=== PATIENT | female | born 1975 | race Two or more races ===

== ENCOUNTER 2021-04-10 08:21 | Outpatient (REF) | payer OTHER, SELFPAY ==
--- NOTE | ~2021-04-10 | MM_ITS ---
EXAMINATION: MM SCREENING DIGITAL BREAST TOMOSYNTHESIS, BILATERAL CLINICAL INFORMATION: Screening. Asymptomatic. The lifetime risk of breast cancer based on the Tyrer-Cuzick Model is 11%. COMPARISON: Mammography: 05/05/2013 (baseline). TECHNIQUE: Digital breast tomosynthesis is performed in both the craniocaudal and mediolateral oblique views along with computer-aided detection (CAD). Synthesized 2D images are generated from the tomosynthesis. FINDINGS: The breasts are heterogeneously dense, which may obscure small masses (ACR BI-RADS breast composition Category c). There is no interval mass or developing density or architectural abnormality. The axilla and skin contours are unremarkable. Left breast has some interval scattered punctate calcifications without focal grouping or ductal distribution. Right breast has more numerous interval punctate calcifications with some loose grouping mid 11:00 position and posterior central position. Patient will be recalled for additional magnification views to fully characterize right breast calcifications. MM/MM tomosynthesis screening BI IMPRESSION: 1. Punctate calcifications with some loose grouping mid 11:00 and posterior central. 2. No significant changes from prior exam. ASSESSMENT: BI-RADS 0: Incomplete - Need Additional Imaging Evaluation RECOMMENDATION: 1. Additional views of the right breast (magnification CC, magnification ML). 2. Radiology department staff will contact the patient for additional imaging. This patient's information was entered into a reminder system with a target due date for their next mammogram.
== END 2021-04-10 08:22 | disposition home or self-care (01) ==
LOC: HO.MAMMO 08:21
PROVIDERS: PCP Internal Medicine; Visit Provider Internal Medicine
DX: Z12.31 Encounter for screening mammogram for malignant neoplasm of breast (principal)
CPT/HCPCS: 77063; 77067

== ENCOUNTER 2021-04-16 08:55 | Outpatient (REF) | payer OTHER, SELFPAY ==
--- NOTE | ~2021-04-16 | MM_ITS ---
EXAMINATION: MM DIAGNOSTIC DIGITAL MAMMOGRAPHY, RIGHT CLINICAL INFORMATION: Recall from screening for calcifications right breast. COMPARISON: Mammography: 04/10/2021 (BI-RADS 0), 05/05/2013 TECHNIQUE: Digital mammography is performed in the following views: Magnification CC x2, magnification ML x3 FINDINGS: The breasts are heterogeneously dense, which may obscure small masses (ACR BI-RADS breast composition Category c). Some of the calcifications mid 11:00 position show layering consistent with milk of calcium. Others are round. There are some other probable benign punctate calcifications central upper right breast and posterior right breast without layering. Results are discussed with the patient at time of visit. There are no additional mammograms between 2013 and 2021. Management plan is for short interval six-month follow-up right mammography to include magnification views. MM/MM added views RT IMPRESSION: Probable benign calcifications right breast in interval between 2013 and 2021. ASSESSMENT: BI-RADS 3: Probably Benign RECOMMENDATION: Diagnostic right mammography in 6 months. This patient's information was entered into a reminder system with a target due date for their next mammogram.
== END 2021-04-16 08:56 | disposition home or self-care (01) ==
LOC: HO.MAMMO 08:55
PROVIDERS: PCP Internal Medicine; Visit Provider Internal Medicine
DX: R92.1 Mammographic calcification found on diagnostic imaging of breast (principal)
CPT/HCPCS: 77065

== ENCOUNTER 2021-05-18 10:00 | Outpatient (REF) | payer OTHER, SELFPAY ==
[2021-05-18 11:23] LABS: MANUAL DIFF FLAG NO
[2021-05-18 11:38] LABS: Basophils Percent Auto 0.3 % (0-2); Eosinophils Absolute Auto 0.2 X10*3/uL (0.0-0.4); Eosinophils Percent Auto 1.9 % (0-4); Hematocrit 39.4 % (37.0-47.0); Hemoglobin 12.5 g/dl (12.0-16.0); Imm Gran Abs Auto 0.05 X10*3/uL (0.00-0.03); Imm Gran Pct Auto 0.6 % (0.0-0.4); Lymphocytes Absolute Auto 3.2 X10*3/uL (1.2-4.9); Lymphocytes Percent Auto 35.8 % (20-40); Mean Corpuscular HGB Conc 31.7 g/dl (31.0-35.0); Mean Corpuscular Hemoglobin 28.3 pg (27.0-33.0); Mean Corpuscular Volume 89.1 fL (80.0-98.0); Mean Platelet Volume 8.7 fL (9.4-12.3); Monocytes Absolute Auto 0.7 X10*3/uL (0.1-1.2); Monocytes Percent Auto 7.6 % (2-11); Neutrophils Absolute Auto 4.8 x10*3/uL (2.0-8.3); Neutrophils Percent Auto 53.8 % (45-73); Platelet Count 464 X10*3/uL (160-400); Red Blood Count 4.42 X10*6/uL (4.20-5.50); White Blood Count 8.9 X10*3/uL (4.8-10.8)
[2021-05-18 12:14] LABS: Alanine Aminotransferase 30 U/L (0-31); Albumin Level 4.7 g/dL (3.5-5.0); Alkaline Phosphatase 57 U/L (39-117); Anion Gap 14 (12-20); Aspartate Amino Transferase 21 U/L (5-31); Bilirubin Total 0.6 mg/dL (0.0-1.0); Blood Urea Nitrogen 11 mg/dL (9-16); Calcium 9.8 mg/dL (8.4-10.2); Carbon Dioxide 25 mmol/L (22-29); Chloride 104 mmol/L (96-108); Cholesterol 238 mg/dL; Estimated Glomerular Filt Rate > 60; Glucose Fasting 115 mg/dL (60-99); HDL Cholesterol 45 mg/dL; LDL Cholesterol Calculated 160 mg/dl; Potassium 4.4 mmol/L (3.3-5.1); Sodium 139 mmol/L (135-145); Triglycerides 168 mg/dL
[2021-05-18 12:36] LABS: TSH reflex Free T4 0.82 uIU/mL (0.32-4.0); Vitamin D 25-OH Total 14.9 ng/mL (>30)
[2021-05-18 12:55] LABS: Appearance Urine TURBID; Color Urine YELLOW; Glucose Urine UA NEG (NEG); Leukocyte Esterase Urine NEG (NEG); Nitrite Urine NEG (NEG); Specific Gravity - Urine >= 1.030 (1.005-1.025); UACC Culture Trigger NO; Urine Blood 2+ (NEG); Urine Ketones NEG (NEG); Urine Protein 1+ MG/DL (NEG-TRACE)
[2021-05-18 13:16] LABS: Amorphous Sediment Urine 4+ /LPF; RBC Urine 0-2 /HPF (0); Squamous Epithelial Cell Urine 1+ /LPF; WBC Urine 0-2 /HPF (0-4)
== END 2021-05-18 10:01 | disposition home or self-care (01) ==
LOC: HO.LAB 10:00
PROVIDERS: PCP Internal Medicine; Referring Provider Internal Medicine; Visit Provider Nurse Practitioner Family
DX: R10.9 Unspecified abdominal pain (principal); K59.00 Constipation, unspecified; Z00.00 Encounter for general adult medical examination without abnormal findings; E78.00 Pure hypercholesterolemia, unspecified; E55.9 Vitamin D deficiency, unspecified
CPT/HCPCS: 36415; 80053; 80061; 81001; 81003; 82306; 84443; 85025; 99202

== ENCOUNTER 2021-07-09 10:58 | Day surgery (SDC) | payer OTHER, SELFPAY ==
[2021-07-09 10:35] VITALS: BMI 30.4
--- NOTE | 2021-07-09 10:57 | HO.ANESPROP2 ---
[facility] Active Problems Active Problems: All Active Problems (Updated 02/13/21 @ 10:11 by Ian La MD) Breast cancer screening (Acute) Colon cancer screening (Acute) Allergic rhinitis (Acute) Vitamin D deficiency (Acute) Pure hypercholesterolemia (Acute) Obesity (BMI 30-39.9) (Acute) Past Medical History Medical History Allergic rhinitis Obesity (BMI 30-39.9) Pure hypercholesterolemia Vitamin D deficiency Family History Family History Father Hypertension Diabetes Mother Medical history unknown Family history of problems with anesthesia: No Surgical History Surgical History No pertinent past surgical history History of Problems with Anesthesia: No Social History Social History Housing: Apartment Alcohol intake: current Alcohol intake frequency: a few times a week Alcohol type: wine and hard liquor Patient Tobacco Use Status: Never used Tobacco Second Hand Smoke Exposure: Yes Use of substances other than those prescribed or required for medical reasons: No Are you DNR?: No Advance Directives: No Advance Directives Information Provided: Yes Nutrition Risks: No Nutritional Risk service: No Current occupational status: employed Meds Allergies Allergy/AdvReac Type Severity Reaction Status Date / Time ibuprofen Allergy Unknown hives Verified 05/18/21 10:09 mold Allergy Unknown Hives Verified 05/18/21 10:09 Penicillins [PENICILLINS] Allergy Unknown Hives Verified 05/18/21 10:09 Active Medications: Current Medications Lactated Ringer's (Lr) 1,000 mls @ 50 mls/hr IVCONT .Q20H [facility] Home Medications Medication Instructions Recorded Confirmed Last Taken Type cetirizine 10 mg tablet (Zyrtec) 10 mg PO DAILY 02/11/20 02/13/21 Unknown History fluticasone propionate 50 1 spray INTRANASAL DAILY 02/11/20 02/13/21 Unknown History mcg/actuation nasal spray,suspension Exam Exam Date and Time: July 09, 2021 1057 Height,Weight and Vital Signs: Height 5 ft 3 in Weight 78.018 kg Airway Mallampati Class: II TM Dist: >3cm Neck ROM: Full Heart: rrr Lungs: cta Assessment and Plan Assessment Anesthesia Assessment: Anesthesia Plan Discussed and Chart Reviewed Final Anesthetic Review Family History of Problems with Anesthesia: No History of Problems with Anesthesia: No NPO: Yes ASA Class: II Final Preanesthetic Review: No Changes in Pt Med Stat, Meds/Allgs Chart Reviewed and Consent Obtained/Reviewed Patient Risk: Intermediate Procedure Risk: Intermediate Anesthetic Plan Anesthetic Plan: MAC: Disposition: Standard PACU
[2021-07-09 11:06] VITALS: BP 133/82; PULSE 102; RESP 17; TEMP 36.6; O2SAT 97
[2021-07-09 11:17] LABS: UPreg QC Valid YES; Urine Pregnancy NEGATIVE (NEGATIVE)
[2021-07-09] MEDS: Lactated Ringers 1,000 ML 50 ML IVCONT (11:22)
--- NOTE | 2021-07-09 11:42 | MHC.SHP ---
Pre-Procedural Eval Section A Date of Service: 07/09/21 The patient is an INPATIENT: No The History & Physical has been completed within 30 days and I have reviewed it.: No Section B Chief Complaint: screening Relevant Family History (Specify if Yes): No Relevant Social History: None Present Medications: see Short Stay Collaborative assessment Medical History: Significant History (Allergic rhinitis Obesity (BMI 30-39.9) Pure hypercholesterolemia Vitamin D deficiency) History of Previous Operations: No relevant previous surgery Allergies: Allergies Allergy/AdvReac Type Severity Reaction Status Date / Time ibuprofen Allergy Unknown hives Verified 05/18/21 10:09 mold Allergy Unknown Hives Verified 05/18/21 10:09 Penicillins [PENICILLINS] Allergy Unknown Hives Verified 05/18/21 10:09 Review of Systems Sugical H&P ROS: Negative: Constitution, Cardiovascular and Respiratory and Yes, Specify: Gastrointestinal (intermittent LLQ pain) Exam Surgical H&P Exam: Normal: Heart, Normal: Lungs, Normal: Extremities and Normal: Abdomen Plan Diagnosis/Plan: Unchanged I have reviewed the history and physical and performed a pertinent physical examination on my patient. No changes have occurred unless specified.
--- NOTE | 2021-07-09 11:48 | W.PM.OPN ---
Operative Note Operative Note Date of Service: 07/09/21 Narrative: Pre-op diagnosis: Colon cancer screening, intermittent left lower quadrant pain and diarrhea Post-op diagnosis:?other (Colon polyps, diverticulosis, hemorrhoids) Procedure: COLONOSCOPY TILL CECUM WITH BIOPSIES Consent: Indications for the procedure and potential complications of bleeding, perforation, reaction to medications and missed diagnosis were discussed with the patient and informed consent was obtained. Instrument: Olympus PCF H 190 L variable stiffness pediatric colonoscope Monitoring: Vital signs and clinical assessment, intermittent blood pressure monitoring, continuous EKG monitoring, Pulse oximetry and Carbon Dioxide monitoring were done throughout the procedure. Colon withdrawl time was 19 minutes. Procedure: The patient was placed in the left lateral decubitis position and pre-procedure medications were administered. After a digital rectal examination of the ano-rectum, the video colonoscope was inserted into the rectum and advanced through the colon to the cecum. The colonoscope was slowly withdrawn in a retrograde panoramic fashion and the colon mucosa was carefully examined including a retroflexed view of the rectum. Findings and interventions are described below. Procedure Difficulty: Without difficulty - colon was long and tortuous and there was some loop formation. Findings: Terminal Ileum: Not evaluated Cecum:? Normal Ascending Colon:? A 5-6 mm sessile polyp in the distal ascending colon removed with a cold biopsy Transverse Colon:? Scattered moderate diverticulosis Descending Colon:? Scattered moderate diverticulosis Sigmoid Colon:? Severe diverticulosis with luminal narrowing Rectum:? Normal Ano-rectum:? Moderate internal hemorrhoids Colon preparation:? Good after some irrigation Impression and Post Procedure Diagnosis: Colonoscopy Findings: One small polyps removed. Random biopsies were obtained from the right and left colon to check for microscopic colitis. Moderate diverticulosis seen in the transverse and left colon Moderate hemorrhoids on retroflexed exam. Plan: Await pathology results Patient has an appointment on 08/01/21in the [facility] with Neva Morgan FNP-BC . Repeat Colonoscopy interval based on path results - in 5 years if polyps are adenomatous and 10 years if polyps are hyperplastic. Above findings were reviewed with the patient and colon polyps and diverticulosis handouts were given in the discharge area Surgeon: Hector Gautam MD Anesthesia:?MAC (Dr Carbajal) Was an Sample Taker Operator used for this Procedure?:?Yes Sample Taker Operator:?Anne Marie Cavazos Estimated blood loss (mL):?0 Pathology:?other (a: right colon bx's, r/o microscopic colitis? b: ascending colon polyp? c: left colon bx's, r/o microscopic colitis) Condition:?stable Disposition:?PACU
[2021-07-09 12:36] VITALS: BP 119/71; PULSE 83; RESP 16; TEMP 36.2; O2SAT 99
[2021-07-09 12:51] VITALS: BP 122/76; PULSE 76; RESP 16; TEMP 36.2; O2SAT 100
== END 2021-07-09 13:37 | disposition home or self-care (01) ==
PROVIDERS: PCP Internal Medicine; Visit Provider Internal Medicine Gastroenterology
PROC: 0DJD8ZZ Inspection of Lower Intestinal Tract, Via Natural or Artificial Opening Endoscopic (ICD-10-PCS; CPT 45378; principal; 2021-07-09 12:00)
DX: Z12.11 Encounter for screening for malignant neoplasm of colon (principal); K63.5 Polyp of colon; K57.30 Diverticulosis of large intestine without perforation or abscess without bleeding; K64.8 Other hemorrhoids; R19.7 Diarrhea, unspecified; J30.9 Allergic rhinitis, unspecified; E78.00 Pure hypercholesterolemia, unspecified; E55.9 Vitamin D deficiency, unspecified; E66.9 Obesity, unspecified; Z68.30 Body mass index [BMI] 30.0-30.9, adult; Z79.51 Long term (current) use of inhaled steroids; Z88.0 Allergy status to penicillin; Z88.8 Allergy status to other drugs, medicaments and biological substances
CPT/HCPCS: 45380; 81025; 88305

== ENCOUNTER 2021-10-16 15:04 | Outpatient (REF) | payer OTHER, SELFPAY ==
--- NOTE | ~2021-10-16 | MM_ITS ---
EXAMINATION: MM DIAGNOSTIC DIGITAL BREAST TOMOSYNTHESIS, RIGHT CLINICAL INFORMATION: Short interval six-month follow-up for probable benign calcifications 11:00 and central posterior right breast. The lifetime risk of breast cancer based on the Tyrer-Cuzick Model is 11%. COMPARISON: Mammography: 04/16/2021, 04/10/2021 (BI-RADS 0), 05/05/2013 TECHNIQUE: Digital breast tomosynthesis is performed in both the craniocaudal and mediolateral oblique views along with computer-aided detection (CAD). Synthesized 2D images are generated from the tomosynthesis. Additional magnification CC and magnification ML x2 views are obtained. FINDINGS: The breasts are heterogeneously dense, which may obscure small masses (ACR BI-RADS breast composition Category c). Parenchymal pattern is similar to prior exam. No interval mass or architectural abnormality. The right breast calcifications for follow-up, new between 2013 and 2021 are similar to prior diagnostic exam. There are no increasing calcifications or interval pleomorphic types. Some of the calcifications grouped on 11:00 show layering consistent with milk of calcium. The right breast calcifications will be reassessed again at time of annual bilateral mammography, due in 6 months. Results are provided to the patient at time of visit by the technologist. MM/MM tomosynthesis diagnostic RT IMPRESSION: Right breast calcifications for follow-up appear similar to prior diagnostic exam. They will be reassessed again at time of annual bilateral mammography, due in 6 months. ASSESSMENT: BI-RADS 3: Probably Benign RECOMMENDATION: Diagnostic mammography at time of annual mammography, due in 6 months. This patient's information was entered into a reminder system with a target due date for their next mammogram.
== END 2021-10-16 15:05 | disposition home or self-care (01) ==
LOC: HO.MAMMO 15:04
PROVIDERS: PCP Internal Medicine; Visit Provider Internal Medicine
DX: R92.1 Mammographic calcification found on diagnostic imaging of breast (principal)
CPT/HCPCS: 77061; 77065

== ENCOUNTER 2022-04-19 08:54 | Outpatient (REF) | payer OTHER, SELFPAY ==
--- NOTE | ~2022-04-19 | MM_ITS ---
EXAMINATION: MM DIAGNOSTIC DIGITAL BREAST TOMOSYNTHESIS, BILATERAL CLINICAL INFORMATION: Due for yearly. Also follow-up probable benign calcifications right breast. The lifetime risk of breast cancer based on the Tyrer-Cuzick Model is 11%. COMPARISON: Mammography: 10/16/2021, 04/16/2021, 04/10/2021 (BI-RADS 0), 05/05/2013 TECHNIQUE: Digital breast tomosynthesis is performed in both the craniocaudal and mediolateral oblique views along with computer-aided detection (CAD). Synthesized 2D images are generated from the tomosynthesis. Additional magnification right CC and magnification right ML views are obtained. FINDINGS: The breasts are heterogeneously dense, which may obscure small masses (ACR BI-RADS breast composition Category c). Parenchymal pattern is similar to prior studies and there is no significant mass or developing density or architectural abnormality. The axilla and skin contours are unremarkable. Again, there are scattered calcifications left breast and more numerous calcifications right. Right calcifications for follow-up are similar to prior diagnostic exam. There are many calcifications layering in the posterior 11:00 position. Right breast calcifications will be reassessed again in 6 months to include magnification views. Results are provided to the patient at time of visit by the technologist. MM/MM tomosynthesis diagnostic BI IMPRESSION: No significant change from prior exam. ASSESSMENT: BI-RADS 3: Probably Benign RECOMMENDATION: Diagnostic right mammography in 6 months. This patient's information was entered into a reminder system with a target due date for their next mammogram.
== END 2022-04-19 08:55 | disposition home or self-care (01) ==
LOC: HO.MAMMO 08:54
PROVIDERS: PCP Internal Medicine; Visit Provider Internal Medicine
DX: R92.1 Mammographic calcification found on diagnostic imaging of breast (principal)
CPT/HCPCS: 77062; 77066

== ENCOUNTER 2022-10-31 14:58 | Outpatient (REF) | payer OTHER, SELFPAY ==
--- NOTE | ~2022-10-31 | MM_ITS ---
EXAMINATION: MM DIAGNOSTIC DIGITAL BREAST TOMOSYNTHESIS, RIGHT CLINICAL INFORMATION: 6 month Follow-up right breast calcifications, 1.5 years stability. COMPARISON: Mammography: 04/19/2022, 10/16/2021, 04/16/2021, 04/10/2021. TECHNIQUE: Digital right breast tomosynthesis is performed in both the craniocaudal and mediolateral oblique views along with computer-aided detection (CAD). Synthesized 2D images are generated from the tomosynthesis. In addition, 2-D magnification CC and ML views of the right breast were obtained. FINDINGS: The breasts are heterogeneously dense, which may obscure small masses (ACR BI-RADS breast composition Category c). There are numerous calcifications throughout the right breast parenchyma predominantly centrally and superiorly, which clearly demonstrate extensive layering on the 90 degree ML projection both on the current exam and prior exams, and is consistent with milk of calcium layering in microcysts. These are benign and no further follow-up is necessary. Otherwise, no suspicious masses, new areas of suspicious calcification, or areas of architectural distortion within the right breast. The parenchymal pattern is stable from prior exams. MM/MM tomosynthesis diagnostic RT IMPRESSION: Calcifications in the right breast are benign, related to milk of calcium and have remained unchanged for 1.5 years. No further follow-up deemed necessary. No findings suspicious for malignancy right breast. Recommend the patient resume annual routine mammography. ASSESSMENT: BI-RADS BI-RADS 2 - Benign Findings RECOMMENDATION: 1 year F/U Results were provided to the patient at time of visit by the technologist. This patient's information was entered into a reminder system with a target due date for their next mammogram.
== END 2022-10-31 14:59 | disposition home or self-care (01) ==
LOC: HO.MAMMO 14:58
PROVIDERS: PCP Internal Medicine; Visit Provider Internal Medicine
DX: R92.1 Mammographic calcification found on diagnostic imaging of breast (principal)
CPT/HCPCS: 77061; 77065

== ENCOUNTER → 2022-10-31 15:00 | Outpatient (BNV) | payer OTHER, SELFPAY | PROVIDERS: PCP Internal Medicine; Visit Provider Radiology Diagnostic Radiology | DX: R92.1 Mammographic calcification found on diagnostic imaging of breast (principal) | CPT/HCPCS: 77061; 77065 ==

== ENCOUNTER 2023-02-20 10:09 | Outpatient (AMB) | payer OTHER, SELFPAY ==
[2023-02-20 10:11] VITALS: BP 130/100; PULSE 90; O2SAT 97; BMI 31.2
--- NOTE | 2023-02-20 10:11 | A.OFFPC_ITS ---
Vital Signs 02/20/23 10:11 02/20/23 10:52 Height 5 ft 3 in Weight 176 lb 2 oz BMI 31.2 BP 130/100 H 134/92 H Blood Pressure Location Lt brachial Lt brachial Position Sitting Sitting Pulse 90 Pulse Source Pulse Oximeter Pulse Oximetry (%) 97 Intake Visit Reasons: Annual Exam Accompanied by: Self / Same As Patient Allergies ibuprofen Allergy (Unknown, Verified 02/20/23 10:47) hives mold Allergy (Unknown, Verified 02/20/23 10:47) Hives Penicillins [PENICILLINS] Allergy (Unknown, Verified 02/20/23 10:47) Hives Medication List - Last Reconciled 02/20/23 by Ian La MD cetirizine (Zyrtec) 10 mg PO DAILY fluticasone propionate 50 mcg/actuation 1 spray intranasal DAILY Tobacco use date assessed: 02/20/23 Dental Screening Dental Screen Date: 02/20/23 Did you have a dental visit in the last 12 months?: No Did you have a dental problem in the last 6 months where you did not have access to dental care?: No Was dental information given to patient?: No HPI Annual Exam HPI Details Patient comes in today for her annual physical examination States that she feels okay but has been under stress lately in trying to catch up on some work to close out the year She denies any headaches or dizziness Denies any chest pains, no SOB No nausea/vomiting, no abdominal pain No change in bowel habits noted Denies any acute urinary symptoms Had her mammogram done last October 2022 and is scheduled for her 6 months follow up in May 2023 Had her screening colonoscopy done last year (2021) and repeat colonoscopy will be in 10 years (2031) 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 done in 2019 and she is overdue for these Was not able to get her follow up labs done yet - states that she will try to get them done MASSIEL Would also like to get her flu shot today [facility] Medical History Impaired fasting glucose Colon cancer screening Allergic rhinitis Vitamin D deficiency Pure hypercholesterolemia Obesity (BMI 30-39.9) Surgical History History of colonoscopy (~07/09/21) Family History Father Hypertension Diabetes Mother Medical history unknown Social History Housing: Apartment Alcohol intake: current Alcohol intake frequency: a few times a week Alcohol type: wine and hard liquor Patient Tobacco Use Status: Never used Tobacco e-Cigarette/Vaping Use: Never Used Second Hand Smoke Exposure: Yes service: No Current occupational status: employed Cognitive needs: No Hearing needs: No Vision needs: No Questionnaire PHQ-9 Over the last 2 weeks, how often have you been bothered by any of the following problems? 1. Little interest or pleasure in doing things: not at all 2. Feeling down, depressed, or hopeless: not at all 3. Trouble falling or staying asleep, or sleeping too much: not at all 4. Feeling tired or having little energy: not at all 5. Poor appetite or overeating: not at all 6. Feeling bad about yourself - or that you are a failure or have let yourself or your family down: not at all 7. Trouble concentrating on things, such as reading the newspaper or watching television: not at all 8. Moving or speaking so slowly that other people could have noticed. Or the opposite - being so fidgety or restless that you have been moving around a lot more than usual: not at all 9. Thoughts that you would be better off or of hurting yourself in some way: not at all Total score: 0 Depression Screening Interpretation: Negative Depression Screening Done: Yes 76975 - PHQ-9 Billing: Yes Source: Developed by Drs. Taurus Banks, Pam Spencer, Eddie Briseno and colleagues, with an educational william from [employer]. Thrive Questionnaire Date Thrive assessed: 02/20/23 I am a: Patient What is your living situation today?: I have a steady place to live Within the past 12 months, did the food you bought not last and you didn't have the money to get more?: Never true Within the past 12 months, did you worry whether your food would run out before you got money to buy more?: Never true Do you have trouble paying for medicines?: No Do you have trouble getting transportation to medical appointments?: No Do you have trouble paying your heating and electricity bill?: No Do you have trouble taking care of your child, family member or friend?: No Do you have trouble with day-to-day activities such as bathing, preparing meals, shopping, managing finances, etc.?: No Are you currently unemployed and looking for a job?: No Are you interested in more education?: No Please select the resources that you would like help with: None Currently or been in a relationship where the following occur: no concerns reported AUDIT C Alcohol Use Questionnaire (AUDIT-C) 1. How often do you have a drink containing alcohol?: 2-3 times a week 2. How many drinks containing alcohol do you have on a typical day when you are drinking?: 1 or 2 3. How often do you have six or more drinks on one occasion?: Never Total Score: 3 Score Reviewed/Action Taken: Yes KARLA-7 AMB Questionnaire KARLA-7 Date KARLA - 7 assessed: 02/20/23 Feeling nervous, anxious, or on edge: 0 = Not at all Not being able to stop or control worryin = Not at all Worrying too much about different things: 0 = Not at all Trouble relaxin = Not at all Being so restless that it is hard to sit still: 0 = Not at all Becoming easily annoyed or irritable: 0 = Not at all Feeling afraid as if something awful might happen: 0 = Not at all Total KARLA-7 score (0-4 normal; 5-9 mild; 10-14 moderate; 15-21 severe): 0 Source: Developed by Drs. Taurus Banks, Pam Spencer, Eddie Briseno and colleagues, with an educational william from [employer]. Review of Systems Const Denies chills, Denies fatigue, Denies fever(s), Denies headache(s) and Denies malaise Eyes Denies blurry vision, Denies change in vision, Denies irritation and Denies itchy eyes ENT Denies dysphagia, Denies dizziness, Denies otalgia, Denies headache(s), Denies nasal congestion, Denies neck pain, Denies odynophagia, Denies sinus pain and Denies sore throat Card Denies chest pain, Denies rapid heart rate, Denies irregular heart rhythm, Denies palpitations and Denies dyspnea Resp Denies chest congestion, Denies cough, Denies dyspnea and Denies wheezing GI Denies abdominal pain, Denies bloating, Denies constipation, Denies dysphagia, Denies heartburn, Denies diarrhea, Denies nausea, Denies odynophagia and Denies vomiting Denies hematuria, Denies urinary frequency, Denies dysuria, Denies urinary incontinence and Denies urinary urgency Musc Denies back pain, Denies arthralgias, Denies joint swelling, Denies muscle weakness and Denies neck pain Skin/Breast Denies breast pain, Denies breast mass, Denies change in pigmentation, Denies lesions, Denies rash and Denies unusual bruising Neuro Denies dizziness, Denies headache(s) and Denies paresthesias Psych Reports anxiety (increased stress lately - see HPI) and Denies depression Endo Denies fatigue and Denies palpitations Krishna/Lymph Denies easy bruising Aller/Immun Denies itchy eyes and Denies wheezing Physical exam (Primary Care) Vital Signs: Last Vital Signs Pulse 90 02/20/23 10:11 BP 134/92 H 02/20/23 10:52 Pulse Ox 97 02/20/23 10:11 BMI result Body Mass Index 31.2 Tobacco/Smoking Status: Tobacco use Status Tobacco use date assessed 02/20/23 02/20/23 10:16 Patient Tobacco Use Status Never used Tobacco 02/20/23 10:16 e-Cigarette/Vaping Use Never Used 02/20/23 10:16 PHQ-9: PHQ-9 Score PHQ-9: Total score 0 02/20/23 10:55 Depression Screening Interpretation: Negative Thrive Assessment: Date of Thrive Assessment Date Thrive assessed 02/20/23 02/20/23 10:16 Currently or been in a relationship where the following occur: no concerns reported Const General: no acute distress, alert and awake Orientation/consciousness: patient oriented x3 HENMT Head: Yes normocephalic and Yes atraumatic Ears: external ears normal, TM's normal bilaterally and EAC's normal General nose exam: No nasal discharge present Face and sinus: Yes normal facial exam and Yes sinuses nontender Teeth and gingiva: dentition normal Throat: Yes posterior oropharynx normal and Yes tonsils normal (no TP congestion) Eyes Eyelids: Yes eyelids normal Conjunctivae: conjunctivae normal Pupils: Equal, round and reactive pupils present EOM: EOMs intact bilaterally Neck Neck: Yes no lymphadenopathy and Yes supple Thyroid: Thyroid normal Resp Auscultation: clear to auscultation bilaterally, no rales and no wheezes Cardio Rate: regular rate Rhythm: regular rhythm Heart sounds: no murmurs GI Palpation (GI): Soft to palpation, nontender and No hepatosplenomegaly present Auscultation: normal bowel sounds General: Yes no CVA tenderness Back/Spine/Pelvis Back: no CVA tenderness Thoracic/Lumbar Spine: thoracic and lumbar spine normal to inspection Skin Lesions: no lesions Rashes: no rashes Neuro General: patient oriented x3, moves all extremities, no focal motor deficits and CN's II-XI intact bilaterally Cranial nerves: Yes Equal, round and reactive pupils present Cognition (Neuro): normal cognition Gait exam (Neuro): Normal gait present Extrem General: Yes no clubbing, cyanosis or edema Office Procedures Flu Questionnaire Does the patient have a severe egg allergy?: No Does the patient have severe life threatening allergies?: No Does the patient have a fever or illness today?: No Has the patient ever had Guillain-[place] Syndrome?: No Has the patient ever had any past reaction to a flu shot?: No Immunizations flu vacc [id number] 6mos up(PF) 60 mcg(15 mcgx4)/0.5 mL IM syringe Performing Provider: Ian La MD Performing Location: [facility] Administered by: Bandar Hay on 02/20/23 11:00 Dose Route Admin Location Dispensed Lot Number Expiration Date [facility] Die Holder 0.5 mL IM Left Deltoid 0.5 mL [id number] 08/31/23 57345-775-94 Zipments VIS Given Date VIS Provided VIS Publication Date 02/20/23 Single Vaccine 20 Eligibility Eligibility Date Funding Source Not [facility] Eligible 02/20/23 Private Assessment and Plan Assessment & Plan (1) Annual physical exam: Code(s): Z00.00 - Encounter for general adult medical examination without abnormal findings Plan: Check labs MASSIEL - labs were all previously ordered She is up-to-date with her colon and breast cancer screenings but is overdue for her cervical cancer screening (last done a few years ago) (2) Pure hypercholesterolemia: Code(s): E78.00 - Pure hypercholesterolemia, unspecified Plan: Reinforced low cholesterol diet She is reminded that her cholesterol levels on her previous labs done last year have increased significantly from previous - patient still prefers to continue working on her diet for now and avoid taking cholesterol Rx as much as possible States that she will try to go and get her follow up labs done MASSIEL - advised that we will check back with her if her results come out not as expected Will have her recheck her labs and fasting lipids again in 6 months prior to her next visit (3) Impaired fasting glucose: Code(s): R73.01 - Impaired fasting glucose Plan: Reminded patient also that her fasting serum glucose level have also been steadily rising over the years and was last at 115 mg/dl last year Patient has been encouraged to start losing weight, exercise regularly and watch her diet (low calorie diet) to help lower her risks of progression to diabetes Will recheck her FBS and also check her HgbA1c MASSIEL and again in 6 months for follow up (4) Vitamin D deficiency: Code(s): E55.9 - Vitamin D deficiency, unspecified Plan: Continue OTC Vitamin D3 1000 units QD (5) Allergic rhinitis: Code(s): J30.9 - Allergic rhinitis, unspecified Qualifiers: Allergic rhinitis trigger: unspecified Allergic rhinitis seasonality: seasonal Qualified Code(s): J30.2 - Other seasonal allergic rhinitis Plan: Continue Cetirizine 10 mg QD and Fluticasone 50 mcg nasal spray QD PRN (6) Obesity (BMI 30-39.9): Code(s): E66.9 - Obesity, unspecified Plan: Reinforced diet/exercise as tolerated/lose weight (7) Cervical cancer screening: Code(s): Z12.4 - Encounter for screening for malignant neoplasm of cervix Plan: [facility] for her annual pap smear and crm marketing manager exam Plan Flu vaccine given today Follow up in 6 months Orders: Orders Vitamin D 25-OH Total 6 Months E55.9 - Vitamin D deficiency, unspecified Comprehensive [place]. Panel Fast 6 Months E78.00 - Pure hypercholesterolemia, unspecified Hemoglobin A1c 6 Months R73.01 - Impaired fasting glucose Influenza [id number] Immunization 02/20/23 Z23 - Encounter for immunization Lipid Panel 6 Months E78.00 - Pure hypercholesterolemia, unspecified TSH reflex Free T4 6 Months E78.00 - Pure hypercholesterolemia, unspecified Referrals ACCIDENT REPORT CLERK Referral Z12.4 - Encounter for screening for malignant neoplasm of cervix Coding Level of Care Code Est Pt Prev Care 40-64y(78621) Diagnoses Annual physical exam Z00.00 Pure hypercholesterolemia E78.00 Impaired fasting glucose R73.01 Vitamin D deficiency E55.9 Seasonal allergic rhinitis, unspecified trigger J30.2 Allergic rhinitis trigger: unspecified Allergic rhinitis seasonality: seasonal Obesity (BMI 30-39.9) E66.9 Cervical cancer screening Z12.4
[2023-02-20 10:52] VITALS: BP 134/92
== END 2023-02-20 11:01 | disposition home or self-care (01) ==
PROVIDERS: Visit Provider Internal Medicine
DX: Z23 Encounter for immunization (principal)
CPT/HCPCS: 90471; 90686; 99396

== ENCOUNTER 2023-04-14 08:08 | Outpatient (REF) | payer OTHER, SELFPAY ==
[2023-04-14 13:28] LABS: CT PCR NOT DETECTED (Not Detect.); NG PCR NOT DETECTED (Not Detect.)
[2023-04-16 18:53] LABS: HPV mRNA E6/E7 rflx Not Detected (Not Detected)
== END 2023-04-14 08:09 | disposition home or self-care (01) ==
LOC: HO.LNP 08:08
PROVIDERS: PCP Internal Medicine; Visit Provider Obstetrics & Gynecology
DX: Z01.419 Encounter for gynecological examination (general) (routine) without abnormal findings (principal); N93.9 Abnormal uterine and vaginal bleeding, unspecified
CPT/HCPCS: 0353U; 87624; 88142; 99386

== ENCOUNTER 2023-04-14 08:08 | Outpatient (AMB) | payer OTHER, SELFPAY ==
[2023-04-14 08:19] VITALS: BP 124/80; BMI 30.6
--- NOTE | 2023-04-14 08:19 | MHC.OFFVIS ---
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 Complaining of irregular menstrual cycles over the last few months. Last Pap was negative in 07/19, no HPV done Last Mammogram was BI-RADS 2 in 10/23, the patient is scheduled for a six-month follow-up mammogram in few weeks Last Colonoscopy was in 07/22, the recommendation was to repeat in 10 years [facility] Medical History Impaired fasting glucose Colon cancer screening Allergic rhinitis Vitamin D deficiency Pure hypercholesterolemia Obesity (BMI 30-39.9) Surgical History History of colonoscopy (~07/09/21) Family History Father Hypertension Diabetes Mother Medical history unknown Social History Housing: Apartment Alcohol intake: current Alcohol intake frequency: a few times a week Alcohol type: wine and hard liquor Patient Tobacco Use Status: Never used Tobacco e-Cigarette/Vaping Use: Never Used Second Hand Smoke Exposure: Yes service: No Current occupational status: employed Cognitive needs: No Hearing needs: No Vision needs: No Female Reproductive History Menstrual Date of last menstrual period: 04/10/23 Total pregnancies: 0 Date of last pap smear: 07/08/18 (neg) History of abnormal pap smear: Yes (2008 path) Date of Mammogram: 10/31/22 Review of Systems Const All systems reviewed & are unremarkable except as noted in HPI and below Card Reports as per HPI Resp Reports as per HPI GI Reports as per HPI and Reports no additional complaints Reports as per HPI Physical Exam Vital Signs: BMI result Body Mass Index 30.6 Const General: cooperative, healthy appearing and comfortable Chest Chest palpation & inspection: normal inspection of the chest and normal palpation of entire chest wall Breast/axilla inspection: normal inspection of the breasts and normal inspection of the axillae Breast/axilla palpation: normal palpation of the breasts, normal palpation of the axillae and no axillary lymphadenopathy Resp Effort & Inspection: normal respiratory effort Auscultation: clear to auscultation bilaterally Percussion: percussion normal Cardio Palpation: normal PMI Rate: regular rate Rhythm: regular rhythm Heart sounds: no murmurs and no rubs Peripheral pulses: Peripheral pulses 2+ throughout GI Inspection: Yes normal to inspection Palpation (GI): Soft to palpation, nontender, no guarding, not rigid and No hepatosplenomegaly present Percussion: Yes normal to percussion Auscultation: normal bowel sounds Rectal Exam - Female: deferred General: Yes bladder normal to palpation External Female Exam: No lesion Speculum Exam - Vagina: normal appearance of the vagina, normal palpation, normal vaginal discharge and not erythematous Speculum Exam - Cervix: normal appearance of the cervix and normal palpation Bimanual exam- vagina & uterus: normal bimanual exam, normal palpation, uterine size normal, bladder normal to palpation, consistency normal and normal palpation Bimanual Exam- Adnexa, other: normal adnexae, no masses and no tenderness Assessment & Plan Assessment & Plan (1) Well woman exam: Code(s): Z01.419 - Encounter for gynecological examination (general) (routine) without abnormal findings Plan: Cotesting done. The patient is scheduled for her next screening six-month follow-up Mammogram in few weeks. Counseled the patient about the recommended dietary allowance of 1000 mg of Calcium & 600 IU of vitamin D. The patient was instructed to perform monthly self-breast exams and to schedule an annual exam in a year; All questions answered and the patient verbalized understanding. Instructed the patient to schedule annual exam in a year (2) Abnormal uterine bleeding (AUB): Code(s): N93.9 - Abnormal uterine and vaginal bleeding, unspecified Plan: Co testing done, GC and chlamydia taken CBC, TSH, prolactin, FSH/LH, HCG, and pelvic ultrasound ordered. Discussed with the patient the different causes of abnormal bleeding including thyroid disorders, uterine and ovarian pathology, endometrial hyperplasia, carcinoma and other potential causes. Discussed with the patient the work up including CBC (to r/o anemia), TSH, prolactin, FSH/LH, pelvic Ultrasound, endometrial biopsy to r/o endometrial pathology. All questions answered and the patient verbalized understanding. Instructed the patient to schedule an appointment for an endometrial biopsy in 2 weeks. Orders: Orders Prolactin Today N93.9 - Abnormal uterine and vaginal bleeding, unspecified TSH reflex Free T4 Today N93.9 - Abnormal uterine and vaginal bleeding, unspecified Follicle Stimulating Hormone Today N93.9 - Abnormal uterine and vaginal bleeding, unspecified Complete Blood Count no Diff Today N93.9 - Abnormal uterine and vaginal bleeding, unspecified HCG Quantitative Today N93.9 - Abnormal uterine and vaginal bleeding, unspecified Lutenizing Hormone Today N93.9 - Abnormal uterine and vaginal bleeding, unspecified US pelvic and transvaginal Today N93.9 - Abnormal uterine and vaginal bleeding, unspecified Coding Level of Care Code New Pt Prev Care 40-64y(15586) Diagnoses Well woman exam Z01.419 Abnormal uterine bleeding (AUB) N93.9
== END 2023-04-14 09:02 | disposition home or self-care (01) ==
PROVIDERS: PCP Internal Medicine; Visit Provider Obstetrics & Gynecology
DX: Z01.419 Encounter for gynecological examination (general) (routine) without abnormal findings (principal); N93.9 Abnormal uterine and vaginal bleeding, unspecified
CPT/HCPCS: 99386

== ENCOUNTER 2023-05-02 11:10 | Outpatient (REF) | payer OTHER, SELFPAY ==
--- NOTE | ~2023-05-02 | US_ITS ---
EXAMINATION: US PELVIS CLINICAL INFORMATION: Abnormal uterine and vaginal bleeding, unspecified LMP 04/10/2023 COMPARISON: None available. TECHNIQUE: Ultrasound of the pelvis is performed using both transabdominal and transvaginal transducers along with Doppler. Transvaginal imaging is performed due to inadequate visualization transabdominally. FINDINGS: Uterus: The uterus is anteverted and measures 8.5 x 5.6 x 6.0 cm. There are multiple fibroids includin.3 x 2.1 x 2.4 cm anterior subserosal fibroid in the fundus. 4.6 x 5.3 x 4.9 cm exophytic fibroid off the fundus on the right. 1.3 x 1.1 x 1.5 cm partly calcified subserosal fundal fibroid. 1.7 x 1.6 x 1.9 cm posterior intramural fibroid in the body the uterus. The endometrial thickness is 1.7 cm. Upper limits of normal is 1.6 cm. Adnexa: Both ovaries are visualized. There is normal color flow to the adnexa. There is no ovarian torsion. There is no pelvic ascites or fluid collection. Right ovary measures 3.0 x 1.7 x 1.8 cm. Volume 4.9 cm Left ovary measures 2.0 x 2.6 x 1.8 cm. Volume 7.4 mL. There is a small amount of free fluid within the left adnexa. US/US pelvic and transvaginal IMPRESSION: 1. Multiple uterine fibroids. 2. Thickened endometrium. 3. Normal ovaries.
[2023-05-02 13:48] LABS: Hematocrit 33.4 % (37.0-47.0); Hemoglobin 10.4 g/dl (12.0-16.0); Mean Corpuscular HGB Conc 31.1 g/dl (31.0-35.0); Mean Corpuscular Hemoglobin 23.9 pg (27.0-33.0); Mean Corpuscular Volume 76.6 fL (80.0-98.0); Mean Platelet Volume 8.8 fL (9.4-12.3); Platelet Count 515 X10*3/uL (160-400); Red Blood Count 4.36 X10*6/uL (4.20-5.50); Red Cell Distribution Width 15.7 % (11.0-16.0); White Blood Count 8.3 X10*3/uL (4.8-10.8)
[2023-05-02 13:54] LABS: Appearance Urine Clear; Color Urine Yellow; Glucose Urine UA Negative (Negative); Leukocyte Esterase Urine Negative (Negative); Nitrite Urine Negative (Negative); PH 6.5 (5.0-9.0); Specific Gravity - Urine <= 1.005 (1.005-1.025); Urine Blood Negative (Negative); Urine Ketones Negative (Negative); Urine Protein Negative (Neg-Trace)
[2023-05-02 14:16] LABS: Estimated Average Glucose 126 mg/dL
[2023-05-02 14:43] LABS: Vitamin D 25-OH Total 18.5 ng/mL (>30)
[2023-05-02 14:44] LABS: Alanine Aminotransferase 16 U/L (0-31); Albumin Level 4.5 g/dL (3.5-5.0); Alkaline Phosphatase 62 U/L (39-117); Anion Gap 14 (12-20); Aspartate Amino Transferase 17 U/L (5-31); Bilirubin Total 0.4 mg/dL (0.0-1.0); Blood Urea Nitrogen 7 mg/dL (9-16); Calcium 9.5 mg/dL (8.4-10.2); Carbon Dioxide 25 mmol/L (22-29); Chloride 104 mmol/L (96-108); Cholesterol 232 mg/dL (<200); Estimated Glomerular Filt Rate > 60; Glucose Fasting 89 mg/dL (60-99); HDL Cholesterol 43 mg/dL (>40); LDL Cholesterol Calculated 160 mg/dL (<100); Sodium 139 mmol/L (135-145); Triglycerides 145 mg/dL (<150)
[2023-05-02 14:53] LABS: HCG Quantitative < 2 mIU/mL; TSH reflex Free T4 1.05 uIU/mL (0.32-4.0)
[2023-05-03 12:04] LABS: Lutenizing Hormone 15.2 mIU/mL; Prolactin 7.8 ng/mL
== END 2023-05-02 11:11 | disposition home or self-care (01) ==
LOC: HO.US 11:10
PROVIDERS: PCP Internal Medicine; Visit Provider Obstetrics & Gynecology
DX: N93.9 Abnormal uterine and vaginal bleeding, unspecified (principal); E78.00 Pure hypercholesterolemia, unspecified; R30.0 Dysuria; R73.01 Impaired fasting glucose; E55.9 Vitamin D deficiency, unspecified; Z00.00 Encounter for general adult medical examination without abnormal findings
CPT/HCPCS: 36415; 76830; 76856; 80053; 80061; 81003; 82306; 83001; 83002; 83036; 84146; 84443; 84702; 85027

== ENCOUNTER → 2023-05-05 16:15 | Outpatient (BNV) | payer OTHER, SELFPAY | PROVIDERS: PCP Internal Medicine; Visit Provider Radiology Diagnostic Radiology | DX: Z12.31 Encounter for screening mammogram for malignant neoplasm of breast (principal) | CPT/HCPCS: 77063; 77067 ==

== ENCOUNTER 2023-05-05 16:16 | Outpatient (REF) | payer OTHER, SELFPAY ==
--- NOTE | ~2023-05-05 | MM_ITS ---
EXAMINATION: MM SCREENING DIGITAL BREAST TOMOSYNTHESIS, BILATERAL CLINICAL INFORMATION: Screening. Asymptomatic. COMPARISON: Mammography: This study is compared with prior exams dating back to 2013. TECHNIQUE: Digital breast tomosynthesis is performed in both the craniocaudal and mediolateral oblique views along with computer-aided detection (CAD). Synthesized 2D images are generated from the tomosynthesis. FINDINGS: The breasts are heterogeneously dense, which may obscure small masses (ACR BI-RADS breast composition Category c). There are no significant masses, abnormal calcifications, or other abnormalities. MM/MM tomosynthesis screening BI IMPRESSION: No mammographic evidence of malignancy. ASSESSMENT: BI-RADS BI-RADS 1 - Negative RECOMMENDATION: Routine annual mammography screening. 1 year F/U This examination should not preclude the clinical evaluation of a suspicious palpable abnormality. This patient's information was entered into a reminder system with a target due date for their next mammogram.
== END 2023-05-05 16:17 | disposition home or self-care (01) ==
LOC: HO.MAMMO 16:16
PROVIDERS: PCP Internal Medicine; Visit Provider Internal Medicine
DX: Z12.31 Encounter for screening mammogram for malignant neoplasm of breast (principal)
CPT/HCPCS: 77063; 77067

== ENCOUNTER 2023-05-21 08:10 | Outpatient (REF) | payer OTHER, SELFPAY ==
[2023-05-27 12:38] LABS: HPV mRNA E6/E7 rflx Not Detected (Not Detected)
== END 2023-05-21 08:11 | disposition home or self-care (01) ==
LOC: HO.LNP 08:10
PROVIDERS: PCP Internal Medicine; Visit Provider Obstetrics & Gynecology
DX: Z12.4 Encounter for screening for malignant neoplasm of cervix (principal); Z11.51 Encounter for screening for human papillomavirus (HPV); N93.9 Abnormal uterine and vaginal bleeding, unspecified; R87.615 Unsatisfactory cytologic smear of cervix
CPT/HCPCS: 58100; 81025; 87624; 88142; 88305; 99212

== ENCOUNTER 2023-05-21 08:10 | Outpatient (AMB) | payer OTHER, SELFPAY ==
[2023-05-21 08:14] VITALS: BP 110/72; BMI 30.5
--- NOTE | 2023-05-21 08:14 | A.OFFVIS_ITS ---
Intake Vital Signs 05/21/23 08:14 Height 5 ft 3 in Weight 171 lb 15.369 oz BMI 30.5 BP 110/72 Intake Visit Reasons: EMB/pap/Ultrasound follow up Battery Starter Required: No Information Interpreted: non-clinical & clinical Central Office Equipment Installer: Central Office Equipment Installer Present (Radha Lyles STUART) Accompanied by: Self / Same As Patient Allergies ibuprofen Allergy (Unknown, Verified 05/21/23 08:23) hives mold Allergy (Unknown, Verified 05/21/23 08:23) Hives Penicillins [PENICILLINS] Allergy (Unknown, Verified 05/21/23 08:23) Hives Is last menstrual period known: Yes Last menstrual period: 05/16/23 HPI HPI Comments History of Present Illness Details Presenting for EMB and repeat Pap last Pap smear was unsatisfactory because of obscuring blood. [facility] Medical History Impaired fasting glucose Colon cancer screening Allergic rhinitis Vitamin D deficiency Pure hypercholesterolemia Obesity (BMI 30-39.9) Surgical History History of colonoscopy (~07/09/21) Family History Father Hypertension Diabetes Mother Medical history unknown Social History Housing: Apartment Alcohol intake: current Alcohol intake frequency: a few times a week Alcohol type: wine and hard liquor Patient Tobacco Use Status: Never used Tobacco e-Cigarette/Vaping Use: Never Used Second Hand Smoke Exposure: Yes service: No Current occupational status: employed Cognitive needs: No Hearing needs: No Vision needs: No Female Reproductive History Menstrual Date of last menstrual period: 05/16/23 Physical Exam Vital Signs: Last Vital Signs BP 110/72 05/21/23 08:14 BMI result Body Mass Index 30.5 Office Procedures Endometrial Biopsy Details: The patient was counseled regarding the indication and benefits of endometrial sampling to rule out endometrial pathology including not limited to endometrial hyperplasia or endometrial cancer and others; The alternatives (Either do nothing vs. hysteroscopy D&C) & the risks were discussed with the patient including but not limited: pain, uterine perforation, bleeding, infection, possible injury to bladder, bowel, ureter, possible need for blood transfusion with all its possible risks. The patient verbalized understanding all questions answered and signed consent. Urine test done in the office was negative The patient was placed into the dorsal lithotomy position; a speculum was inserted in the vagina. Using aseptic technique for the procedure, the cervix was cleansed with Betadine. The anterior lip of the cervix was grasped with a single tooth tenaculum. The uterus was sounded to 7 cm with a 4 mm Pipelle was used. Tissues samples were obtained and placed in formalin, in a patient labeled container and sent to the pathology department. At the end of the procedure, there was minimal bleeding noted The patient tolerated the procedure well and was discharged in good condition with the following instructions: Nothing in the vagina until the bleeding stops. No sex until the bleeding stops, to call if any of the following occurs: fever (>100.4), flu-like symptoms, abdominal pain, heavy bleeding, four smelling vaginal discharge. The patient was instructed to schedule a Follow up appointment in 2 weeks to discuss pathology results of the biopsy and treatment options. This note was generated with a voice recognition program. Some errors may have been overlooked during the review of this note. Sometimes these errors may affect the content or meaning of a given sentence. [id number] Biopsy Results AMB Test Urine AMB Test Urine Negative Last Edit by Radha Lyles CMA on 08:30 Assessment & Plan Assessment & Plan (1) Abnormal uterine bleeding (AUB): Code(s): N93.9 - Abnormal uterine and vaginal bleeding, unspecified Plan: EMB done, see procedure note (2) Unsatisfactory cervical Papanicolaou smear: Code(s): R87.615 - Unsatisfactory cytologic smear of cervix Plan: Pap done Orders: Orders AMB Endometrial Biopsy Today N93.9 - Abnormal uterine and vaginal bleeding, unspecified AMB HCG Urine Test Today Z32.02 - Encounter for test, result negative Surgical Today N93.9 - Abnormal uterine and vaginal bleeding, unspecified Coding Level of Care Code Est Pt Level 3 (20220) Procedure Only Diagnoses Abnormal uterine bleeding (AUB) N93.9 Unsatisfactory cervical Papanicolaou smear R87.615 CPT Codes Endometrial Biopsy - CPT: 36350-[id number] Biopsy ([id number])
== END 2023-05-21 08:32 | disposition home or self-care (01) ==
LOC: HO.HWS 08:10
PROVIDERS: PCP Internal Medicine; Visit Provider Obstetrics & Gynecology
DX: N93.9 Abnormal uterine and vaginal bleeding, unspecified (principal); R87.615 Unsatisfactory cytologic smear of cervix; Z32.02 Encounter for pregnancy test, result negative
CPT/HCPCS: 58100; 99213

== ENCOUNTER 2023-07-03 11:46 | Outpatient (AMB) | payer OTHER, SELFPAY ==
--- NOTE | 2023-07-03 11:46 | MHC.OFFVIS ---
Intake Visit Reasons: EMB follow up Allergies ibuprofen Allergy (Unknown, Verified 05/21/23 08:23) hives mold Allergy (Unknown, Verified 05/21/23 08:23) Hives Penicillins [PENICILLINS] Allergy (Unknown, Verified 05/21/23 08:23) Hives HPI Comments Details: The patient is scheduled tele health visit for follow-up post endometrial biopsy. The pathology showed the following: Benign endometrium with extensive glandular and stromal breakdown, rare fragment of squamous metaplasia, and abundant blood (see comment). Comment: No definitive atypia or carcinoma is identified however, squamous metaplasia can be associated with hyperplasia (with or without atypia) or other neoplasia. Follow-up within 6 months is warranted [facility] Medical History Impaired fasting glucose Colon cancer screening Allergic rhinitis Vitamin D deficiency Pure hypercholesterolemia Obesity (BMI 30-39.9) Surgical History History of colonoscopy (~07/09/21) Family History Father Hypertension Diabetes Mother Medical history unknown Social History Housing: Apartment Alcohol intake: current Alcohol intake frequency: a few times a week Alcohol type: wine and hard liquor Patient Tobacco Use Status: Never used Tobacco e-Cigarette/Vaping Use: Never Used Second Hand Smoke Exposure: Yes service: No Current occupational status: employed Cognitive needs: No Hearing needs: No Vision needs: No Review of Systems Const All systems reviewed & are unremarkable except as noted in HPI and below Reports as per HPI and Reports no additional complaints GI Reports no additional complaints Reports no additional complaints Telehealth Tele[facility] Location of provider rendering services: practice address Location of patient: address on file Patient Identification confirmed using: Name, : Yes Telehealth method: video Patient verbally consented to treatment: Yes Patient verbally consented to billing insurance company: Yes Patient informed of any privacy concerns related to visit: Yes Assessment & Plan Assessment & Plan (1) Abnormal uterine bleeding (AUB): Comment: 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 Discussed with the patient the sensitivity, specificity, false-positive and false-negative rate of EMB in detecting endometrial pathology, recommended hysteroscopy D&C possible polypectomy/myomectomy need an effort to exclude hyperplasia/YOSEF/neoplasia. Instructions given the patient to schedule the procedure and a preop visit. All questions answered, the patient verbalized understanding and agreed with the plan. I spent a total of 20 minutes reviewing the chart, talking to the patient via video and documenting in the medical record. Coding Level of Care Code Tele Est Pt Level 1 (53245) Diagnoses Abnormal uterine bleeding (AUB) N93.9
== END 2023-07-03 14:43 | disposition home or self-care (01) ==
LOC: HO.HWS 11:46
PROVIDERS: PCP Internal Medicine; Visit Provider Obstetrics & Gynecology
DX: N93.9 Abnormal uterine and vaginal bleeding, unspecified (principal)
CPT/HCPCS: 99211

== ENCOUNTER → 2023-07-03 11:46 | Outpatient (BNVA) | payer OTHER, SELFPAY | PROVIDERS: PCP Internal Medicine; Visit Provider Obstetrics & Gynecology ==

== ENCOUNTER 2023-07-09 07:36 | Outpatient (AMB) | payer OTHER, SELFPAY ==
--- NOTE | 2023-07-09 07:38 | A.OFFVIS_ITS ---
Vital Signs 07/09/23 07:42 Height 5 ft 3 in Weight 171 lb 15.369 oz BMI 30.5 BP 110/74 Intake Visit Reasons: pre op Human Resource Adviser Required: No Information Interpreted: non-clinical & clinical Sliver Machine Operator: Sliver Machine Operator Present Accompanied by: Self / Same As Patient Allergies ibuprofen Allergy (Unknown, Verified 07/09/23 07:43) hives mold Allergy (Unknown, Verified 07/09/23 07:43) Hives Penicillins [PENICILLINS] Allergy (Unknown, Verified 07/09/23 07:43) Hives Is last menstrual period known: Yes Last menstrual period: 12/30/19 Post menopausal: No Patient : No Do you need a note to return to daycare/school/sports/work: Yes (for surgery on friday) HPI Comments Details: Presenting to discuss hysteroscopy D&C, possible polypectomy/myomectomy. Last EMB showed the following: Endometrium, biopsy: Benign endometrium with extensive glandular and stromal breakdown, rare fragment of squamous metaplasia, and abundant blood (see comment). Comment: No definitive atypia or carcinoma is identified however, squamous metaplasia can be associated with hyperplasia (with or without atypia) or other neoplasia. Follow- up within 6 months is warranted [facility] Medical History Impaired fasting glucose Colon cancer screening Allergic rhinitis Vitamin D deficiency Pure hypercholesterolemia Obesity (BMI 30-39.9) Surgical History History of colonoscopy (~07/09/21) Family History Father Hypertension Diabetes Mother Medical history unknown Social History Housing: Apartment Alcohol intake: current Alcohol intake frequency: a few times a week Alcohol type: wine and hard liquor Patient Tobacco Use Status: Never used Tobacco e-Cigarette/Vaping Use: Never Used Second Hand Smoke Exposure: Yes service: No Current occupational status: employed Cognitive needs: No Hearing needs: No Vision needs: No Female Reproductive History Menstrual Date of last menstrual period: 12/30/19 Total pregnancies: 2 Full term: 2 Review of Systems Card Reports as per HPI and Reports no additional complaints Resp Reports as per HPI and Reports no additional complaints GI Reports as per HPI and Reports no additional complaints Reports as per HPI Physical Exam Vital Signs: Last Vital Signs BP 110/74 07/09/23 07:42 BMI result Body Mass Index 30.5 Const General: cooperative, healthy appearing and comfortable Resp Effort & Inspection: normal respiratory effort Auscultation: clear to auscultation bilaterally Percussion: percussion normal Cardio Palpation: normal PMI Rate: regular rate Rhythm: regular rhythm Heart sounds: no murmurs and no rubs Peripheral pulses: Peripheral pulses 2+ throughout GI Inspection: Yes normal to inspection Palpation (GI): Soft to palpation, nontender, no guarding, not rigid and No hepatosplenomegaly present Percussion: Yes normal to percussion Auscultation: normal bowel sounds Rectal Exam - Female: deferred Assessment & Plan Assessment & Plan (1) Abnormal uterine bleeding (AUB): Comment: 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 The patient verbalized understanding and signed the consent. Instructions given the patient to stay NPO after midnight the day prior to the procedure and n to take only the specific medication (s) discussed the morning of the surgical procedure and to schedule a 2 week postoperative appointment Coding Level of Care Code Est Pt Level 3 (52033) Diagnoses Abnormal uterine bleeding (AUB) N93.9
[2023-07-09 07:42] VITALS: BP 110/74; BMI 30.5
== END 2023-07-09 08:15 | disposition home or self-care (01) ==
PROVIDERS: PCP Internal Medicine; Visit Provider Obstetrics & Gynecology
DX: N93.9 Abnormal uterine and vaginal bleeding, unspecified (principal)
CPT/HCPCS: 99213

== ENCOUNTER → 2023-07-09 07:36 | Outpatient (BNVA) | payer OTHER, SELFPAY | PROVIDERS: PCP Internal Medicine; Visit Provider Obstetrics & Gynecology | DX: N93.9 Abnormal uterine and vaginal bleeding, unspecified (principal) | CPT/HCPCS: 99212 ==

== ENCOUNTER 2023-07-15 11:28 | Day surgery (SDC) | payer OTHER, SELFPAY ==
[2023-07-15 12:28] LABS: UPreg QC Valid YES; Urine Pregnancy NEGATIVE (NEGATIVE)
[2023-07-15 12:30] VITALS: BMI 30.8
--- NOTE | 2023-07-15 12:32 | MHC.SHP ---
Pre-Procedural Eval Section A - 24 Hr Update-Section A only Date of Service: 07/15/23 The patient is an INPATIENT: No Changes since office visit: No Cold of Flu in the past 2 weeks, No New Medical Problems, No Changes in Medication and No Patient answered all questions The patient has been examined within 24 hours of the surgical procedure. The History & Physical has been completed within 30 days and I have reviewed it.: Yes Section B - Complete if H&P > 30 days Chief Complaint: Abnormal uterine and vaginal bleeding, Allergies: Allergies Allergy/AdvReac Type Severity Reaction Status Date / Time ibuprofen Allergy Unknown hives Verified 07/09/23 07:43 mold Allergy Unknown Hives Verified 07/09/23 07:43 Penicillins [PENICILLINS] Allergy Unknown Hives Verified 07/09/23 07:43 Plan Diagnosis/Plan: Unchanged I have reviewed the history and physical and performed a pertinent physical examination on my patient. No changes have occurred unless specified. Time Spent With Patient Time: Total time managing care of this patient today ____ minutes.
[2023-07-15 12:33] VITALS: BP 142/90; PULSE 90; RESP 15; TEMP 37.1; O2SAT 96
[2023-07-15] MEDS: Lactated Ringers 1,000 ML 100 ML IVCONT (12:42)
--- NOTE | 2023-07-15 12:50 | P.CONAN_ITS ---
Documented by User: Elieen Liriano NP 07/14/23 10:47 HPI - Anesthesia Eval Consult details Narrative: 47yo F for D&C Hysteroscopy,possible myomectomy,possible polypectomy, PMFSH Active Problems Active Problems: All Active Problems Unsatisfactory cervical Papanicolaou smear (Acute) Abnormal uterine bleeding (AUB) (Acute) Well woman exam (Acute) Cervical cancer screening (Acute) Impaired fasting glucose (Acute) Annual physical exam (Acute) Colon cancer screening (Acute) Breast cancer screening (Acute) Allergic rhinitis (Acute) Vitamin D deficiency (Acute) Pure hypercholesterolemia (Acute) Obesity (BMI 30-39.9) (Acute) Past Medical History Medical History Impaired fasting glucose Colon cancer screening Allergic rhinitis Vitamin D deficiency Pure hypercholesterolemia Obesity (BMI 30-39.9) Family History Family History Father Hypertension Diabetes Mother Medical history unknown Family history of problems with anesthesia: No Surgical History Surgical History (Updated 07/15/23 @ 12:43 by Karolina Aceves RN) Hx of cervical polypectomy History of colonoscopy (~07/09/21) History of Problems with Anesthesia: No Social History Social History Housing: Apartment Alcohol intake: current Alcohol intake frequency: a few times a week Alcohol type: wine and hard liquor Patient Tobacco Use Status: Never used Tobacco e-Cigarette/Vaping Use: Never Used Second Hand Smoke Exposure: Yes Use of substances other than those prescribed or required for medical reasons: No Are you DNR?: No Advance Directives: No Advance Directives Information Provided: Yes service: No Current occupational status: employed Cognitive needs: No Hearing needs: No Vision needs: No Meds Allergies Allergy/AdvReac Type Severity Reaction Status Date / Time ibuprofen Allergy Unknown hives Verified 07/15/23 12:43 mold Allergy Unknown Hives Verified 07/15/23 12:43 Penicillins [PENICILLINS] Allergy Unknown Hives Verified 07/15/23 12:43 Home Medications ?Medication ?Instructions ?Recorded ?Confirmed ?Last Taken ?Type cetirizine 10 mg tablet (Zyrtec) 10 mg PO DAILY 02/11/20 07/15/23 Unknown History fluticasone propionate 50 1 spray intranasal DAILY 02/11/20 07/15/23 Unknown History mcg/actuation nasal spray,suspension Exam Pertinent Lab Results Pertinent Lab Results: Laboratory Tests 05/02/23 11:56 WBC 8.3 Hgb 10.4 L Hct 33.4 L Plt Count 515 H Sodium 139 Potassium 4.0 Chloride 104 Carbon Dioxide 25 BUN 7 L Creatinine 0.73 Assessment and Plan Final Anesthetic Review Family History of Problems with Anesthesia: No History of Problems with Anesthesia: No Documented by User: Karolina Villarreal DO 07/15/23 12:57 [facility] Past Medical History Medical History Impaired fasting glucose Colon cancer screening Allergic rhinitis Vitamin D deficiency Pure hypercholesterolemia Obesity (BMI 30-39.9) Family History Family History Father Hypertension Diabetes Mother Medical history unknown Family history of problems with anesthesia: No Surgical History Surgical History (Updated 07/15/23 @ 12:43 by Karolina Aceves RN) Hx of cervical polypectomy History of colonoscopy (~07/09/21) History of Problems with Anesthesia: No Social History Social History Housing: Apartment Alcohol intake: current Alcohol intake frequency: a few times a week Alcohol type: wine and hard liquor Patient Tobacco Use Status: Never used Tobacco e-Cigarette/Vaping Use: Never Used Second Hand Smoke Exposure: Yes Use of substances other than those prescribed or required for medical reasons: No Are you DNR?: No Advance Directives: No Advance Directives Information Provided: Yes service: No Current occupational status: employed Cognitive needs: No Hearing needs: No Vision needs: No Meds Allergies Allergy/AdvReac Type Severity Reaction Status Date / Time ibuprofen Allergy Unknown hives Verified 07/15/23 12:43 mold Allergy Unknown Hives Verified 07/15/23 12:43 Penicillins [PENICILLINS] Allergy Unknown Hives Verified 07/15/23 12:43 Home Medications ?Medication ?Instructions ?Recorded ?Confirmed ?Last Taken ?Type cetirizine 10 mg tablet (Zyrtec) 10 mg PO DAILY 02/11/20 07/15/23 Unknown History fluticasone propionate 50 1 spray intranasal DAILY 02/11/20 07/15/23 Unknown History mcg/actuation nasal spray,suspension Exam Exam Date and Time: July 2023 124 Height,Weight and Vital Signs: Height 5 ft 3.75 in Weight 80.739 kg Vital Signs Temperature 98.7 F 07/15/23 12:33 Pulse Rate 90 07/15/23 12:33 Respiratory Rate 15 07/15/23 12:33 Blood Pressure 142/90 H 07/15/23 12:33 Pulse Oximetry 96 07/15/23 12:33 Oxygen Delivery Method Room Air 07/15/23 12:33 Temperature 98.7 F 07/15/23 12:33 Pulse Rate 90 07/15/23 12:33 Respiratory Rate 15 07/15/23 12:33 Blood Pressure 142/90 H 07/15/23 12:33 Pulse Oximetry 96 07/15/23 12:33 Oxygen Delivery Method Room Air 07/15/23 12:33 Airway Mallampati Class: II TM Dist: >3cm Neck ROM: Full Loose/Missing/Broken Teeth: Yes (multiple broken molars) Heart: S1S2 Lungs: CTAB Assessment and Plan Assessment Anesthesia Assessment: Anesthesia Plan Discussed and Chart Reviewed Final Anesthetic Review Family History of Problems with Anesthesia: No History of Problems with Anesthesia: No NPO: Yes ASA Class: II Final Preanesthetic Review: No Changes in Pt Med Stat, Meds/Allgs Chart Reviewed, Consent Obtained/Reviewed and Anes Risks/Benef Reviewed Patient Risk: Low Procedure Risk: Low Anesthetic Plan Anesthetic Plan: GA and Agree w/ Assess. and Plan Disposition: Standard PACU
--- NOTE | 2023-07-15 13:46 | PM.OP ---
Brief Operative Note Date of Service: 07/15/23 Pre-op diagnosis: Abnormal uterine bleeding with squamous metaplasia Post-op diagnosis: same (Endometrial polyp) Procedure: Hysteroscopy D&C, Polypectomy Surgeon: Stalin Gomez MD Anesthesia: GLMA Was an Supervisor Order Takers used for this Procedure?: No Estimated blood loss (mL): 0 Pathology: other (Endometrial Scrapping. Polyp) Condition: stable Disposition: PACU
--- NOTE | 2023-07-15 13:47 | W.PM.OPN ---
Operative Note Operative Note Date of Service: 07/15/23 Narrative: Preop Diagnosis: Abnormal uterine bleeding with squamous metaplasia Operation: Diagnostic Hysteroscopy, Dilataion & Curettage with polypectomy Post Op Diagnosis: Endometrial polyp QBL: Minimal Anesthesia: GLMA Surgeon: Stalin Gomez MD Agile Java Developer: None Complication: None Pathology: Endometrial Scrapings Procedure: The patient was put in the dorsal lithotomy position, scrubbed, and draped in the usual manner. A sterile speculum was inserted in the patient's vagina. The anterior lip of the cervix was grasped with a single tooth tenaculum. The cervix was dilated up to 5 mm, then the scope was inserted in the patient's uterus. Inspection revealed endometrial polyp. Using reach MyoSure device polypectomy was done with no complication. The scope was taken out of the uterine cavity , then sharp curetting was carried on with no complications. At the end of the procedure, all instruments were taken out of the patient uterine and vaginal cavity. The single tooth tenaculum was removed and homeostasis was assured using pressure. The patient tolerated the procedure well and was transferred to the PACU in a stable condition.
[2023-07-15 13:55] VITALS: BP 121/79; PULSE 93; RESP 16; TEMP 36.6; O2SAT 99
[2023-07-15 14:00] VITALS: BP 125/73; PULSE 68; RESP 16; O2SAT 100
[2023-07-15 14:05] VITALS: BP 127/72; PULSE 70; RESP 16; O2SAT 95
[2023-07-15 14:10] VITALS: BP 118/65; PULSE 69; RESP 16; O2SAT 93
[2023-07-15] MEDS: oxyCODONE HCl Immed Release 5 MG TABLET PO (14:18)
[2023-07-15 14:25] VITALS: BP 109/58; PULSE 69; RESP 16; TEMP 36.6; O2SAT 96
--- NOTE | 2023-07-15 14:51 | HO.INF ---
DR. BRADLEY ASSESSED FOR NAUSEA. PATIENT REFUSED OFFER OF ZOFRAN AT THIS TIME. PT STATES FEELING BETTER. PATIENT BEING DC'D HOME.
== END 2023-07-15 14:53 | disposition home or self-care (01) ==
PROVIDERS: Nurse Practitioner; PCP Internal Medicine; Visit Provider Obstetrics & Gynecology
PROC: 0UDB8ZZ Extraction of Endometrium, Via Natural or Artificial Opening Endoscopic (ICD-10-PCS; CPT 58558; principal; 2023-07-15 13:20)
DX: N93.9 Abnormal uterine and vaginal bleeding, unspecified (principal); N84.0 Polyp of corpus uteri; R73.01 Impaired fasting glucose; J30.9 Allergic rhinitis, unspecified; E78.00 Pure hypercholesterolemia, unspecified; E55.9 Vitamin D deficiency, unspecified; E66.9 Obesity, unspecified; Z68.30 Body mass index [BMI] 30.0-30.9, adult; Z88.0 Allergy status to penicillin; Z88.8 Allergy status to other drugs, medicaments and biological substances
CPT/HCPCS: 58558; 81025; 88305; J1100; J2405; J2704; J3010

== ENCOUNTER → 2023-07-15 11:28 | Outpatient (BNV) | payer OTHER, SELFPAY | PROVIDERS: PCP Internal Medicine; Visit Provider Obstetrics & Gynecology | DX: N84.0 Polyp of corpus uteri (principal); N93.9 Abnormal uterine and vaginal bleeding, unspecified | CPT/HCPCS: 58558 ==

== ENCOUNTER 2023-07-30 13:06 | Outpatient (AMB) | payer OTHER, SELFPAY ==
--- NOTE | 2023-07-30 13:10 | A.OFFVIS_ITS ---
Vital Signs 07/30/23 13:13 Height 5 ft 3 in Weight 173 lb BMI 30.6 BP 120/74 Intake Visit Reasons: post op Allergies ibuprofen Allergy (Unknown, Verified 07/15/23 12:43) hives mold Allergy (Unknown, Verified 07/15/23 12:43) Hives Penicillins [PENICILLINS] Allergy (Unknown, Verified 07/15/23 12:43) Hives HPI Comments Details: The patient is presenting post hysteroscopy D&C no complaints minimal vaginal bleeding no feverishness chills or abdominal pain. The pathology showed the following: A. Endometrium, polypectomy: - Fragments of endometrial polyp; no atypia identified. - Prominent bundles of haphazardly arranged smooth muscle. See comment. B. Endometrium, curettage: Disordered proliferative endometrium; no atypia or hyperplasia identified. Comment: The smooth muscle in part A may represent a leiomyoma; no features of malignancy are seen The following workup was done.: H&H= 10.4/33.4 TSH, prolactin, hCG, GC and chlamydia were negative. FSH/LH in the premenopausal range Endometrial biopsy pathology showed the following: Endometrium, biopsy: Benign endometrium with extensive glandular and stromal breakdown, rare fragment of squamous metaplasia, and abundant blood (see comment). Comment: No definitive atypia or carcinoma is identified however, squamous metaplasia can be associated with hyperplasia (with or without atypia) or other neoplasia. Follow- up within 6 months is warranted. Co testing was done was negative. Mammogram was BI-RADS 1 Pelvic ultrasound showed the following: Uterus: The uterus is anteverted and measures 8.5 x 5.6 x 6.0 cm. There are multiple fibroids includin.3 x 2.1 x 2.4 cm anterior subserosal fibroid in the fundus. 4.6 x 5.3 x 4.9 cm exophytic fibroid off the fundus on the right. 1.3 x 1.1 x 1.5 cm partly calcified subserosal fundal fibroid. 1.7 x 1.6 x 1.9 cm posterior intramural fibroid in the body the uterus. The endometrial thickness is 1.7 cm. Upper limits of normal is 1.6 cm. Adnexa: Both ovaries are visualized. There is normal color flow to the adnexa. There is no ovarian torsion. There is no pelvic ascites or fluid collection. Right ovary measures 3.0 x 1.7 x 1.8 cm. Volume 4.9 cm Left ovary measures 2.0 x 2.6 x 1.8 cm. Volume 7.4 mL. There is a small amount of free fluid within the left adnexa. [facility] Medical History Impaired fasting glucose Colon cancer screening Allergic rhinitis Vitamin D deficiency Pure hypercholesterolemia Obesity (BMI 30-39.9) Surgical History Hx of cervical polypectomy History of colonoscopy (~07/09/21) Family History Father Hypertension Diabetes Mother Medical history unknown Social History Housing: Apartment Alcohol intake: current Alcohol intake frequency: a few times a week Alcohol type: wine and hard liquor Patient Tobacco Use Status: Never used Tobacco e-Cigarette/Vaping Use: Never Used Second Hand Smoke Exposure: Yes service: No Current occupational status: employed Cognitive needs: No Hearing needs: No Vision needs: No Review of Systems Const All systems reviewed & are unremarkable except as noted in HPI and below Reports as per HPI and Reports no additional complaints GI Reports no additional complaints Reports no additional complaints Physical Exam Vital Signs: Last Vital Signs BP 120/74 07/30/23 13:13 BMI result Body Mass Index 30.6 Assessment & Plan Assessment & Plan (1) Abnormal uterine bleeding (AUB): Comment: Status post polypectomy 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 All pros, cons, risks and benefits if each option was discussed with the patient and the patient decided to go ahead with Mirena IUD so a more detailed discussion about it was conducted including mechanism of action, risks (uterine perforation, infection, injury to bladder, bowel, displacement, and others) benefits (hypo menorrhea, amenorrhea, ...). GC/CT were taken and the patient was instructed to schedule Mirena IUD insertion on day 1-5 of next cycle, 3 months repeat EMB . All questions answered, the patient verbalized understanding (2) Uterine myoma: Code(s): D25.9 - Leiomyoma of uterus, unspecified Category: Medical Plan: Discussed with the patient the findings on pelvic ultrasound & the risk of myosarcoma; discussed with the patient the options of treatment including expectant management versus hysterectomy; the pros and cons, risks benefits of e ach approach were discussed with the patient including the fact that in cases of myosarcoma, surgical treatment can lead to early diagnosis and positively affects the prognosis; after further discussion, the patient decided to proceed with expectant management. Will repeat pelvic ultrasound periodically. Instructions given to patient to call in case any of the following occurs: pressure symptoms, abnormal uterine bleeding, pelvic pain; and to schedule six- month ultrasound follow-up appointment . All questions answered, the patient verbalized understanding and agreed with the plan . Orders: Orders US pelvic and transvaginal 6 Months D25.9 - Leiomyoma of uterus, unspecified Coding Level of Care Code Est Pt Level 3 (62752) Diagnoses Abnormal uterine bleeding (AUB) N93.9 Uterine myoma D25.9
[2023-07-30 13:13] VITALS: BP 120/74; BMI 30.6
== END 2023-07-30 13:43 | disposition home or self-care (01) ==
LOC: HO.HWS 13:06
PROVIDERS: PCP Internal Medicine; Visit Provider Obstetrics & Gynecology
DX: N93.9 Abnormal uterine and vaginal bleeding, unspecified (principal); D25.9 Leiomyoma of uterus, unspecified
CPT/HCPCS: 99213

== ENCOUNTER → 2023-07-30 13:06 | Outpatient (BNVA) | payer OTHER, SELFPAY | PROVIDERS: PCP Internal Medicine; Visit Provider Obstetrics & Gynecology | DX: N93.9 Abnormal uterine and vaginal bleeding, unspecified (principal); D25.9 Leiomyoma of uterus, unspecified | CPT/HCPCS: 99212 ==

== ENCOUNTER 2023-08-14 08:16 | Outpatient (AMB) | payer OTHER, SELFPAY ==
--- NOTE | 2023-08-14 08:26 | MHC.OFFWIV ---
Intake Vital Signs 08/14/23 08:30 Height 5 ft 3 in Weight 175 lb BMI 31.0 BP 122/80 Blood Pressure Location Rt brachial Position Sitting Pulse 112 H Pulse Source Pulse Oximeter Temp 100 F Temp Source Oral Pulse Oximetry (%) 98 Intake Visit Reasons: EP rash 3 weeks Intake Note: pt is here for rash for 3 weeks on breast, very itchy Patient Tobacco Use Status: Never used Tobacco Allergies ibuprofen Allergy (Unknown, Verified 08/14/23 08:30) hives mold Allergy (Unknown, Verified 08/14/23 08:30) Hives Penicillins [PENICILLINS] Allergy (Unknown, Verified 08/14/23 08:30) Hives Do you need a note to return to daycare/school/sports/work: Yes HPI HPI Comments History of Present Illness Details Patient is a 47-year-old female complaining of 3 weeks of a rash on her left upper arm and both breasts. She states it is itchy. She states she had a subjective fever yesterday so she went home took some Tylenol and today she feels better. She had a reduced appetite yesterday because she was not feeling good and did not drink any water all day. She denies any new bras or other clothing, [place] or [place] but she did state she was in [place] few weeks ago hiking. [facility] Medical History Impaired fasting glucose Colon cancer screening Allergic rhinitis Vitamin D deficiency Pure hypercholesterolemia Obesity (BMI 30-39.9) Surgical History Hx of cervical polypectomy History of colonoscopy (~07/09/21) Family History Father Hypertension Diabetes Mother Medical history unknown Social History Housing: Apartment Alcohol intake: current Alcohol intake frequency: a few times a week Alcohol type: wine and hard liquor Patient Tobacco Use Status: Never used Tobacco e-Cigarette/Vaping Use: Never Used Second Hand Smoke Exposure: Yes service: No Current occupational status: employed Cognitive needs: No Hearing needs: No Vision needs: No Review of Systems Const All systems reviewed & are unremarkable except as noted in HPI and below Physical Exam Vital Signs: Last Vital Signs Temp 100 F 08/14/23 08:30 Pulse 112 H 08/14/23 08:30 BP 122/80 08/14/23 08:30 Pulse Ox 98 08/14/23 08:30 BMI result Body Mass Index 31.0 Const General: cooperative, healthy appearing, comfortable, no acute distress and well developed Orientation/consciousness: patient oriented x3 Limitations: no limitations Eyes General: appearance normal, both eyes and all related structures Resp Effort & Inspection: normal respiratory effort and able to speak in complete sentences Skin Other: Macular papular rash clusters crusted over on bilateral breasts and left upper arm, no ecchymosis, warmth or erythema or other signs of infection noted Neuro General: patient oriented x3 Assessment & Plan Assessment & Plan (1) Contact dermatitis: Code(s): L25.9 - Unspecified contact dermatitis, unspecified cause Qualifiers: Contact dermatitis type: irritant Contact dermatitis trigger: other trigger Qualified Code(s): L24.89 - Irritant contact dermatitis due to other agents Plan: Unclear what caused this rash, since 6 day Pred taper it to pharmacy, if no resolution, patient has appt with her primary care doctor on August [address] Plan see above Medications: New prednisone see taper instructions 10 mg PO DIRECTED 21 ea 0RF Coding Level of Care Code Est Pt Level 3 (28402) Diagnoses Irritant contact dermatitis due to other agents L24.89 Contact dermatitis type: irritant Contact dermatitis trigger: other trigger
[2023-08-14 08:30] VITALS: BP 122/80; PULSE 112; TEMP 37.7; O2SAT 98; BMI 31.0
== END 2023-08-14 10:15 | disposition home or self-care (01) ==
PROVIDERS: PCP Internal Medicine; Visit Provider Physician Assistant
DX: L24.89 Irritant contact dermatitis due to other agents (principal)
CPT/HCPCS: 99213

== ENCOUNTER 2023-08-19 10:26 | Outpatient (AMB) | payer OTHER, SELFPAY ==
--- NOTE | 2023-08-19 10:32 | MHC.OFFVIS ---
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 Information Interpreted: non-clinical & clinical Registered Nurse Bone Marrow Transplant: Registered Nurse Bone Marrow Transplant Present (Radha DAVIDSON) Accompanied by: Self / Same As Patient Allergies ibuprofen Allergy (Unknown, Verified 08/19/23 10:39) hives mold Allergy (Unknown, Verified 08/19/23 10:39) Hives Penicillins [PENICILLINS] Allergy (Unknown, Verified 08/19/23 10:39) Hives Is last menstrual period known: Yes Last menstrual period: 08/18/23 HPI Comments Details: Here for Mirena IUD insertion [facility] Medical History Impaired fasting glucose Colon cancer screening Allergic rhinitis Vitamin D deficiency Pure hypercholesterolemia Obesity (BMI 30-39.9) Surgical History Hx of cervical polypectomy History of colonoscopy (~07/09/21) Family History Father Hypertension Diabetes Mother Medical history unknown Social History Housing: Apartment Alcohol intake: current Alcohol intake frequency: a few times a week Alcohol type: wine and hard liquor Patient Tobacco Use Status: Never used Tobacco e-Cigarette/Vaping Use: Never Used Second Hand Smoke Exposure: Yes service: No Current occupational status: employed Cognitive needs: No Hearing needs: No Vision needs: No Female Reproductive History Menstrual Date of last menstrual period: 08/18/23 Office Procedures IUD Insert/Removal Details Details: The patient is presenting for Mirena IUD insertion Urine test was done in the office and was negative; All the contraindications were excluded. The following possible complications were discussed with the patient: Intrauterine , Ectopic , Sepsis, Pelvic Infection, Irregular Bleeding and Amenorrhea, Perforation, Expulsion, Ovarian Cysts, Breast Cancer, The following adverse effects were discussed with the patient: alteration of menstrual bleeding pattern, including: unscheduled uterine bleeding decreased uterine bleeding increased scheduled uterine bleeding female genital tract bleeding ,amenorrhea , genital discharge , vulvovaginitis , breast pain , benign ovarian cyst and associated complications , dysmenorrhea , Gastrointestinal disorders abdominal/pelvic pain, headache/migraine , back pain , acne , depression Alternative options were discussed with the patient including but not limited: control pills, patch, NuvaRing, Depo-medroxyprogesterone acetate, Nexplanon, copper IUD, sterilization, vasectomy, others The procedure was explained in detail to patient , at the end patient signed the informed consent obtained. A no touch technique was used throughout the procedure. A speculum was placed into vagina and cervix was cleaned with betadine). A tenaculum was placed. A plastic sound was advanced through the external and internal os until it reached the fundus of the uterus, the depth was 8 cm. The sound was then withdrawn. The IUD was loaded in a sterile manner and advanced into position. The string was visualized and cut to 3 cm. Tenaculum site hemostatic. All instruments removed from vagina. Patient tolerated the procedure well. NO complications were noted. Patient was instructed to call for fever over 100.4, significant pain unrelieved by Motrin, IUD expulsion, heavy bleeding, or abnormal discharge. In addition, the following clinical considerations were discussed with the patient to call for removal: A stroke or heart attack ,Very severe or migraine headaches ,Unexplained fever ,Yellowing of the skin or whites of the eyes, as these may be signs of serious liver problems , or suspected , Pelvic pain or pain during sex ,HIV positive seroconversion in herself or her partner , Possible exposure to sexually transmitted infections Unusual vaginal discharge or genital sores , severe vaginal bleeding or bleeding that lasts a long time, or if she misses a menstrual period, Inability to feel Mirena's threads Counseled the patient that the IUD does not protect against STI's, recommended use of condoms for the first 7 days post insertion and explained to the patient that condoms are recommended for patients at risk for sexually transmitted infections. Informed the patient that Mirena IUD is FDA approved for 8 years for contraception for 5 years for the treatment of heavy menses/squamous metaplasia Instructed the patient to schedule a Follow up appointment in 4 to 6 weeks following insertion. This note was generated with a voice recognition program. Some errors may have been overlooked during the review of this note. Sometimes these errors may affect the content or meaning of a given sentence. 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 1 device intrauterine ea Results AMB Test Urine AMB Test Urine Negative Last Edit by Radha Lyles CMA on 08/19/23 10:46 Assessment & Plan Assessment & Plan (1) Abnormal uterine bleeding (AUB): Comment: Status post polypectomy 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 pathology Code(s): N93.9 - Abnormal uterine and vaginal bleeding, unspecified Category: Medical Plan: Mirena IUD inserted, see procedure note Orders: Orders AMB HCG Urine Test Today Z32.02 - Encounter for test, result negative AMB IUD Insertion/Removal - Practice Supplied Today N93.9 - Abnormal uterine and vaginal bleeding, unspecified Medications: New Mirena (levonorgestrel) 1 device intrauterine ONCE 1 ea 0RF IUD insertion NS N93.9 - Abnormal uterine and vaginal bleeding, unspecified Coding Level of Care Code Procedure Only Diagnoses Abnormal uterine bleeding (AUB) N93.9 CPT Codes Details - CPT: 70859-HLN Insertion ([id number])
[2023-08-19 10:38] VITALS: BP 132/86; BMI 30.8
== END 2023-08-19 10:49 | disposition home or self-care (01) ==
LOC: HO.HWS 10:26
PROVIDERS: PCP Internal Medicine; Visit Provider Obstetrics & Gynecology
DX: Z30.430 Encounter for insertion of intrauterine contraceptive device (principal); N93.9 Abnormal uterine and vaginal bleeding, unspecified; Z32.02 Encounter for pregnancy test, result negative
CPT/HCPCS: 58300

== ENCOUNTER → 2023-08-19 10:26 | Outpatient (BNVA) | payer OTHER, SELFPAY | PROVIDERS: PCP Internal Medicine; Visit Provider Obstetrics & Gynecology | DX: Z30.430 Encounter for insertion of intrauterine contraceptive device (principal) | CPT/HCPCS: 58300; 81025; J7298 ==

== ENCOUNTER 2023-08-26 09:44 | Outpatient (AMB) | payer OTHER, SELFPAY ==
[2023-08-26 09:45] VITALS: BP 144/90; PULSE 98; O2SAT 97; BMI 31.4
--- NOTE | 2023-08-26 09:45 | MHC.PC.OV ---
Vital Signs 08/26/23 09:45 Height 5 ft 3 in Weight 177 lb 0.4 oz BMI 31.4 BP 144/90 H Blood Pressure Location Lt brachial Position Sitting Pulse 98 Pulse Source Pulse Oximeter Pulse Oximetry (%) 97 Oxygen Delivery Method Room Air Intake Visit Reasons: hyperlipidemia, IFG, elevated BP Allergies ibuprofen Allergy (Unknown, Verified 08/26/23 10:54) hives mold Allergy (Unknown, Verified 08/26/23 10:54) Hives Penicillins [PENICILLINS] Allergy (Unknown, Verified 08/26/23 10:54) Hives Medication List - Last Reconciled 08/26/23 by Ian La MD cetirizine (Zyrtec) 10 mg PO DAILY fluticasone propionate 50 mcg/actuation 1 spray intranasal DAILY hydroxyzine HCl 25 mg PO TID PRN 30 days Tobacco use date assessed: 08/26/23 Dental Screening Dental Screen Date: 08/26/23 Did you have a dental visit in the last 12 months?: Yes Did you have a dental problem in the last 6 months where you did not have access to dental care?: No Was dental information given to patient?: Patient has dentist HPI hyperlipidemia, IFG, elevated BP HPI Details Patient comes in today for her follow up visit States that she has been breaking out in an itchy rash for over a month now She recalls that she was experiencing some itching but did not see any rash when her symptoms started almost 2 months ago, before her trip to [facility] States that she then went to [facility] and also went on a hiking trip in [place] but did not recall coming into contact with anything that could have caused her to break out in the rash that she has at this time States that the rash started appearing after she returned from her trip and they were mostly localized to her breasts bilaterally (but not under the breast/skin folds) and also over her shoulders and arm areas on both sides She went to the walk-in clinic a couple of weeks ago for the rash and was started on oral Prednisone taper, which she states cleared up the rash on her shoulders and her arms but the rash over her breasts did not improve much States that she has tried using some OTC meds including Calamine lotion, which do not help much She denies any headaches or dizziness; denies any fever or sore throat She adds that she tested positive for COVID a couple of months ago but her symptoms were mostly mild and have since cleared up She is currently having increased allergy symptoms (cough/congestion/sneezing) and takes Cetirizine 10 mg QD for her allergies Denies any chest pains, no increased SOB No nausea/vomiting, no abdominal pain No change in bowel habits noted She was not able to get her follow up labs done prior to her appointment today - forgot; but states that she can go and get them done tomorrow morning She also had a hysteroscopy, D & C and cervical polypectomy done with Dr. Gomez last month - pathology fortunately showed no malignancy She had an IUD (Mirena) inserted last week to try to control her heavy menstrual bleeding and for contraception as well [facility] Medical History (Updated 08/26/23 @ 10:19 by Ian La MD) Impaired fasting glucose Colon cancer screening Allergic rhinitis Vitamin D deficiency Pure hypercholesterolemia Obesity (BMI 30-39.9) Surgical History (Updated 08/26/23 @ 10:58 by Ian La MD) Hx of cervical polypectomy History of colonoscopy (~07/09/21) Family History Father Hypertension Diabetes Mother Medical history unknown Social History Housing: Apartment Alcohol intake: current Alcohol intake frequency: a few times a week Alcohol type: wine and hard liquor Patient Tobacco Use Status: Never used Tobacco e-Cigarette/Vaping Use: Never Used Second Hand Smoke Exposure: Yes service: No Current occupational status: employed Cognitive needs: No Hearing needs: No Vision needs: No Questionnaire PHQ-9 Over the last 2 weeks, how often have you been bothered by any of the following problems? 1. Little interest or pleasure in doing things: not at all 2. Feeling down, depressed, or hopeless: not at all 3. Trouble falling or staying asleep, or sleeping too much: not at all 4. Feeling tired or having little energy: not at all 5. Poor appetite or overeating: not at all 6. Feeling bad about yourself - or that you are a failure or have let yourself or your family down: not at all 7. Trouble concentrating on things, such as reading the newspaper or watching television: not at all 8. Moving or speaking so slowly that other people could have noticed. Or the opposite - being so fidgety or restless that you have been moving around a lot more than usual: not at all 9. Thoughts that you would be better off or of hurting yourself in some way: not at all Total score: 0 Depression Screening Interpretation: Negative Depression Screening Done: Yes [id number] - PHQ-9 Billing: Yes Source: Developed by Drs. Taurus Banks, Pam Spencer, Eddie Briseno and colleagues, with an educational william from [employer]. Thrive Questionnaire Date Thrive assessed: 08/26/23 I am a: Patient What is your living situation today?: I have a steady place to live Within the past 12 months, did the food you bought not last and you didn't have the money to get more?: Never true Within the past 12 months, did you worry whether your food would run out before you got money to buy more?: Never true Do you have trouble paying for medicines?: No Do you have trouble getting transportation to medical appointments?: No Do you have trouble paying your heating and electricity bill?: No Do you have trouble taking care of your child, family member or friend?: No Do you have trouble with day-to-day activities such as bathing, preparing meals, shopping, managing finances, etc.?: No Are you currently unemployed and looking for a job?: No Are you interested in more education?: No Please select the resources that you would like help with: None Currently or been in a relationship where the following occur: no concerns reported THRIVE Score: 0 AUDIT C Alcohol Use Questionnaire (AUDIT-C) 1. How often do you have a drink containing alcohol?: 2-3 times a week 2. How many drinks containing alcohol do you have on a typical day when you are drinking?: 1 or 2 3. How often do you have six or more drinks on one occasion?: Never Total Score: 3 Score Reviewed/Action Taken: Yes KARLA-7 AMB Questionnaire KARLA-7 Date KARLA - 7 assessed: 08/26/23 Feeling nervous, anxious, or on edge: 0 = Not at all Not being able to stop or control worryin = Not at all Worrying too much about different things: 0 = Not at all Trouble relaxin = Not at all Being so restless that it is hard to sit still: 0 = Not at all Becoming easily annoyed or irritable: 0 = Not at all Feeling afraid as if something awful might happen: 0 = Not at all Total KARLA-7 score (0-4 normal; 5-9 mild; 10-14 moderate; 15-21 severe): 0 Source: Developed by Drs. Taurus Banks, Pam Spencer, Eddie Briseno and colleagues, with an educational william from [employer]. Review of Systems Const Denies chills, Denies fatigue, Denies fever(s) and Denies headache(s) ENT Denies dysphagia, Denies dizziness, Denies otalgia, Denies headache(s), Denies neck pain, Denies odynophagia and Denies sore throat Card Denies chest pain, Denies irregular heart rhythm, Denies palpitations and Denies dyspnea Resp Denies cough, Denies dyspnea and Denies wheezing GI Denies abdominal pain, Denies constipation, Denies dysphagia, Denies heartburn, Denies diarrhea, Denies nausea, Denies odynophagia and Denies vomiting Denies urinary frequency, Denies dysuria, Denies urinary incontinence and Denies urinary urgency Musc Denies back pain, Denies arthralgias and Denies neck pain Skin/Breast Details: (+) recurrent itchy rash over both breasts and a few similar rash on both upper arms Neuro Denies dizziness, Denies headache(s) and Denies paresthesias Psych Denies anxiety and Denies depression Endo Denies fatigue and Denies palpitations Krishna/Lymph Denies easy bruising Aller/Immun Denies wheezing Physical exam (Primary Care) Vital Signs: Last Vital Signs Pulse 98 08/26/23 09:45 BP 144/90 H 08/26/23 09:45 Pulse Ox 97 08/26/23 09:45 Oxygen Delivery Method Room Air 08/26/23 09:45 BMI result Body Mass Index 31.4 Tobacco/Smoking Status: Tobacco use Status Tobacco use date assessed 08/26/23 08/26/23 09:46 Patient Tobacco Use Status Never used Tobacco 08/26/23 09:46 e-Cigarette/Vaping Use Never Used 08/26/23 09:46 PHQ-9: PHQ-9 Score PHQ-9: Total score 0 08/26/23 09:46 Depression Screening Interpretation: Negative Thrive Assessment: Date of Thrive Assessment Date Thrive assessed 08/26/23 08/26/23 09:50 Currently or been in a relationship where the following occur: no concerns reported Const General: no acute distress and alert HENMT Ears: TM's normal bilaterally and EAC's normal Throat: Yes posterior oropharynx normal and Yes tonsils normal (no TP congestion) Neck Neck: Yes no lymphadenopathy and Yes supple Thyroid: Thyroid normal Resp Auscultation: clear to auscultation bilaterally, no rales and no wheezes Cardio Rate: regular rate Rhythm: regular rhythm Heart sounds: no murmurs GI Palpation (GI): Soft to palpation and nontender Auscultation: normal bowel sounds General: Yes no CVA tenderness Back/Spine/Pelvis Back: no CVA tenderness Thoracic/Lumbar Spine: thoracic and lumbar spine normal to inspection Skin Other: (+) patchy erythematous rash over both breasts - rash appear more concentrated close to the areolar areas of the breasts Extrem General: Yes no clubbing, cyanosis or edema Results Reviewed Results Reviewed: Laboratory Tests 05/02/23 05/02/23 11:51 11:56 WBC 8.3 Hgb 10.4 L Hct 33.4 L Plt Count 515 H Sodium 139 Potassium 4.0 Creatinine 0.73 Estimated GFR > 60 Fasting Glucose 89 Hemoglobin A1c % 6.0 Calcium 9.5 AST 17 ALT 16 Triglycerides 145 Cholesterol 232 H LDL Cholesterol, Calc 160 H HDL Cholesterol 43 25-OH Vitamin D Total 18.5 L TSH 1.05 FSH 11.0 Luteinizing Hormone 15.2 Prolactin 7.8 Ur Specific [place] <= 1.005 Urine Protein Negative Urine Glucose (UA) Negative Urine Blood Negative Urine Nitrite Negative Ur Leukocyte Esterase Negative Assessment and Plan Assessment & Plan (1) Rash: Code(s): R21 - Rash and other nonspecific skin eruption Plan: Unclear etiology at present; advised that these could be due to allergic reaction or may also possibly be a sequelae of her recent COVID infection Have advised patient that she can continue taking Cetirizine 10 mg QD for now As she reports (+) itching associated with the rash, will start her on Hydroxyzine 25 mg TID PRN but cautioned her about potential drowsiness from the Rx Will send her for some additional labs MASSIEL for further evaluation (2) Pure hypercholesterolemia: Code(s): E78.00 - Pure hypercholesterolemia, unspecified Plan: Reinforced low cholesterol diet She is advised that her cholesterol levels on her recent labs done in May 2023 are still elevated and have not improved at all from her previous numbers a couple of years ago Patient still prefers to continue working on her diet for now and avoid taking cholesterol Rx as much as possible Will have her recheck her labs and fasting lipids MASSIEL for follow up (3) Impaired fasting glucose: Code(s): R73.01 - Impaired fasting glucose Plan: Reminded patient also that her fasting serum glucose level have also been steadily rising over the years and her HgbA1c was at 6.0% back in May 2023; FBS was normal though at 89 mg/dl at the time Patient has been encouraged to start losing weight, exercise regularly and watch her diet (low calorie diet) to help lower her risks of progression to diabetes Will recheck her FBS and also check her HgbA1c again in 6 months for follow up (4) Vitamin D deficiency: Code(s): E55.9 - Vitamin D deficiency, unspecified Plan: She is advised that her vItamin D level was still low on her labs done in May 2023 Continue OTC Vitamin D3 1000 units QD (5) Allergic rhinitis: Code(s): J30.9 - Allergic rhinitis, unspecified Qualifiers: Allergic rhinitis trigger: unspecified Allergic rhinitis seasonality: seasonal Qualified Code(s): J30.2 - Other seasonal allergic rhinitis Plan: Continue Cetirizine 10 mg QD and Fluticasone 50 mcg nasal spray QD PRN (6) Obesity (BMI 30-39.9): Code(s): E66.9 - Obesity, unspecified Plan: Reinforced diet/exercise as tolerated/lose weight Plan To return in 6 months for her annual physical examination Orders: Orders YESSY Reflex Titer and Pattern Today R21 - Rash and other nonspecific skin eruption Rheumatoid Factor Today R21 - Rash and other nonspecific skin eruption Complete Blood Count Auto Diff Today D64.9 - Anemia, unspecified, R21 - Rash and other nonspecific skin eruption Complete Blood Count Auto Diff 6 Months D64.9 - Anemia, unspecified Hemoglobin A1c 6 Months R73.01 - Impaired fasting glucose UA CC w/rflx Micro + Cult 6 Months R30.0 - Dysuria Vitamin D 25-OH Total 6 Months E55.9 - Vitamin D deficiency, unspecified C Reactive Protein Today R21 - Rash and other nonspecific skin eruption Erythrocyte Sedimentation Rate Today R21 - Rash and other nonspecific skin eruption Lyme IgG/IgM w/reflex to WB Today R21 - Rash and other nonspecific skin eruption Comprehensive [place]. Panel Fast 6 Months E78.00 - Pure hypercholesterolemia, unspecified Lipid Panel 6 Months E78.00 - Pure hypercholesterolemia, unspecified TSH reflex Free T4 6 Months E78.00 - Pure hypercholesterolemia, unspecified Medications: New hydroxyzine HCl 25 mg PO TID 30 days PRN 90 tabs 0RF rash/itching Coding Level of Care Code Est Pt Level 4 (97731) Diagnoses Rash R21 Pure hypercholesterolemia E78.00 Impaired fasting glucose R73.01 Vitamin D deficiency E55.9 Seasonal allergic rhinitis, unspecified trigger J30.2 Allergic rhinitis trigger: unspecified Allergic rhinitis seasonality: seasonal Obesity (BMI 30-39.9) E66.9
== END 2023-08-26 10:32 | disposition home or self-care (01) ==
PROVIDERS: PCP Internal Medicine; Visit Provider Internal Medicine
DX: R21 Rash and other nonspecific skin eruption (principal); E78.00 Pure hypercholesterolemia, unspecified; R73.01 Impaired fasting glucose; E55.9 Vitamin D deficiency, unspecified; J30.2 Other seasonal allergic rhinitis
CPT/HCPCS: 99214

== ENCOUNTER 2023-08-27 09:50 | Outpatient (REF) | payer OTHER, SELFPAY ==
[2023-08-27 10:03] LABS: MANUAL DIFF FLAG NO
[2023-08-27 10:20] LABS: Basophils Absolute Auto 0.1 X10*3/uL (0.0-0.2); Basophils Percent Auto 0.6 % (0-2); Eosinophils Absolute Auto 0.3 X10*3/uL (0.0-0.4); Eosinophils Percent Auto 3.5 % (0-4); Hematocrit 38.2 % (37.0-47.0); Imm Gran Abs Auto 0.04 X10*3/uL (0.00-0.03); Imm Gran Pct Auto 0.5 % (0.0-0.4); Lymphocytes Absolute Auto 2.7 X10*3/uL (1.2-4.9); Lymphocytes Percent Auto 33.6 % (20-40); Mean Corpuscular HGB Conc 31.4 g/dl (31.0-35.0); Mean Corpuscular Hemoglobin 25.3 pg (27.0-33.0); Mean Corpuscular Volume 80.4 fL (80.0-98.0); Mean Platelet Volume 8.7 fL (9.4-12.3); Monocytes Absolute Auto 0.6 X10*3/uL (0.1-1.2); Monocytes Percent Auto 7.5 % (2-11); Neutrophils Absolute Auto 4.3 x10*3/uL (2.0-8.3); Neutrophils Percent Auto 54.3 % (45-73); Platelet Count 471 X10*3/uL (160-400); Red Blood Count 4.75 X10*6/uL (4.20-5.50); Red Cell Distribution Width 16.8 % (11.0-16.0); White Blood Count 7.9 X10*3/uL (4.8-10.8)
[2023-08-27 10:32] LABS: Estimated Average Glucose 126 mg/dL
[2023-08-27 10:40] LABS: Rheumatoid Factor < 13.0 IU/mL (<15.0)
[2023-08-27 10:49] LABS: Alanine Aminotransferase 14 U/L (0-31); Albumin Level 4.4 g/dL (3.5-5.0); Alkaline Phosphatase 62 U/L (39-117); Anion Gap 14 (12-20); Aspartate Amino Transferase 18 U/L (5-31); Bilirubin Total 0.3 mg/dL (0.0-1.0); Blood Urea Nitrogen 8 mg/dL (9-16); C Reactive Protein 0.38 mg/dL (< or = 0.50); Calcium 9.2 mg/dL (8.4-10.2); Carbon Dioxide 24 mmol/L (22-29); Chloride 106 mmol/L (96-108); Cholesterol 218 mg/dL (<200); Estimated Glomerular Filt Rate > 60; Glucose Fasting 116 mg/dL (60-99); HDL Cholesterol 40 mg/dL (>40); LDL Cholesterol Calculated 117 mg/dL (<100); Sodium 140 mmol/L (135-145); Total Protein 7.9 g/dL (6.5-8.0); Triglycerides 308 mg/dL (<150)
[2023-08-27 11:00] LABS: Erythrocyte Sedimentation Rate 18 MM/HR (0-20)
[2023-08-27 11:09] LABS: TSH reflex Free T4 0.87 uIU/mL (0.32-4.0); Vitamin D 25-OH Total 21.8 ng/mL (>30)
[2023-08-29 02:54] LABS: Lyme Abs Screen <0.90 index
[2023-08-29 15:28] LABS: Anti Nuclear Antibody Screen NEGATIVE (NEGATIVE)
== END 2023-08-27 09:51 | disposition home or self-care (01) ==
LOC: HO.LAB 09:50
PROVIDERS: PCP Internal Medicine; Visit Provider Internal Medicine
DX: Z00.00 Encounter for general adult medical examination without abnormal findings (principal); R21 Rash and other nonspecific skin eruption; J30.9 Allergic rhinitis, unspecified; E78.00 Pure hypercholesterolemia, unspecified; E66.9 Obesity, unspecified; E55.9 Vitamin D deficiency, unspecified; R73.01 Impaired fasting glucose
CPT/HCPCS: 36415; 80053; 80061; 82306; 83036; 84443; 85025; 85652; 86038; 86140; 86431; 86617; 86618

== ENCOUNTER 2023-09-30 08:39 | Outpatient (AMB) | payer OTHER, SELFPAY ==
--- NOTE | 2023-09-30 08:47 | MHC.OFFVIS ---
Vital Signs 09/30/23 08:50 Height 5 ft 3 in Weight 176 lb 5.917 oz BMI 31.2 BP 138/90 H Intake Visit Reasons: IUD check O[employer] Required: No Information Interpreted: non-clinical & clinical Career Information Specialist: Career Information Specialist Present (Radha Rafal DAVIDSON) Accompanied by: Self / Same As Patient Allergies ibuprofen Allergy (Unknown, Verified 09/30/23 08:51) hives mold Allergy (Unknown, Verified 09/30/23 08:51) Hives Penicillins [PENICILLINS] Allergy (Unknown, Verified 09/30/23 08:51) Hives Is last menstrual period known: Yes HPI Comments Details: Presenting for repeat EMB in IUD check. The patient is doing well with no complaints minimal vaginal spotting no pelvic pain or any other concerns. [facility] Medical History Impaired fasting glucose Colon cancer screening Allergic rhinitis Vitamin D deficiency Pure hypercholesterolemia Obesity (BMI 30-39.9) Surgical History Hx of cervical polypectomy History of colonoscopy (~07/09/21) Family History Father Hypertension Diabetes Mother Medical history unknown Social History Housing: Apartment Alcohol intake: current Alcohol intake frequency: a few times a week Alcohol type: wine and hard liquor Patient Tobacco Use Status: Never used Tobacco e-Cigarette/Vaping Use: Never Used Second Hand Smoke Exposure: Yes service: No Current occupational status: employed Cognitive needs: No Hearing needs: No Vision needs: No Review of Systems Const All systems reviewed & are unremarkable except as noted in HPI and below Physical Exam Vital Signs: Last Vital Signs BP 138/90 H 09/30/23 08:50 BMI result Body Mass Index 31.2 General: Yes no CVA tenderness External Female Exam: normal external appearance and normal appearance of the urethra Speculum Exam - Vagina: normal appearance of the vagina, normal palpation, no lesions and no masses Speculum Exam - Cervix: normal appearance of the cervix, normal palpation, no lesions, no masses, nontender and Other cervical findings present (IUD thread in place) Bimanual exam- vagina & uterus: normal bimanual exam, normal palpation, uterine size normal, normal palpation, uterine shape normal, No Cervical tenderness present and non-tender Bimanual Exam- Adnexa, other: normal adnexae Back/Spine/Pelvis Back: no CVA tenderness Office Procedures Endometrial Biopsy Details: The patient was counseled regarding the indication and benefits of endometrial sampling to rule out endometrial pathology including not limited to endometrial hyperplasia or endometrial cancer and others; The alternatives (Either do nothing vs. hysteroscopy D&C) & the risks were discussed with the patient including but not limited: pain, uterine perforation, bleeding, infection, possible injury to bladder, bowel, ureter, possible need for blood transfusion with all its possible risks. The patient verbalized understanding all questions answered and signed consent. Urine test done in the office was negative The patient was placed into the dorsal lithotomy position; a speculum was inserted in the vagina. Using aseptic technique for the procedure, the cervix was cleansed with Betadine. The anterior lip of the cervix was grasped with a single tooth tenaculum. The uterus was sounded to 7 cm with a 4 mm Pipelle was used. Tissues samples were obtained and placed in formalin, in a patient labeled container and sent to the pathology department. At the end of the procedure, there was minimal bleeding noted The patient tolerated the procedure well and was discharged in good condition with the following instructions: Nothing in the vagina until the bleeding stops. No sex until the bleeding stops, to call if any of the following occurs: fever (>100.4), flu-like symptoms, abdominal pain, heavy bleeding, four smelling vaginal discharge. The patient was instructed to schedule a Follow up appointment in 2 weeks to discuss pathology results of the biopsy and treatment options. This note was generated with a voice recognition program. Some errors may have been overlooked during the review of this note. Sometimes these errors may affect the content or meaning of a given sentence. 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 Discussed with the patient the finding on physical exam, IUD string in place, the patient was reassured. Instructions given to patient to call in case of temperature above 100.4, severe cramping/pelvic pain, abnormal discharge or abnormal uterine bleeding or if she misses her menstrual cycle. Otherwise follow-up at her annual exam appointment. All questions answered, the patient verbalized understanding. Orders: Orders AMB HCG Urine Test Today Z32.02 - Encounter for test, result negative Surgical Today N93.9 - Abnormal uterine and vaginal bleeding, unspecified AMB Endometrial Biopsy Today N93.9 - Abnormal uterine and vaginal bleeding, unspecified Coding Level of Care Code Est Pt Level 3 (36130) Procedure Only Diagnoses Abnormal uterine bleeding (AUB) N93.9 IUD check up Z30.431 CPT Codes Endometrial Biopsy - CPT: 16556-[id number] Biopsy ([id number])
[2023-09-30 08:50] VITALS: BP 138/90; BMI 31.2
== END 2023-09-30 09:12 | disposition home or self-care (01) ==
LOC: HO.HWS 08:39
PROVIDERS: PCP Internal Medicine; Visit Provider Obstetrics & Gynecology
DX: N93.9 Abnormal uterine and vaginal bleeding, unspecified (principal); Z30.431 Encounter for routine checking of intrauterine contraceptive device; Z32.02 Encounter for pregnancy test, result negative
CPT/HCPCS: 58100; 99213

== ENCOUNTER 2023-09-30 08:39 | Outpatient (REF) | payer OTHER, SELFPAY | END 2023-09-30 08:40 | disposition home or self-care (01) | LOC: HO.LNP 08:39 | PROVIDERS: PCP Internal Medicine; Visit Provider Obstetrics & Gynecology | DX: N93.9 Abnormal uterine and vaginal bleeding, unspecified (principal) | CPT/HCPCS: 58100; 81025; 88305; 99212 ==

== ENCOUNTER 2023-10-21 10:59 | Outpatient (AMB) | payer OTHER, SELFPAY ==
--- NOTE | 2023-10-21 11:00 | A.OFFPC_ITS ---
Vital Signs 3 10/21/23 11:01 Height 5 ft 3 in Weight 181 lb BMI 32.1 BP 140/82 H Blood Pressure Location Lt brachial Position Sitting Pulse 100 Pulse Source Pulse Oximeter Pulse Oximetry (%) 97 Oxygen Delivery Method Room Air Intake Visit Reasons: Rash Requesting Prednisone Lumpia Wrapper Maker Required: No Allergies ibuprofen Allergy (Unknown, Verified 10/21/23 11:01) hives mold Allergy (Unknown, Verified 10/21/23 11:01) Hives Penicillins [PENICILLINS] Allergy (Unknown, Verified 10/21/23 11:01) Hives Medication List - Last Reconciled 10/21/23 by Bree Pereira PA-C cetirizine (Zyrtec) 10 mg PO DAILY fluticasone propionate 50 mcg/actuation 1 spray intranasal DAILY hydroxyzine HCl 25 mg PO TID PRN 30 days Tobacco use date assessed: 08/26/23 Dental Screening Dental Screen Date: 08/26/23 HPI Rash Requesting Prednisone 2 HPI0 Details 47-year-old female with past medical his tory hypercholesterolemia and impaired glucose tolerance last seen by Dr. La coming in for acute problem.? Patient has persistent rash on bilateral forearms and on bilateral breasts which have been present since the end of June this year. She was seen by Dr. La in 07/2023 and was given hydroxyzine which she does mentioned helps with the itching. The rash on her forearms has not worsened however the rash in the breast has been spreading. Denies any other symptoms. She has been trying to see Dermatology for several months and has an appointment scheduled for December. [facility] Medical History Impaired fasting glucose Colon cancer screening Allergic rhinitis Vitamin D deficiency Pure hypercholesterolemia Obesity (BMI 30-39.9) Surgical History Hx of cervical polypectomy History of colonoscopy (~07/09/21) Family History Father Hypertension Diabetes Mother Medical history unknown Social History Housing: Apartment Alcohol intake: current Alcohol intake frequency: a few times a week Alcohol type: wine and hard liquor Patient Tobacco Use Status: Never used Tobacco e-Cigarette/Vaping Use: Never Used Second Hand Smoke Exposure: Yes service: No Current occupational status: employed Cognitive needs: No Hearing needs: No Vision needs: No Questionnaire Thrive Questionnaire Date Thrive assessed: 08/26/23 AUDIT C Alcohol Use Questionnaire (AUDIT-C) 1. How often do you have a drink containing alcohol?: 2-3 times a week 2. How many drinks containing alcohol do you have on a typical day when you are drinking?: 1 or 2 3. How often do you have six or more drinks on one occasion?: Never Total Score: 3 Score Reviewed/Action Taken: Yes KARLA-7 AMB Questionnaire KARLA-7 Date KARLA - 7 assessed: 08/26/23 Source: Developed by Drs. Taurus Banks, Pam Spencer, Eddie Briseno and colleagues, with an educational william from [employer]. Review of Systems Const Denies chills and Denies fever(s) Eyes Reports no additional complaints ENT Denies dizziness Card Denies chest pain and Denies dyspnea Resp Denies cough and Denies dyspnea GI Denies abdominal pain Reports no additional complaints Musc Reports no additional complaints Skin/Breast Reports as per HPI Neuro Denies dizziness Psych Reports no additional complaints Physical exam (Primary Care) Vital Signs: Last Vital Signs Pulse 100 10/21/23 11:01 BP 140/82 H 10/21/23 11:01 Pulse Ox 97 10/21/23 11:01 Oxygen Delivery Method Room Air 10/21/23 11:01 BMI result Body Mass Index 32.1 Tobacco/Smoking Status: Tobacco use Status Tobacco use date assessed 08/26/23 10/21/23 11:01 Patient Tobacco Use Status Never used Tobacco 10/21/23 11:01 e-Cigarette/Vaping Use Never Used 10/21/23 11:01 Thrive Assessment: Date of Thrive Assessment Date Thrive assessed 08/26/23 10/21/23 11:01 Const General: cooperative, healthy appearing, comfortable and no acute distress Orientation/consciousness: patient oriented x3 HENMT Head: Yes normocephalic Ears: hearing grossly normal bilaterally General nose exam: Normal external nose present Eyes General: appearance normal, both eyes and all related structures Conjunctivae: conjunctivae normal Neck Neck: Yes full ROM and Yes no lymphadenopathy Resp Effort & Inspection: normal respiratory effort Auscultation: clear to auscultation bilaterally, no crackles, no rales, no rhonchi and no wheezes Cardio Rate: regular rate Rhythm: regular rhythm Skin Other: patchy mildly erythematous rash over both breasts - rash appear more concentrated close to the areolar areas of the breasts without dimpling or pain. erythematous, flaky, annular rash on bilateral forearms Full body images: 2 1. Annular rash 2. Annular rash Neuro General: patient oriented x3 Gait exam (Neuro): Normal gait present Extrem General: Yes normal to inspection, Yes full ROM and No edema Psych Affect: normal affect Attitude: cooperative Insight: Good insight present (Psych) Judgement: Good judgement present (Psych) Assessment and Plan Assessment & Plan (1) Rash: Code(s): R21 - Rash and other nonspecific skin eruption Plan: Unclear etiology of the rash however has been persistent for several months now. Would benefit from evaluation from Dermatology. Patient does have itching associated with the rash and has been taking hydroxyzine 25 mg t.i.d. as needed given by Dr. La and notes this is beneficial for her. She did have additional lab testing performed after her last visit which were all within normal limits. We will trial topical corticosteroid for rash on bilateral forearms and await for further direction from Dermatology. Patient agrees to this plan and will follow up if rash worsens or becomes painful or appears infectious. Plan This note was constructed using voice recognition software. While every effort has been made to ensure accuracy and fighting vehicle systems maintainer, still areas may have been included sometimes these areas may affect the content or meeting of the given symptoms. Total time spent caring for the patient today was 30 minutes. This includes time spent before the visit reviewing the chart, time spent during the visit, and time spent after the visit and documentation. Medications: New 2 triamcinolone acetonide 0.1% apply to affected area daily 1 appl topical DAILY 30 grams 0RF Coding Level of Care Code Est Pt Level 4 (61606) Diagnoses Rash R21
[2023-10-21 11:01] VITALS: BP 140/82; PULSE 100; O2SAT 97; BMI 32.1
== END 2023-10-21 11:45 | disposition home or self-care (01) ==
PROVIDERS: PCP Internal Medicine
DX: R21 Rash and other nonspecific skin eruption (principal)
CPT/HCPCS: 99214

== ENCOUNTER 2023-11-06 08:19 | Outpatient (AMB) | payer OTHER, SELFPAY ==
--- NOTE | 2023-11-06 08:32 | A.OFFVIS_ITS ---
Vital Signs 11/06/23 08:35 Height 5 ft 3 in Weight 180 lb 12.465 oz BMI 32.0 BP 132/80 Intake Visit Reasons: EMB results Allergies ibuprofen Allergy (Unknown, Verified 10/21/23 11:01) hives mold Allergy (Unknown, Verified 10/21/23 11:01) Hives Penicillins [PENICILLINS] Allergy (Unknown, Verified 10/21/23 11:01) Hives HPI Comments Details: The patient is presenting after endometrial biopsy. The patient has no complaints, no vaginal bleeding, no feverishness chills or abdominal pain. The endometrial biopsy pathology report showed the following: Endometrium, biopsy: Inactive endometrium with pseudodecidual change and breakdown, consistent with exogenous progestin; no atypia or hyperplasia identified. [facility] Medical History Impaired fasting glucose Colon cancer screening Allergic rhinitis Vitamin D deficiency Pure hypercholesterolemia Obesity (BMI 30-39.9) Surgical History Hx of cervical polypectomy History of colonoscopy (~07/09/21) Family History Father Hypertension Diabetes Mother Medical history unknown Social History Housing: Apartment Alcohol intake: current Alcohol intake frequency: a few times a week Alcohol type: wine and hard liquor Patient Tobacco Use Status: Never used Tobacco e-Cigarette/Vaping Use: Never Used Second Hand Smoke Exposure: Yes service: No Current occupational status: employed Cognitive needs: No Hearing needs: No Vision needs: No Review of Systems Const All systems reviewed & are unremarkable except as noted in HPI and below Reports as per HPI and Reports no additional complaints GI Reports no additional complaints Reports no additional complaints Physical Exam Vital Signs: Last Vital Signs BP 132/80 11/06/23 08:35 BMI result Body Mass Index 32.0 Assessment & Plan Assessment & Plan (1) Abnormal uterine bleeding (AUB): Comment: 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 Instructions given the patient to call in case of abnormal uterine bleeding will proceed with further endometrial sampling given the history of squamous metaplasia on EMB pathology in 05/24. All questions answered, the patient verbalized understanding Coding Level of Care Code Est Pt Level 3 (08410) Diagnoses Abnormal uterine bleeding (AUB) N93.9
[2023-11-06 08:35] VITALS: BP 132/80; BMI 32.0
== END 2023-11-06 08:43 | disposition home or self-care (01) ==
LOC: HO.HWS 08:19
PROVIDERS: PCP Internal Medicine; Visit Provider Obstetrics & Gynecology
DX: N93.9 Abnormal uterine and vaginal bleeding, unspecified (principal)
CPT/HCPCS: 99213

== ENCOUNTER → 2023-11-06 08:19 | Outpatient (BNVA) | payer OTHER, SELFPAY | PROVIDERS: PCP Internal Medicine; Visit Provider Obstetrics & Gynecology | DX: N93.9 Abnormal uterine and vaginal bleeding, unspecified (principal) | CPT/HCPCS: 99212 ==

== ENCOUNTER 2024-01-14 08:04 | Outpatient (AMB) | payer OTHER, SELFPAY ==
--- NOTE | 2024-01-14 08:07 | MHC.OFFVIS ---
Vital Signs 01/14/24 08:09 Height 5 ft 3 in Weight 180 lb 12.465 oz BMI 32.0 Intake Visit Reasons: EMB Intake Note: Per patient spots here and there sometimes lasting 1 day, sometimes lasting 2 days. Barytes Grinder Required: No Information Interpreted: non-clinical & clinical Master Naval Parachutist: Master Naval Parachutist Present (Radha Lyles STUART) Accompanied by: Self / Same As Patient Allergies ibuprofen Allergy (Unknown, Verified 01/14/24 08:14) hives mold Allergy (Unknown, Verified 01/14/24 08:14) Hives Penicillins [PENICILLINS] Allergy (Unknown, Verified 01/14/24 08:14) Hives HPI Comments Details: Presenting for EMB with no complaints [facility] Medical History Impaired fasting glucose Colon cancer screening Allergic rhinitis Vitamin D deficiency Pure hypercholesterolemia Obesity (BMI 30-39.9) Surgical History Hx of cervical polypectomy History of colonoscopy (~07/09/21) Family History Father Hypertension Diabetes Mother Medical history unknown Social History Housing: Apartment Alcohol intake: current Alcohol intake frequency: a few times a week Alcohol type: wine and hard liquor Patient Tobacco Use Status: Never used Tobacco e-Cigarette/Vaping Use: Never Used Second Hand Smoke Exposure: Yes service: No Current occupational status: employed Cognitive needs: No Hearing needs: No Vision needs: No Physical Exam Vital Signs: BMI result Body Mass Index 32.0 Office Procedures Endometrial Biopsy Details: The patient was counseled regarding the indication and benefits of endometrial sampling to rule out endometrial pathology including not limited to endometrial hyperplasia or endometrial cancer and others; The alternatives (Either do nothing vs. hysteroscopy D&C) & the risks were discussed with the patient including but not limited: pain, uterine perforation, bleeding, infection, possible injury to bladder, bowel, ureter, possible need for blood transfusion with all its possible risks. The patient verbalized understanding all questions answered and signed consent. The patient was placed into the dorsal lithotomy position; a speculum was inserted in the vagina. Using aseptic technique for the procedure, the cervix was cleansed with Betadine. The anterior lip of the cervix was grasped with a single tooth tenaculum. The uterus was sounded to 7 cm with a 4 mm Pipelle was used. Tissues samples were obtained and placed in formalin, in a patient labeled container and sent to the pathology department. At the end of the procedure, there was minimal bleeding noted The patient tolerated the procedure well and was discharged in good condition with the following instructions: Nothing in the vagina until the bleeding stops. No sex until the bleeding stops, to call if any of the following occurs: fever (>100.4), flu-like symptoms, abdominal pain, heavy bleeding, four smelling vaginal discharge. The patient was instructed to schedule a Follow up appointment in 2 weeks to discuss pathology results of the biopsy and treatment options. This note was generated with a voice recognition program. Some errors may have been overlooked during the review of this note. Sometimes these errors may affect the content or meaning of a given sentence. 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 in 05/24 07/24 prolifertaive endo 08/24 Mirena IUD insertion 09/23 inactive endometrium Code(s): N93.9 - Abnormal uterine and vaginal bleeding, unspecified Category: Medical Plan: EMB done, see procedure note Orders: Orders Surgical Today N93.9 - Abnormal uterine and vaginal bleeding, unspecified AMB HCG Urine Test Today Z32.02 - Encounter for test, result negative AMB Endometrial Biopsy Today N93.9 - Abnormal uterine and vaginal bleeding, unspecified Coding Level of Care Code Procedure Only Diagnoses Abnormal uterine bleeding (AUB) N93.9 CPT Codes Endometrial Biopsy - CPT: 06462-Odfvpeknido Biopsy ([id number])
[2024-01-14 08:09] VITALS: BMI 32.0
== END 2024-01-14 08:26 | disposition home or self-care (01) ==
PROVIDERS: PCP Internal Medicine; Visit Provider Obstetrics & Gynecology
DX: N93.9 Abnormal uterine and vaginal bleeding, unspecified (principal); Z32.02 Encounter for pregnancy test, result negative
CPT/HCPCS: 58100

== ENCOUNTER 2024-01-14 08:04 | Outpatient (REF) | payer OTHER, SELFPAY | END 2024-01-14 08:05 | disposition home or self-care (01) | LOC: HO.LNP 08:04 | PROVIDERS: PCP Internal Medicine; Visit Provider Obstetrics & Gynecology | DX: N93.9 Abnormal uterine and vaginal bleeding, unspecified (principal); Z32.02 Encounter for pregnancy test, result negative | CPT/HCPCS: 58100; 81025; 88305 ==

== ENCOUNTER 2024-01-21 10:58 | Outpatient (REF) | payer OTHER, SELFPAY | END 2024-01-21 10:59 | disposition home or self-care (01) | LOC: HO.US 10:58 | PROVIDERS: PCP Internal Medicine; Visit Provider Obstetrics & Gynecology | DX: D25.9 Leiomyoma of uterus, unspecified (principal) | CPT/HCPCS: 76830; 76856 ==

== ENCOUNTER 2024-02-17 09:07 | Outpatient (AMB) | payer OTHER, SELFPAY ==
--- NOTE | 2024-02-17 09:07 | MHC.OFFVIS ---
Intake Visit Reasons: TV emb results Allergies ibuprofen Allergy (Unknown, Verified 01/14/24 08:14) hives mold Allergy (Unknown, Verified 01/14/24 08:14) Hives Penicillins [PENICILLINS] Allergy (Unknown, Verified 01/14/24 08:14) Hives HPI Comments Details: The patient scheduled a telehealth visit for follow-up after endometrial biopsy. The patient has no complaints, no vaginal bleeding, no feverishness chills or abdominal pain. The endometrial biopsy pathology report showed the following: Endometrium, biopsy: Weakly secretory endometrium with pseudodecidual stromal change consistent with progestin effect; negative for atypia, hyperplasia or malignancy The patient had squamous metaplasia on EMB pathology in 05/24 since then had Mirena IUD inserted in 08/24 09/23 EMB pathology showed inactive endometrium [facility] Medical History Impaired fasting glucose Colon cancer screening Allergic rhinitis Vitamin D deficiency Pure hypercholesterolemia Obesity (BMI 30-39.9) Surgical History Hx of cervical polypectomy History of colonoscopy (~07/09/21) Family History Father Hypertension Diabetes Mother Medical history unknown Social History Housing: Apartment Alcohol intake: current Alcohol intake frequency: a few times a week Alcohol type: wine and hard liquor Patient Tobacco Use Status: Never used Tobacco e-Cigarette/Vaping Use: Never Used Second Hand Smoke Exposure: Yes service: No Current occupational status: employed Cognitive needs: No Hearing needs: No Vision needs: No Review of Systems Const All systems reviewed & are unremarkable except as noted in HPI and below Reports as per HPI and Reports no additional complaints GI Reports no additional complaints Reports no additional complaints Telehealth Telehealth Telehealth Platform: Telephone Location of provider rendering services: practice address Location of patient: address on file Patient Identification confirmed using: Name, : Yes Telehealth method: video Patient verbally consented to treatment: Yes Patient verbally consented to billing insurance company: Yes Patient informed of any privacy concerns related to visit: Yes Assessment & Plan Assessment & Plan (1) Abnormal uterine bleeding (AUB): Comment: 05/24 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 pathology 07/24 proliferative endo 08/24 Mirena IUD insertion 09/23 inactive endometrium 02/23 weakly secretory endometrium Code(s): N93.9 - Abnormal uterine and vaginal bleeding, unspecified Category: Medical Plan: Discussed with the patient the results of the pathology with no evidence of endometrial hyperplasia or malignancy, recommended repeat EMB in 4 months and to call in case of abnormal uterine bleeding. All questions answered, the patient verbalized understanding. I spent a total of 20 minutes reviewing the chart, talking to the patient via video and documenting in the medical record. Coding Level of Care Code Tele Est Pt Level 3 (79489) Diagnoses Abnormal uterine bleeding (AUB) N93.9
== END 2024-02-17 09:49 | disposition home or self-care (01) ==
LOC: HO.HWS 09:07
PROVIDERS: PCP Internal Medicine; Visit Provider Obstetrics & Gynecology
DX: N93.9 Abnormal uterine and vaginal bleeding, unspecified (principal)
CPT/HCPCS: 99213

== ENCOUNTER → 2024-02-17 09:07 | Outpatient (BNVA) | payer OTHER, SELFPAY | PROVIDERS: PCP Internal Medicine; Visit Provider Obstetrics & Gynecology ==

== ENCOUNTER 2024-02-27 09:00 | Outpatient (AMB) | payer OTHER, SELFPAY ==
--- NOTE | 2024-02-27 09:07 | A.OFFPC_ITS ---
Vital Signs 02/27/24 09:10 Height 5 ft 3 in Weight 185 lb 4 oz BMI 32.8 BP 130/70 Blood Pressure Location Lt brachial Position Sitting Pulse 92 Pulse Source Pulse Oximeter Pulse Oximetry (%) 96 Oxygen Delivery Method Room Air Intake Visit Reasons: Annual Exam Intake Note: Patient is here today for a physical. Numerical Control Operator Required: No Strip Polisher: Not Required per policy Accompanied by: Self / Same As Patient Allergies ibuprofen Allergy (Unknown, Verified 02/27/24 09:26) hives mold Allergy (Unknown, Verified 02/27/24 09:26) Hives Penicillins [PENICILLINS] Allergy (Unknown, Verified 02/27/24 09:26) Hives Medication List - Last Reconciled 02/27/24 by Ian La MD cetirizine (Zyrtec) 10 mg PO DAILY fluticasone propionate 50 mcg/actuation 1 spray intranasal DAILY hydroxyzine HCl 25 mg PO TID PRN 30 days ketoconazole 1% 1 appl topical 2XW triamcinolone acetonide 0.1% 1 appl topical DAILY Tobacco use date assessed: 02/27/24 Dental Screening Dental Screen Date: 08/26/23 HPI Annual Exam HPI Details Patient comes in today for her annual physical examination States that she has had a lingering cough since coming back from vacation a few weeks ago Recalls that she had increased cough and congestion a few weeks ago (thought she had sinusitis) but she did not run a fever and had no sore throat then States that she has been taking OTC Sudafed regularly since then for symptomatic relief and only stopped taking it a couple of days ago as she is starting to feel better now except for the lingering cough, which is mostly non-productive She denies any headaches or dizziness Denies any chest pains, no SOB No nausea/vomiting, no abdominal pain No change in bowel habits noted She denies any acute urinary symptoms Adds that she was seen by [facility] a few weeks ago for her rash, which were diagnosed as ringworm lesions and she was prescribed some topical antif ungal Rx, which helped clear up the rash She was not able to get her follow up labs done prior to her appointment today - states that she just flew back around midnight earlier today from visiting her family in [place] over the holidays States that she has not eaten anything yet and can go and get them done [facility] She had her annual mammogram and pap smear/gynecology exam done back in May 02 024 Had her colonoscopy done a couple of years ago in 2021 - was advised that her colonoscopy was normal and she will need repeat colonoscopy in 10 yrs [facility] Medical History Impaired fasting glucose Colon cancer screening Allergic rhinitis Vitamin D deficiency Pure hypercholesterolemia Obesity (BMI 30-39.9) Surgical History (Reviewed 02/27/24 @ 09: by Ian La MD) Hx of cervical polypectomy History of colonoscopy (~07/09/21) Family History (Reviewed 02/27/24 @ 09: by Ian La MD) Father Hypertension Diabetes Mother Medical history unknown Social History (Reviewed 02/27/24 @ 09: by Ian La MD) Housing: Apartment Alcohol intake: current Alcohol intake frequency: a few times a week Alcohol type: wine and hard liquor Patient Tobacco Use Status: Never used Tobacco e-Cigarette/Vaping Use: Never Used Second Hand Smoke Exposure: Yes service: No Current occupational status: employed Cognitive needs: No Hearing needs: No Vision needs: No Questionnaire PHQ-9 Over the last 2 weeks, how often have you been bothered by any of the following problems? 1. Little interest or pleasure in doing things: not at all 2. Feeling down, depressed, or hopeless: not at all 3. Trouble falling or staying asleep, or sleeping too much: not at all 4. Feeling tired or having little energy: not at all 5. Poor appetite or overeating: not at all 6. Feeling bad about yourself - or that you are a failure or have let yourself or your family down: not at all 7. Trouble concentrating on things, such as reading the newspaper or watching television: not at all 8. Moving or speaking so slowly that other people could have noticed. Or the opposite - being so fidgety or restless that you have been moving around a lot more than usual: not at all 9. Thoughts that you would be better off or of hurting yourself in some way: not at all Total score: 0 Depression Screening Interpretation: Negative Depression Screening Done: Yes 50649 - PHQ-9 Billing: Yes Source: Developed by Drs. Taurus Banks, Pam Spencer, Eddie Briseno and colleagues, with an educational william from [employer]. Thrive Questionnaire Date Thrive assessed: 02/27/24 I am a: Patient What is your living situation today?: I have a steady place to live Within the past 12 months, did the food you bought not last and you didn't have the money to get more?: Never true Within the past 12 months, did you worry whether your food would run out before you got money to buy more?: Never true Do you have trouble paying for medicines?: No Do you have trouble getting transportation to medical appointments?: No Do you have trouble paying your heating and electricity bill?: No Do you have trouble taking care of your child, family member or friend?: No Do you have trouble with day-to-day activities such as bathing, preparing meals, shopping, managing finances, etc.?: No Are you currently unemployed and looking for a job?: No Are you interested in more education?: No Please select the resources that you would like help with: None Currently or been in a relationship where the following occur: No concerns reported THRIVE Score: 0 AUDIT C Alcohol Use Questionnaire (AUDIT-C) 1. How often do you have a drink containing alcohol?: 2-4 times a month 2. How many drinks containing alcohol do you have on a typical day when you are drinking?: 1 or 2 3. How often do you have six or more drinks on one occasion?: Never Total Score: 2 Score Reviewed/Action Taken: Yes KARLA-7 AMB Questionnaire KARLA-7 Date KARLA - 7 assessed: 02/27/24 Feeling nervous, anxious, or on edge: 0 = Not at all Not being able to stop or control worryin = Not at all Worrying too much about different things: 0 = Not at all Trouble relaxin = Not at all Being so restless that it is hard to sit still: 0 = Not at all Becoming easily annoyed or irritable: 0 = Not at all Feeling afraid as if something awful might happen: 0 = Not at all Total KARLA-7 score (0-4 normal; 5-9 mild; 10-14 moderate; 15-21 severe): 0 Source: Developed by Drs. Taurus Banks, Pam Spencer, Eddie Briseno and colleagues, with an educational william from [employer]. Review of Systems Const Denies chills, Denies fatigue, Denies fever(s), Denies headache(s) and Denies malaise Eyes Denies blurry vision, Denies change in vision, Denies irritation and Denies itchy eyes ENT Denies dysphagia, Denies dizziness, Denies otalgia, Denies headache(s), Reports nasal congestion (resolving - see HPI), Denies neck pain, Denies odynophagia, Denies sinus pain and Denies sore throat Card Denies chest pain, Denies rapid heart rate, Denies irregular heart rhythm, Denies palpitations and Denies dyspnea Resp Denies chest congestion, Reports cough (lingering non-productive cough, which she's had for a few weeks), Denies dyspnea and Denies wheezing GI Denies abdominal pain, Denies bloating, Denies constipation, Denies dysphagia, Denies heartburn, Denies diarrhea, Denies nausea, Denies odynophagia and Denies vomiting Denies hematuria, Denies urinary frequency, Denies dysuria, Denies urinary incontinence and Denies urinary urgency Musc Denies back pain, Denies arthralgias, Denies joint swelling, Denies muscle weakness and Denies neck pain Skin/Breast Denies breast pain, Denies breast mass, Denies change in pigmentation, Denies lesions, Denies rash and Denies unusual bruising Neuro Denies dizziness, Denies headache(s) and Denies paresthesias Psych Denies anxiety and Denies depression Endo Denies fatigue and Denies palpitations Krishna/Lymph Denies easy bruising Aller/Immun Denies itchy eyes and Denies wheezing Physical exam (Primary Care) Vital Signs: Last Vital Signs Pulse 92 02/27/24 09:10 BP 130/70 02/27/24 09:10 Pulse Ox 96 02/27/24 09:10 Oxygen Delivery Method Room Air 02/27/24 09:10 BMI result Body Mass Index 32.8 Tobacco/Smoking Status: Tobacco use Status Tobacco use date assessed 02/27/24 02/27/24 09:14 Patient Tobacco Use Status Never used Tobacco 02/27/24 09:14 e-Cigarette/Vaping Use Never Used 02/27/24 09:14 PHQ-9: PHQ-9 Score PHQ-9: Total score 0 02/27/24 09:14 Depression Screening Interpretation: Negative Thrive Assessment: Date of Thrive Assessment Date Thrive assessed 02/27/24 02/27/24 09:14 Currently or been in a relationship where the following occur: No concerns reported Const General: no acute distress, alert and awake Orientation/consciousness: patient oriented x3 HENMT Head: Yes normocephalic and Yes atraumatic Ears: external ears normal, TM's normal bilaterally and EAC's normal General nose exam: No nasal discharge present Face and sinus: Yes normal facial exam and Yes sinuses nontender Teeth and gingiva: dentition normal Throat: Yes posterior oropharynx normal and Yes tonsils normal (no TP congestion) Eyes Eyelids: Yes eyelids normal Conjunctivae: conjunctivae normal Pupils: Equal, round and reactive pupils present EOM: EOMs intact bilaterally Neck Neck: Yes no lymphadenopathy and Yes supple Thyroid: Thyroid normal Resp Auscultation: no rales, rhonchi (occasional) throughout and no wheezes Cardio Rate: regular rate Rhythm: regular rhythm Heart sounds: no murmurs GI Palpation (GI): Soft to palpation, nontender and No hepatosplenomegaly present Auscultation: normal bowel sounds General: Yes no CVA tenderness Back/Spine/Pelvis Back: no CVA tenderness Thoracic/Lumbar Spine: thoracic and lumbar spine normal to inspection Skin Lesions: no lesions Rashes: no rashes Neuro General: patient oriented x3, moves all extremities, no focal motor deficits and CN's II-XI intact bilaterally Cranial nerves: Yes Equal, round and reactive pupils present Cognition (Neuro): normal cognition Gait exam (Neuro): Normal gait present Extrem General: Yes no clubbing, cyanosis or edema Coding Level of Care Code Est Pt Prev Care 40-64y(48601) Diagnoses Annual physical exam Z00.00 Pure hypercholesterolemia E78.00 Impaired fasting glucose R73.01 Vitamin D deficiency E55.9 Seasonal allergic rhinitis, unspecified trigger J30.2 Allergic rhinitis trigger: unspecified Allergic rhinitis seasonality: seasonal Tinea corporis B35.4 Upper respiratory tract infection, unspecified type J06.9 URI type: unspecified URI Uterine leiomyoma, unspecified location D25.9 Uterine leiomyoma location: unspecified location Obesity (BMI 30-39.9) E66.9 Additional Codes PHQ-9 - 26354 - PHQ-9 Billing: Yes ([id number]) Assessment & Plan Assessment & Plan (1) Annual physical exam: Code(s): Z00.00 - Encounter for general adult medical examination without abnormal findings Category: Medical Plan: Patient was not able to get her previously ordered labs done yet - states that she can go and get them done after her appointment today as she has not yet eaten anything this morning She is up-to-date with her cancer screenings - had her mammogram and gynecology exam / pap smear in May 2023 although she is currently seeing Dr. Gomez for uterine fibroids Had endometrial Bx done a couple of months ago that came out benign She had her screening colonoscopy done in 2021 that came out normal - is recommended for repeat colonoscopy in 10 years (2031) (2) Pure hypercholesterolemia: Code(s): E78.00 - Pure hypercholesterolemia, unspecified Category: Medical Plan: Have reminded patient that her cholesterol levels were very high when last checked a few months ago Patient admits that she is still not compliant with her diet and has gained some more weight since her last visit Will have her recheck her fasting lipids and advised that if her cholesterol levels are even higher than they were a few months ago, then she may need to consider starting on some cholesterol-lowering medications in the meantime to help get her numbers down to more reasonable levels Will have her recheck her labs and fasting lipids again in 6 months for follow up (3) Impaired fasting glucose: Code(s): R73.01 - Impaired fasting glucose Category: Medical Plan: Reinforced low calorie/low carb diet; exercise as tolerated Will recheck her FBS and HgbA1c for follow up (4) Vitamin D deficiency: Code(s): E55.9 - Vitamin D deficiency, unspecified Category: Medical Plan: Will recheck her Vitamin D level for follow up (5) Allergic rhinitis: Code(s): J30.9 - Allergic rhinitis, unspecified Category: Medical Qualifiers: Allergic rhinitis trigger: unspecified Allergic rhinitis seasonality: seasonal Qualified Code(s): J30.2 - Other seasonal allergic rhinitis Plan: Continue Cetirizine 10 mg QD PRN and Fluticasone 50 mcg nasal spray QD PRN (6) Tinea corporis: Code(s): B35.4 - Tinea corporis Category: Medical Plan: Improving with topical antifungal Rx from [facility] a few weeks ago Follow up with dermatology as scheduled or as needed (7) Upper respiratory tract infection: Code(s): J06.9 - Acute upper respiratory infection, unspecified Category: Medical Qualifiers: URI type: unspecified URI Qualified Code(s): J06.9 - Acute upper respiratory infection, unspecified Plan: Resolving Patient is advised that she likely had a respiratory tract infection that took a while longer to clear up but based on her symptoms, it appears to be resolving as her lungs sounded clear on exam today Have advised her that cough is usually the last symptom to go away with respiratory infections but she should call back if her symptoms start turning wo rse again over the next week or two (8) Uterine myoma: Code(s): D25.9 - Leiomyoma of uterus, unspecified Category: Medical Qualifiers: Uterine leiomyoma location: unspecified location Qualified Code(s): D25.9 - Leiomyoma of uterus, unspecified Plan: Her recent pelvic US done last month (January 2024) revealed (+) multiple uterine fibroids with the largest measuring 6.1 cm There is also a benign 4.9 cm right ovarian cyst that does not require follow-up Follow up with gynecology (Dr. Gomez) as scheduled (9) Obesity (BMI 30-39.9): Code(s): E66.9 - Obesity, unspecified Category: Medical Plan: Reinforced diet/exercise as tolerated/lose weight Plan Follow up in 6 months Orders: Orders Lipid Panel 6 Months E78.00 - Pure hypercholesterolemia, unspecified TSH reflex Free T4 6 Months E78.00 - Pure hypercholesterolemia, unspecified Comprehensive Jacobson. Panel Fast 6 Months E78.00 - Pure hypercholesterolemia, unspecified Complete Blood Count Auto Diff 6 Months D64.9 - Anemia, unspecified UA CC w/rflx Micro + Cult 6 Months R30.0 - Dysuria
[2024-02-27 09:10] VITALS: BP 130/70; PULSE 92; O2SAT 96; BMI 32.8
== END 2024-02-27 09:36 | disposition home or self-care (01) ==
PROVIDERS: PCP Internal Medicine; Visit Provider Internal Medicine
DX: Z00.00 Encounter for general adult medical examination without abnormal findings (principal); E78.00 Pure hypercholesterolemia, unspecified; E66.9 Obesity, unspecified; Z68.32 Body mass index [BMI] 32.0-32.9, adult; R73.01 Impaired fasting glucose; E55.9 Vitamin D deficiency, unspecified; J30.2 Other seasonal allergic rhinitis; B35.4 Tinea corporis; J06.9 Acute upper respiratory infection, unspecified; D25.9 Leiomyoma of uterus, unspecified

== ENCOUNTER 2024-03-11 11:22 | Outpatient (AMB) | payer OTHER, SELFPAY ==
--- NOTE | 2024-03-11 11:22 | MHC.OFFVIS ---
Intake Visit Reasons: ultrasound results Allergies ibuprofen Allergy (Unknown, Verified 02/27/24 09:26) hives mold Allergy (Unknown, Verified 02/27/24 09:26) Hives Penicillins [PENICILLINS] Allergy (Unknown, Verified 02/27/24 09:) Hives HPI Comments Details: The patient is scheduled tele health visit to discuss the results of the pelvic ultrasound which showed the following: Uterus: The uterus is anteverted , mildly enlarged and measures 11.4 x 5.5 x 6.9 cm for a volume of 227. The double wall endometrial thickness could not be evaluated as an IUD is in place. Multiple uterine fibroids are present with 4 measured ranging in size from 1.1 cm up to 6.1 cm. The largest fibroid has increased in size from 4.6 x 5.3 x 4.9 cm to 6.0 x 4.9 x 6.1 cm. Multiple nabothian cysts are seen in the cervix Adnexa: Both ovaries are visualized. There is normal color flow to the adnexa. There is no ovarian torsion. There is no pelvic ascites or fluid collection. Right ovary measures 5.5 x 3.7 x 4.4 cm 47 cc which includes a benign 4.9 cm cyst. Left ovary measures 3.3 x 2.1 x 3.0 cm for a volume of 11 cc and appears unremarkable. cm. [facility] Medical History Impaired fasting glucose Colon cancer screening Allergic rhinitis Vitamin D deficiency Pure hypercholesterolemia Obesity (BMI 30-39.9) Surgical History Hx of cervical polypectomy History of colonoscopy (~07/09/21) Family History Father Hypertension Diabetes Mother Medical history unknown Social History Housing: Apartment Alcohol intake: current Alcohol intake frequency: a few times a week Alcohol type: wine and hard liquor Patient Tobacco Use Status: Never used Tobacco e-Cigarette/Vaping Use: Never Used Second Hand Smoke Exposure: Yes service: No Current occupational status: employed Cognitive needs: No Hearing needs: No Vision needs: No Review of Systems Const All systems reviewed & are unremarkable except as noted in HPI and below Reports as per HPI and Reports no additional complaints GI Reports no additional complaints Reports no additional complaints Telehealth Telehealth Telehealth Platform: Telephone Location of provider rendering services: practice address Location of patient: address on file Patient Identification confirmed using: Name, : Yes Telehealth method: video Patient verbally consented to treatment: Yes Patient verbally consented to billing insurance company: Yes Patient informed of any privacy concerns related to visit: Yes Assessment & Plan Assessment & Plan (1) Uterine myoma: Code(s): D25.9 - Leiomyoma of uterus, unspecified Category: Medical Qualifiers: Uterine leiomyoma location: unspecified location Qualified Code(s): D25.9 - Leiomyoma of uterus, unspecified Plan: Discussed with the patient the findings on pelvic ultrasound & the risk of myosarcoma; discussed with the patient the options of treatment including expectant management versus hysterectomy; the pros and cons, risks benefits of each approach were discussed with the patient including the fact that in cases of myosarcoma, surgical treatment can lead to early diagnosis and positively affects the prognosis; after further discussion, the patient decided to proceed with expectant management. Will repeat pelvic ultrasound periodically. Instructions given to patient to call in case any of the following occurs: pressure symptoms, abnormal uterine bleeding, pelvic pain; and to schedule a 8 months pelvic ultrasound (order placed) and a follow-up appointment . All questions answered, the patient verbalized understanding and agreed with the plan . I spent a total of 20 minutes reviewing the chart, talking to the patient via video and documenting in the medical record. Orders: Orders US pelvic and transvaginal 8 Months D25.9 - Leiomyoma of uterus, unspecified Coding Level of Care Code Tele Est Pt Level 3 (23213) Diagnoses Uterine leiomyoma, unspecified location D25.9 Uterine leiomyoma location: unspecified location
== END 2024-03-11 12:23 | disposition home or self-care (01) ==
LOC: HO.HWS 11:22
PROVIDERS: PCP Internal Medicine; Visit Provider Obstetrics & Gynecology
DX: D25.9 Leiomyoma of uterus, unspecified (principal)
CPT/HCPCS: 99213

== ENCOUNTER 2024-05-07 07:54 | Outpatient (REF) | payer OTHER, SELFPAY | END 2024-05-07 07:55 | disposition home or self-care (01) | LOC: HO.MAMMO 07:54 | PROVIDERS: PCP Internal Medicine; Visit Provider Internal Medicine | DX: Z12.31 Encounter for screening mammogram for malignant neoplasm of breast (principal) | CPT/HCPCS: 77063; 77067 ==

== ENCOUNTER → 2024-05-07 08:00 | Outpatient (BNV) | payer OTHER, SELFPAY | PROVIDERS: PCP Internal Medicine; Visit Provider Internal Medicine | DX: Z12.31 Encounter for screening mammogram for malignant neoplasm of breast (principal) | CPT/HCPCS: 77063; 77067 ==

== ENCOUNTER 2024-06-24 08:19 | Outpatient (AMB) | payer OTHER, SELFPAY ==
--- NOTE | 2024-06-24 08:21 | A.OFFVIS_ITS ---
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 No complaints. No abnormal uterine bleeding Last Pap/HPV was negative in 05/24 Last Mammogram was BI-RADS 1 in 05/25 Last colonoscopy was in 07/22 05/24 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 pathology 07/24 proliferative endo 08/24 Mirena IUD insertion 09/23 inactive endometrium 02/23 weakly secretory endometrium PFSH Medical History Impaired fasting glucose Colon cancer screening Allergic rhinitis Vitamin D deficiency Pure hypercholesterolemia Obesity (BMI 30-39.9) Surgical History Hx of cervical polypectomy History of colonoscopy (~07/09/21) Family History Father Hypertension Diabetes Mother Medical history unknown Social History Housing: Apartment Alcohol intake: current Alcohol intake frequency: a few times a week Alcohol type: wine and hard liquor Patient Tobacco Use Status: Never used Tobacco e-Cigarette/Vaping Use: Never Used Second Hand Smoke Exposure: Yes service: No Current occupational status: employed Cognitive needs: No Hearing needs: No Vision needs: No Female Reproductive History Menstrual Date of last pap smear: 05/22/23 Date of Mammogram: 05/07/24 Review of Systems Const All systems reviewed & are unremarkable except as noted in HPI and below Card Reports as per HPI Resp Reports as per HPI GI Reports as per HPI and Reports no additional complaints Reports as per HPI Physical Exam Vital Signs: Last Vital Signs BP 120/88 06/24/24 08:23 BMI result Body Mass Index 31.9 Const General: cooperative, healthy appearing and comfortable Chest Chest palpation & inspection: normal inspection of the chest and normal palpation of entire chest wall Breast/axilla inspection: normal inspection of the breasts and normal inspection of the axillae Breast/axilla palpation: normal palpation of the breasts, normal palpation of the axillae and no axillary lymphadenopathy Resp Effort & Inspection: normal respiratory effort Auscultation: clear to auscultation bilaterally Percussion: percussion normal Cardio Palpation: normal PMI Rate: regular rate Rhythm: regular rhythm Heart sounds: no murmurs and no rubs Peripheral pulses: Peripheral pulses 2+ throughout GI Inspection: Yes normal to inspection Palpation (GI): Soft to palpation, nontender, no guarding, not rigid and No hepatosplenomegaly present Percussion: Yes normal to percussion Auscultation: normal bowel sounds Rectal Exam - Female: deferred General: Yes bladder normal to palpation External Female Exam: No lesion Speculum Exam - Vagina: normal appearance of the vagina, normal palpation, normal vaginal discharge and not erythematous Speculum Exam - Cervix: normal appearance of the cervix, normal palpation and Other cervical findings present (IUD string seen) Bimanual exam- vagina & uterus: normal bimanual exam, normal palpation, uterine size normal, bladder normal to palpation, consistency normal and normal palpation Bimanual Exam- Adnexa, other: normal adnexae, no masses and no tenderness Office Procedures Endometrial Biopsy Details: The patient was counseled regarding the indication and benefits of endometrial sampling to rule out endometrial pathology including not limited to endometrial hyperplasia or endometrial cancer and others; The alternatives (Either do nothing vs. hysteroscopy D&C) & the risks were discussed with the patient including but not limited: pain, uterine perforation, bleeding, infection, possible injury to bladder, bowel, ureter, possible need for blood transfusion with all its possible risks. The patient verbalized understanding all questions answered and signed consent. Urine test done in the office was negative The patient was placed into the dorsal lithotomy position; a speculum was inserted in the vagina. Using aseptic technique for the procedure, the cervix was cleansed with Betadine. The anterior lip of the cervix was grasped with a single tooth tenaculum. The uterus was sounded to 7 cm with a 4 mm Pipelle was used. Tissues samples were obtained and placed in formalin, in a patient labeled container and sent to the pathology department. At the end of the procedure, there was minimal bleeding noted The patient tolerated the procedure well and was discharged in good condition with the following instructions: Nothing in the vagina until the bleeding stops. No sex until the bleeding stops, to call if any of the following occurs: fever (>100.4), flu-like symptoms, abdominal pain, heavy bleeding, four smelling vaginal discharge. The patient was instructed to schedule a Follow up appointment in 2 weeks to discuss pathology results of the biopsy and treatment options. This note was generated with a voice recognition program. Some errors may have been overlooked during the review of this note. Sometimes these errors may affect the content or meaning of a given sentence. [id number] Biopsy Assessment & Plan Assessment & Plan (1) Well woman exam: Code(s): Z01.419 - Encounter for gynecological examination (general) (routine) without abnormal findings Category: Medical Plan: Cotesting not indicated this year. Instructions given the patient to schedule next screening Mammogram in 05/26. Counseled the patient about the recommended dietary allowance of 1000 mg of Calcium & 600 IU of vitamin D. The patient was instructed to perform monthly self-breast exams and to schedule an annual exam in a year; All questions answered and the patient verbalized understanding. Instructed the patient to schedule annual exam in a year (2) Abnormal uterine bleeding (AUB): Comment: 05/24 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 pathology 07/24 proliferative endo 08/24 Mirena IUD insertion 09/23 inactive endometrium 02/23 weakly secretory endometrium Code(s): N93.9 - Abnormal uterine and vaginal bleeding, unspecified Category: Medical Plan: EMB done, see procedure note Instructions given the patient is schedule a 2 week follow-up appointment. Orders: Orders AMB Endometrial Biopsy Today N93.9 - Abnormal uterine and vaginal bleeding, unspecified Coding Level of Care Code Est Pt Prev Care 40-64y(10349) Diagnoses Well woman exam Z01.419 Abnormal uterine bleeding (AUB) N93.9 CPT Codes Endometrial Biopsy - CPT: 30977-Aofhfplzgqx Biopsy ([id number])
[2024-06-24 08:23] VITALS: BP 120/88; BMI 31.9
== END 2024-06-24 08:54 | disposition home or self-care (01) ==
LOC: HO.HWS 08:19
PROVIDERS: PCP Internal Medicine; Visit Provider Obstetrics & Gynecology
DX: Z01.419 Encounter for gynecological examination (general) (routine) without abnormal findings (principal); N93.9 Abnormal uterine and vaginal bleeding, unspecified
CPT/HCPCS: 58100; 99396; 99459

== ENCOUNTER 2024-06-24 08:19 | Outpatient (REF) | payer OTHER, SELFPAY | END 2024-06-24 08:20 | disposition home or self-care (01) | LOC: HO.LNP 08:19 | PROVIDERS: PCP Internal Medicine; Visit Provider Obstetrics & Gynecology | DX: Z01.419 Encounter for gynecological examination (general) (routine) without abnormal findings (principal); N93.9 Abnormal uterine and vaginal bleeding, unspecified; Z97.5 Presence of (intrauterine) contraceptive device | CPT/HCPCS: 58100; 88305; 99396; 99459 ==

== ENCOUNTER 2024-07-15 12:21 | Outpatient (AMB) | payer OTHER, SELFPAY ==
--- NOTE | 2024-07-15 12:21 | MHC.OFFVIS ---
Intake Visit Reasons: emb follow up Allergies ibuprofen Allergy (Unknown, Verified 06/24/24 08:31) hives mold Allergy (Unknown, Verified 06/24/24 08:31) Hives Penicillins [PENICILLINS] Allergy (Unknown, Verified 06/24/24 08:31) Hives HPI Comments Details: The patient schedule a telehealth visit after endometrial biopsy. The patient has no complaints, no vaginal bleeding, no feverishness chills or abdominal pain. The endometrial biopsy pathology report showed the following: Endometrium, biopsy: - Superficial fragments of benign endometrium with pseudodecidual change (consistent with exogenous progestin), focal necrosis and breakdown, - Strips of endocervical epithelium within normal limits. - No atypia identified The patient has the following history of endometrial pathology 05/24 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 pathology 07/24 proliferative endo 08/24 Mirena IUD insertion 09/23 inactive endometrium 02/23 weakly secretory endometrium PFSH Medical History Impaired fasting glucose Colon cancer screening Allergic rhinitis Vitamin D deficiency Pure hypercholesterolemia Obesity (BMI 30-39.9) Surgical History Hx of cervical polypectomy History of colonoscopy (~07/09/21) Family History Father Hypertension Diabetes Mother Medical history unknown Social History Housing: Apartment Alcohol intake: current Alcohol intake frequency: a few times a week Alcohol type: wine and hard liquor Patient Tobacco Use Status: Never used Tobacco e-Cigarette/Vaping Use: Never Used Second Hand Smoke Exposure: Yes service: No Current occupational status: employed Cognitive needs: No Hearing needs: No Vision needs: No Review of Systems Const All systems reviewed & are unremarkable except as noted in HPI and below Reports as per HPI and Reports no additional complaints GI Reports no additional complaints Reports no additional complaints Telehealth Telehealth Telehealth Platform: Telephone Location of provider rendering services: practice address Location of patient: address on file Patient Identification confirmed using: Name, : Yes Telehealth method: video Patient verbally consented to treatment: Yes Patient verbally consented to billing insurance company: Yes Patient informed of any privacy concerns related to visit: Yes Minutes spent on Phone/Video with Pt.: 5 Assessment & Plan Assessment & Plan (1) Abnormal uterine bleeding (AUB): Comment: 05/24 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 pathology 07/24 proliferative endo 08/24 Mirena IUD insertion 09/23 inactive endometrium 02/23 weakly secretory endometrium 06/25 benign endometrium Code(s): N93.9 - Abnormal uterine and vaginal bleeding, unspecified Category: Medical Plan: Discussed with the patient the results of the pathology showing benign endometrium with no evidence of proliferation, instructions given the patient to call in case of abnormal uterine bleeding will proceed with endometrial sampling to rule out endometrial pathology including hyperplasia and/or malignancy. All questions answered, the patient verbalized understanding I spent a total of 20 minutes reviewing the chart, talking to the patient via video and documenting in the medical record. Coding Level of Care Code Tele Est Pt Level 3 (33526) Diagnoses Abnormal uterine bleeding (AUB) N93.9
== END 2024-07-15 13:23 | disposition home or self-care (01) ==
LOC: HO.HWS 12:21
PROVIDERS: PCP Internal Medicine; Visit Provider Obstetrics & Gynecology
DX: N93.9 Abnormal uterine and vaginal bleeding, unspecified (principal)
CPT/HCPCS: 99213

== ENCOUNTER → 2024-07-15 12:21 | Outpatient (BNVA) | payer OTHER, SELFPAY | PROVIDERS: PCP Internal Medicine; Visit Provider Obstetrics & Gynecology ==

== ENCOUNTER 2024-09-16 09:48 | Outpatient (REF) | payer OTHER, SELFPAY ==
[2024-09-16 10:07] LABS: MANUAL DIFF FLAG NO
[2024-09-16 10:40] LABS: Hematocrit 37.6 % (37.0-47.0); Hemoglobin 13.1 g/dl (12.0-16.0); Imm Gran Abs Auto 0.07 X10*3/uL (0.00-0.03); Imm Gran Pct Auto 0.8 % (0.0-0.4); Lymphocytes Absolute Auto 3.0 X10*3/uL (1.2-4.9); Mean Corpuscular HGB Conc 34.8 g/dl (31.0-35.0); Mean Corpuscular Hemoglobin 29.7 pg (27.0-33.0); Mean Corpuscular Volume 85.3 fL (80.0-98.0); NRBC Abs Auto 0.000 X10*3/uL (0.0-0.012); NRBC Pct Auto 0.0 /100WBC (0.0-0.2); Platelet Count 374 X10*3/uL (160-400); Red Blood Count 4.41 X10*6/uL (4.20-5.50); White Blood Count 9.1 X10*3/uL (4.8-10.8)
[2024-09-16 11:38] LABS: Alanine Aminotransferase 35 U/L (0-31); Albumin Level 4.4 g/dL (3.5-5.0); Alkaline Phosphatase 59 U/L (39-117); Anion Gap 14 (12-20); Aspartate Amino Transferase 25 U/L (5-31); Blood Urea Nitrogen 8 mg/dL (9-16); Calcium 8.9 mg/dL (8.4-10.2); Carbon Dioxide 23 mmol/L (22-29); Chloride 105 mmol/L (96-108); Cholesterol 178 mg/dL (<200); Estimated Glomerular Filt Rate > 60; HDL Cholesterol 35 mg/dL (>40); Potassium 3.4 mmol/L (3.3-5.1); Sodium 139 mmol/L (135-145); Total Protein 7.4 g/dL (6.5-8.0); Triglycerides 216 mg/dL (<150)
[2024-09-16 11:54] LABS: Appearance Urine Clear; Glucose Urine UA Negative (Negative); PH 7.0 (5.0-9.0); Specific Gravity - Urine <= 1.005 (1.005-1.025); UMIC TRIGGER UACC YES
== END 2024-09-16 09:49 | disposition home or self-care (01) ==
LOC: HO.LAB 09:48
PROVIDERS: Visit Provider Internal Medicine
DX: E78.00 Pure hypercholesterolemia, unspecified (principal); R21 Rash and other nonspecific skin eruption; D64.9 Anemia, unspecified
CPT/HCPCS: 36415; 80053; 80061; 81001; 84443; 85025

== ENCOUNTER 2024-09-17 09:06 | Outpatient (AMB) | payer OTHER, SELFPAY ==
--- NOTE | 2024-09-17 09:20 | MHC.PC.OV ---
Vital Signs 09/17/24 09:21 Height 5 ft 3 in Weight 183 lb 2 oz BMI 32.4 BP 136/60 Blood Pressure Location Lt brachial Position Sitting Respiration 18 Pulse 86 Pulse Source Pulse Oximeter Temp 98.3 F Temp Source Oral Pulse Oximetry (%) 97 Oxygen Delivery Method Room Air Intake Visit Reasons: Hyperlipidemia Image Consultant Required: No Accompanied by: Self / Same As Patient Allergies ibuprofen Allergy (Unknown, Verified 09/17/24 09:57) hives mold Allergy (Unknown, Verified 09/17/24 09:57) Hives Penicillins (PENICILLINS) Allergy (Unknown, Verified 09/17/24 09:57) Hives Medication List - Last Reconciled 09/17/24 by ED Cota cetirizine (Zyrtec) 10 mg PO DAILY fluticasone propionate 50 mcg/actuation 1 spray intranasal DAILY hydroxyzine HCl 25 mg PO TID PRN 30 days ketoconazole 1% 1 appl topical 2XW triamcinolone acetonide 0.1% 1 appl topical DAILY Tobacco use date assessed: 09/17/24 Dental Screening Dental Screen Date: 09/17/24 HPI Hyperlipidemia HPI Details The patient is a 48-year-old female presenting with gastrointestinal symptoms following recent travel. She reports experiencing stomach pain and discomfort, which began approximately 12 hours after returning from her trip. Initially, she was unable to consume solid foods and gradually reintroduced them over a week, starting with crackers and progressing to rice and salad. The patient took azithromycin for three days, which provided some relief, although she continues to experience mild stomach discomfort. She denies diarrhea but reports a change in bowel habits, going once a day. She has not been taking probiotics but plans to start them as recommended. The patient also has a history of hyperlipidemia, which is being managed with dietary changes and omega-3 supplements. Her recent lab results showed elevated liver enzymes, which may be related to her gastrointestinal issues. [facility] Medical History Impaired fasting glucose Colon cancer screening Allergic rhinitis Vitamin D deficiency Pure hypercholesterolemia Obesity (BMI 30-39.9) Surgical History Hx of cervical polypectomy History of colonoscopy (~07/09/21) Family History Father Hypertension Diabetes Mother Medical history unknown Social History Housing: Apartment Alcohol intake: current Alcohol intake frequency: a few times a week Alcohol type: wine and hard liquor Patient Tobacco Use Status: Never used Tobacco e-Cigarette/Vaping Use: Never Used Second Hand Smoke Exposure: Yes service: No Current occupational status: employed Cognitive needs: No Hearing needs: No Vision needs: No Questionnaire PHQ-9 Over the last 2 weeks, how often have you been bothered by any of the following problems? 1. Little interest or pleasure in doing things: not at all 2. Feeling down, depressed, or hopeless: not at all 3. Trouble falling or staying asleep, or sleeping too much: not at all 4. Feeling tired or having little energy: not at all 5. Poor appetite or overeating: not at all 6. Feeling bad about yourself - or that you are a failure or have let yourself or your family down: not at all 7. Trouble concentrating on things, such as reading the newspaper or watching television: not at all 8. Moving or speaking so slowly that other people could have noticed. Or the opposite - being so fidgety or restless that you have been moving around a lot more than usual: not at all 9. Thoughts that you would be better off or of hurting yourself in some way: not at all Total score: 0 Source: Developed by Drs. Taurus Banks, Pam Spencer, Eddie Briseno and colleagues, with an educational william from [employer]. Thrive Questionnaire Date Thrive assessed: 09/17/24 I am a: Patient What is your living situation today?: I have a steady place to live Within the past 12 months, did the food you bought not last and you didn't have the money to get more?: Never true Within the past 12 months, did you worry whether your food would run out before you got money to buy more?: Never true Do you have trouble paying for medicines?: No Do you have trouble getting transportation to medical appointments?: No Do you have trouble paying your heating and electricity bill?: No Do you have trouble taking care of your child, family member or friend?: No Do you have trouble with day-to-day activities such as bathing, preparing meals, shopping, managing finances, etc.?: No Are you currently unemployed and looking for a job?: No Are you interested in more education?: No Please select the resources that you would like help with: None Currently or been in a relationship where the following occur: No concerns reported THRIVE Score: 0 AUDIT C Alcohol Use Questionnaire (AUDIT-C) 1. How often do you have a drink containing alcohol?: 2-4 times a month 2. How many drinks containing alcohol do you have on a typical day when you are drinking?: 3 or 4 3. How often do you have six or more drinks on one occasion?: Never Total Score: 3 KARLA-7 AMB Questionnaire KARLA-7 Date KARLA - 7 assessed: 09/17/24 Feeling nervous, anxious, or on edge: 0 = Not at all Not being able to stop or control worryin = Not at all Worrying too much about different things: 0 = Not at all Trouble relaxin = Not at all Being so restless that it is hard to sit still: 0 = Not at all Becoming easily annoyed or irritable: 0 = Not at all Feeling afraid as if something awful might happen: 0 = Not at all Total KARLA-7 score (0-4 normal; 5-9 mild; 10-14 moderate; 15-21 severe): 0 Source: Developed by Drs. Taurus Banks, Pam Spencer, Eddie Briseno and colleagues, with an educational william from [employer]. Review of Systems Const Denies body aches, Denies chills, Denies fever(s), Denies headache(s) and Denies poor appetite Eyes Reports no additional complaints ENT Denies dysphagia, Denies dizziness, Denies headache(s) and Denies odynophagia Card Denies chest pain, Denies syncope, Denies edema, Denies irregular heart rhythm, Denies lightheadedness and Denies dyspnea Resp Denies cough and Denies dyspnea GI Reports abdominal pain (stomach discomfort-diffusely), Denies constipation, Denies dysphagia, Denies diarrhea, Denies nausea, Denies odynophagia and Denies vomiting Reports no additional complaints Musc Reports no additional complaints and Denies abnormal gait Skin/Breast Reports system reviewed and no additional complaints, except as documented Neuro Denies abnormal gait, Denies dizziness, Denies syncope and Denies headache(s) Psych Reports no additional complaints Physical exam (Primary Care) Vital Signs: Last Vital Signs BP 136/60 09/17/24 09:21 Oxygen Delivery Method Room Air 09/17/24 09:21 BMI result Body Mass Index 32.4 Tobacco/Smoking Status: Tobacco use Status Tobacco use date assessed 09/17/24 09/17/24 09:25 Patient Tobacco Use Status Never used Tobacco 09/17/24 09:20 e-Cigarette/Vaping Use Never Used 09/17/24 09:20 PHQ-9: PHQ-9 Score PHQ-9: Total score 0 09/17/24 10:21 Thrive Assessment: Date of Thrive Assessment Date Thrive assessed 09/17/24 09/17/24 09:25 Currently or been in a relationship where the following occur: No concerns reported Const General: cooperative, healthy appearing, comfortable and no acute distress Orientation/consciousness: patient oriented x3 HENMT Head: Yes normocephalic Ears: hearing grossly normal bilaterally General nose exam: Normal external nose present Eyes General: appearance normal, both eyes and all related structures Conjunctivae: conjunctivae normal Neck Neck: Yes full ROM and Yes no lymphadenopathy Resp Effort & Inspection: normal respiratory effort Auscultation: clear to auscultation bilaterally, no crackles, no rales, no rhonchi and no wheezes Cardio Rate: regular rate Rhythm: regular rhythm Heart sounds: S1 normal heart sound present, no gallops and no murmurs GI Palpation (GI): Soft to palpation and nontender Auscultation: normal bowel sounds General: Yes no CVA tenderness Back/Spine/Pelvis Back: no CVA tenderness Skin General skin exam: no rashes or lesions noted Neuro General: patient oriented x3 Gait exam (Neuro): Normal gait present Extrem General: Yes normal to inspection, Yes full ROM and No edema Psych Affect: normal affect Attitude: cooperative Insight: Good insight present (Psych) Judgement: Good judgement present (Psych) Results Reviewed Results Reviewed: Laboratory Tests 09/16/24 09/16/24 10:01 10:06 WBC 9.1 RBC 4.41 Hgb 13.1 Hct 37.6 MCV 85.3 MCH 29.7 MCHC 34.8 RDW 12.2 Plt Count 374 MPV 9.3 L Immature Gran % (Auto) 0.8 H Sodium 139 Potassium 3.4 Chloride 105 Carbon Dioxide 23 Anion Gap 14 BUN 8 L Creatinine 0.60 Estimated GFR > 60 Fasting Glucose 104 H Calcium 8.9 Total Bilirubin 0.4 AST 25 ALT 35 H Alkaline Phosphatase 59 Total Protein 7.4 Albumin 4.4 Triglycerides 216 H Cholesterol 178 LDL Cholesterol, Calc 100 H HDL Cholesterol 35 L TSH 1.16 Urine Color Yellow Urine Appearance Clear Urine pH 7.0 Ur Specific Prather <= 1.005 Urine Protein Negative Urine Glucose (UA) Negative Urine Ketones Negative Urine Blood Trace H Urine Nitrite Negative Ur Leukocyte Esterase Negative Urine RBC 0-2 Urine WBC 0-5 Ur Squamous Epith Cells 0-2 Urine Bacteria None Seen Hyaline Casts 0-2 Coding Level of Care Code Est Pt Level 3 (53318) Diagnoses Pure hypercholesterolemia E78.00 Impaired fasting glucose R73.01 Obesity (BMI 30-39.9) E66.9 Vitamin D deficiency E55.9 Gastroenteritis K52.9 Time Spent (min) 37 Assessment & Plan Assessment & Plan (1) Pure hypercholesterolemia: Code(s): E78.00 - Pure hypercholesterolemia, unspecified Category: Medical Plan: LDL 100 improved from 124. HDL slightly decreased to 35. Discussed lifestyle modifications including dietary changes and physical activity Encouraged fish oil (2) Impaired fasting glucose: Code(s): R73.01 - Impaired fasting glucose Category: Medical Plan: Fasting glucose 104 same as it was before. A1C was checked on previous labs and it was 6.0%. We will recheck fasting glucose and A1c in 4 months (3) Obesity (BMI 30-39.9): Code(s): E66.9 - Obesity, unspecified Category: Medical Plan: Encouraged to exercise for at least 30 minutes a day/5 days a week Healthy eating discussed. Encouraged to eat fruits/vegetables, protein-fish/baked chicken, and to avoid salty/fried foods, sweets, caffeine and carbohydrates. Encouraged to increase water intake 6-8 glasses a day (4) Vitamin D deficiency: Code(s): E55.9 - Vitamin D deficiency, unspecified Category: Medical Plan: Reports that she has been forgetting to take her vitamin-D supplements. Continue vitamin-D 3 OTC daily (5) Gastroenteritis: Code(s): K52.9 - Noninfective gastroenteritis and colitis, unspecified Category: Medical Plan: Reports abdominal pain and diarrhea after returned from [place] trip. She was pre ordered azithromycin 500 mg x 3 days which she completed and the diarrhea subsided. Her stomach is improving, however she is still feeling some mild discomfort throughout. Encouraged the patient to start taking some probiotics to replenished her natural juan alberto. If stomach discomfort does not subside, contact office for possibly extended antibiotics for 3 more days. Orders: Orders Hemoglobin A1c 4 Months E55.9 - Vitamin D deficiency, unspecified, E66.9 - Obesity, unspecified, E78.00 - Pure hypercholesterolemia, unspecified, R31.9 - Hematuria, unspecified, R73.01 - Impaired fasting glucose TSH reflex Free T4 4 Months E55.9 - Vitamin D deficiency, unspecified, E66.9 - Obesity, unspecified, E78.00 - Pure hypercholesterolemia, unspecified, R31.9 - Hematuria, unspecified, R73.01 - Impaired fasting glucose UA CC w/rflx Micro + Cult 4 Months E55.9 - Vitamin D deficiency, unspecified, E66.9 - Obesity, unspecified, E78.00 - Pure hypercholesterolemia, unspecified, R31.9 - Hematuria, unspecified, R73.01 - Impaired fasting glucose Vitamin D 25-OH Total 4 Months E55.9 - Vitamin D deficiency, unspecified, E66.9 - Obesity, unspecified, E78.00 - Pure hypercholesterolemia, unspecified, R31.9 - Hematuria, unspecified, R73.01 - Impaired fasting glucose Complete Blood Count Auto Diff 4 Months E55.9 - Vitamin D deficiency, unspecified, E66.9 - Obesity, unspecified, E78.00 - Pure hypercholesterolemia, unspecified, R31.9 - Hematuria, unspecified, R73.01 - Impaired fasting glucose Comprehensive [place]. Panel Fast 4 Months E55.9 - Vitamin D deficiency, unspecified, E66.9 - Obesity, unspecified, E78.00 - Pure hypercholesterolemia, unspecified, R31.9 - Hematuria, unspecified, R73.01 - Impaired fasting glucose Lipid Panel 4 Months E55.9 - Vitamin D deficiency, unspecified, E66.9 - Obesity, unspecified, E78.00 - Pure hypercholesterolemia, unspecified, R31.9 - Hematuria, unspecified, R73.01 - Impaired fasting glucose Urine Cytology 4 Months E55.9 - Vitamin D deficiency, unspecified, E66.9 - Obesity, unspecified, E78.00 - Pure hypercholesterolemia, unspecified, R31.9 - Hematuria, unspecified, R73.01 - Impaired fasting glucose
[2024-09-17 09:21] VITALS: BP 136/60; PULSE 86; RESP 18; TEMP 36.8; O2SAT 97; BMI 32.4
== END 2024-09-17 10:09 | disposition home or self-care (01) ==
LOC: HO.HMCH 09:07
PROVIDERS: PCP Internal Medicine
DX: E78.00 Pure hypercholesterolemia, unspecified (principal); R73.01 Impaired fasting glucose; Z68.32 Body mass index [BMI] 32.0-32.9, adult; E66.9 Obesity, unspecified; E55.9 Vitamin D deficiency, unspecified; K52.9 Noninfective gastroenteritis and colitis, unspecified

== ENCOUNTER → 2024-09-17 09:06 | Outpatient (BNVA) | payer OTHER, SELFPAY | PROVIDERS: PCP Internal Medicine | DX: E78.00 Pure hypercholesterolemia, unspecified (principal); R73.01 Impaired fasting glucose; E66.9 Obesity, unspecified; Z68.32 Body mass index [BMI] 32.0-32.9, adult; E55.9 Vitamin D deficiency, unspecified; K52.9 Noninfective gastroenteritis and colitis, unspecified; Z13.30 Encounter for screening examination for mental health and behavioral disorders, unspecified; Z13.39 Encounter for screening examination for other mental health and behavioral disorders | CPT/HCPCS: 99212 ==

== ENCOUNTER 2024-11-23 12:53 | Outpatient (REF) | payer OTHER, SELFPAY ==
--- NOTE | ~2024-11-23 | US_ITS ---
CLINICAL HISTORY: D25.9 - Leiomyoma of uterus, unspecified US pelvis transabdominal and transvaginal with color Doppler Comparison: US/SR - US PELVIS TRANSABDOMINAL AND TRANSVAGINAL - 01/21/24 11:08 EST US/AK/SR - US PELVIS TRANSABDOMINAL AND TRANSVAGINAL - 05/02/23 11:18 EST Findings: Transabdominal scanning performed for overall anatomy. Transvaginal scanning performed for additional detail. LMP: Unknown Anteverted uterus, heterogeneous echotexture measuring 12.6 x 4.9 x 5.4 cm. IUD is positioned within the endometrial cavity. Endometrial lining measuring less than 3 mm. Incidental nabothian cysts. Uterine fibroids: Posterior fundal subserosal 2.5 x 1.8 x 3.0 cm previously measuring 2.3 x 2.1 x 2.4 cm Superior fundal subserosal 4.7 x 4.6 x 4.5 cm previously measuring 4.6 x 5.3 x 4.9 cm Posterior fundal intramural 1.1 x 1.0 x 1.0 cm previously measuring 1.3 x 1.1 x 1.5 cm Anterior fundal subserosal 1.4 x 1.2 x 1.4 cm previously measuring 1.7 x 1.6 x 1.9 cm Posterior fundal subserosal 1.1 x 1.0 x 1.1 cm The right ovary measures, 2.2 x 1.5 x 1.5 cm. Normal sonographic appearance right ovary. The left ovary measures, 2.2 x 2.9 x 2.1 cm. 2.1 x 1.6 x 1.9 cm ovarian cysts. No adnexal masses or fluid collections. No free fluid. Impression: 1. Leiomyomatous uterus. 2. Cyst left ovary probably functional can be followed up in 6 or 12 weeks time. Normal right ovary. No adnexal masses or fluid collections. 3. Uterus containing a IUD within the endometrial cavity. This document has been electronically signed by: Lexx Ngo MD on 11/24/2024 11:06:34
== END 2024-11-23 12:54 | disposition home or self-care (01) ==
LOC: HO.HMGCX 12:53
PROVIDERS: PCP Internal Medicine; Visit Provider Obstetrics & Gynecology
DX: D25.9 Leiomyoma of uterus, unspecified (principal)
CPT/HCPCS: 76830; 76856

== ENCOUNTER → 2024-11-23 12:54 | Outpatient (BNV) | payer OTHER, SELFPAY | PROVIDERS: PCP Internal Medicine; Visit Provider Radiology Diagnostic Radiology | DX: D25.9 Leiomyoma of uterus, unspecified (principal); N28.1 Cyst of kidney, acquired; Z97.5 Presence of (intrauterine) contraceptive device | CPT/HCPCS: 76830; 76856 ==

== ENCOUNTER 2025-01-20 09:44 | Outpatient (AMB) | payer OTHER, SELFPAY ==
--- NOTE | 2025-01-20 09:53 | MHC.OFFVIS ---
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 Ultrasound done recently showed the following: Anteverted uterus, heterogeneous echotexture measuring 12.6 x 4.9 x 5.4 cm. IUD is positioned within the endometrial cavity. Endometrial lining measuring less than 3 mm. Incidental nabothian cysts. Uterine fibroids: Posterior fundal subserosal 2.5 x 1.8 x 3.0 cm previously measuring 2.3 x 2.1 x 2.4 cm Superior fundal subserosal 4.7 x 4.6 x 4.5 cm previously measuring 4.6 x 5.3 x 4.9 cm Posterior fundal intramural 1.1 x 1.0 x 1.0 cm previously measuring 1.3 x 1.1 x 1.5 cm Anterior fundal subserosal 1.4 x 1.2 x 1.4 cm previously measuring 1.7 x 1.6 x 1.9 cm Posterior fundal subserosal 1.1 x 1.0 x 1.1 cm The right ovary measures, 2.2 x 1.5 x 1.5 cm. Normal sonographic appearance right ovary. The left ovary measures, 2.2 x 2.9 x 2.1 cm. 2.1 x 1.6 x 1.9 cm ovarian cysts. No adnexal masses or fluid collections. No free fluid. [facility]LY [facility] Medical History Impaired fasting glucose Colon cancer screening Allergic rhinitis Vitamin D deficiency Pure hypercholesterolemia Obesity (BMI 30-39.9) Surgical History Hx of cervical polypectomy History of colonoscopy (~07/09/21) Family History Father Hypertension Diabetes Mother Medical history unknown Social History Housing: Apartment Alcohol intake: current Alcohol intake frequency: a few times a week Alcohol type: wine and hard liquor Patient Tobacco Use Status: Never used Tobacco e-Cigarette/Vaping Use: Never Used Second Hand Smoke Exposure: Yes service: No Current occupational status: employed Cognitive needs: No Hearing needs: No Vision needs: No Review of Systems Const All systems reviewed & are unremarkable except as noted in HPI and below Reports as per HPI and Reports no additional complaints GI Reports no additional complaints Reports no additional complaints Physical Exam Vital Signs: Last Vital Signs BP 142/92 H 01/20/25 09:58 BMI result Body Mass Index 31.9 Assessment & Plan Assessment & Plan (1) Uterine myoma: Code(s): D25.9 - Leiomyoma of uterus, unspecified Category: Medical Qualifiers: Uterine leiomyoma location: unspecified location Qualified Code(s): D25.9 - Leiomyoma of uterus, unspecified Plan: Discussed with the patient the findings on pelvic ultrasound & the risk of myosarcoma; in addition reviewed with the patient that malignancy and pre malignancy cannot be ruled out without hysterectomy for pathological evaluation ; furthermore, explained to the patient the limitation of pelvic ultrasound and endometrial biopsy in the setting. Discussed with the patient the options of treatment including expectant management versus hysterectomy; the pros and cons, risks benefits of each approach were discussed with the patient including the fact that in cases of myosarcoma, surgical treatment can lead to early diagnosis and positively affects the prognosis; after further discussion, the patient decided to proceed with expectant management. Will repeat pelvic ultrasound periodically. Instructions given to patient to call in case any of the following occurs: pressure symptoms, abnormal uterine bleeding, pelvic pain; and to schedule a 12 months pelvic ultrasound (order placed) and a follow-up appointment . All questions answered, the patient verbalized understanding and agreed with the plan . Orders: Orders US pelvic and transvaginal 1 Year D25.9 - Leiomyoma of uterus, unspecified Coding Level of Care Code Est Pt Level 3 (80041) Diagnoses Uterine leiomyoma, unspecified location D25.9 Uterine leiomyoma location: unspecified location
[2025-01-20 09:58] VITALS: BP 142/92; BMI 31.9
== END 2025-01-20 10:14 | disposition home or self-care (01) ==
LOC: HO.HWS 09:45
PROVIDERS: PCP Internal Medicine; Visit Provider Obstetrics & Gynecology
DX: D25.9 Leiomyoma of uterus, unspecified (principal)
CPT/HCPCS: 99213

== ENCOUNTER → 2025-01-20 09:44 | Outpatient (BNVA) | payer OTHER, SELFPAY | PROVIDERS: PCP Internal Medicine; Visit Provider Obstetrics & Gynecology | DX: Z71.2 Person consulting for explanation of examination or test findings (principal); D25.9 Leiomyoma of uterus, unspecified | CPT/HCPCS: 99212 ==

== ENCOUNTER 2025-03-01 08:57 | Outpatient (AMB) | payer OTHER, SELFPAY ==
[2025-03-01 08:58] VITALS: BP 130/84; PULSE 83; O2SAT 95; BMI 32.7
--- NOTE | 2025-03-01 08:58 | MHC.PC.OV ---
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 Accompanied by: Self / Same As Patient Allergies ibuprofen Allergy (Unknown, Verified 03/01/25 09:25) hives mold Allergy (Unknown, Verified 03/01/25 09:25) Hives Penicillins (PENICILLINS) Allergy (Unknown, Verified 03/01/25 09:25) Hives Medication List - Last Reconciled 03/01/25 by Ian La MD cetirizine (Zyrtec) 10 mg PO DAILY fluticasone propionate 50 mcg/actuation 1 spray intranasal DAILY hydroxyzine HCl 25 mg PO TID PRN 30 days ketoconazole 1% 1 appl topical 2XW triamcinolone acetonide 0.1% 1 appl topical DAILY Tobacco use date assessed: 03/01/25 Dental Screening Dental Screen Date: 03/01/25 Did you have a dental visit in the last 12 months?: No Did you have a dental problem in the last 6 months where you did not have access to dental care?: No Was dental information given to patient?: No HPI Annual Exam HPI Details Patient comes in today for her annual physical examination States that she feels okay She denies any headaches or dizziness Denies any chest pains, no SOB No nausea/vomiting, no abdominal pain No change in bowel habits noted She denies any acute urinary symptoms Patient is currently on She was not able to get her follow up labs done prior to her appointment today but she did have labs done back in August 2024 She is up-to-date with her cancer screenings - had her screening colonoscopy done back on 07/09/2021 and her next colonoscopy is recommended in 10 years (2031) She had her annual mammogram done back on 05/07/[address] Gomez for her yearly gynecology exam - this was last done on 06/24/24 She also follows up with Dr. Gomez regularly for her uterine myoma and was recommended options of treatment including expectant management versus hysterectomy - patient decided to proceed with expectant management for now and is scheduled for repeat pelvic US in 1 year for follow up She had a negative pap smear a couple of years ago on 05/22/23 [facility] Medical History Impaired fasting glucose Colon cancer screening Allergic rhinitis Vitamin D deficiency Pure hypercholesterolemia Obesity (BMI 30-39.9) Surgical History Hx of cervical polypectomy History of colonoscopy (~07/09/21) Family History Father Hypertension Diabetes Mother Medical history unknown Social History Housing: Apartment Alcohol intake: current Alcohol intake frequency: a few times a week Alcohol type: wine and hard liquor Patient Tobacco Use Status: Never used Tobacco e-Cigarette/Vaping Use: Never Used Second Hand Smoke Exposure: Yes service: No Current occupational status: employed Cognitive needs: No Hearing needs: No Vision needs: No Questionnaire PHQ-9 Over the last 2 weeks, how often have you been bothered by any of the following problems? 1. Little interest or pleasure in doing things: not at all 2. Feeling down, depressed, or hopeless: not at all 3. Trouble falling or staying asleep, or sleeping too much: not at all 4. Feeling tired or having little energy: not at all 5. Poor appetite or overeating: not at all 6. Feeling bad about yourself - or that you are a failure or have let yourself or your family down: not at all 7. Trouble concentrating on things, such as reading the newspaper or watching television: not at all 8. Moving or speaking so slowly that other people could have noticed. Or the opposite - being so fidgety or restless that you have been moving around a lot more than usual: not at all 9. Thoughts that you would be better off or of hurting yourself in some way: not at all Total score: 0 Depression Screening Interpretation: Negative Depression Screening Done: Yes 29610 - PHQ-9 Billing: Yes Source: Developed by Drs. Taurus Banks, Pam Spencer, Eddie Briseno and colleagues, with an educational william from [employer]. Thrive Questionnaire Date Thrive assessed: 03/01/25 I am a: Patient What is your living situation today?: I have a steady place to live Within the past 12 months, did the food you bought not last and you didn't have the money to get more?: Never true Within the past 12 months, did you worry whether your food would run out before you got money to buy more?: Never true Do you have trouble paying for medicines?: No Do you have trouble getting transportation to medical appointments?: No Do you have trouble paying your heating and electricity bill?: No Do you have trouble taking care of your child, family member or friend?: No Do you have trouble with day-to-day activities such as bathing, preparing meals, shopping, managing finances, etc.?: No Are you currently unemployed and looking for a job?: No Are you interested in more education?: No Currently or been in a relationship where the following occur: No concerns reported THRIVE Score: 0 AUDIT C Alcohol Use Questionnaire (AUDIT-C) 1. How often do you have a drink containing alcohol?: 2-4 times a month 2. How many drinks containing alcohol do you have on a typical day when you are drinking?: 3 or 4 3. How often do you have six or more drinks on one occasion?: Never Total Score: 3 Score Reviewed/Action Taken: Yes KARLA-7 AMB Questionnaire KARLA-7 Date KARLA - 7 assessed: 03/01/25 Feeling nervous, anxious, or on edge: 0 = Not at all Not being able to stop or control worryin = Not at all Worrying too much about different things: 0 = Not at all Trouble relaxin = Not at all Being so restless that it is hard to sit still: 0 = Not at all Becoming easily annoyed or irritable: 0 = Not at all Feeling afraid as if something awful might happen: 0 = Not at all Total KARLA-7 score (0-4 normal; 5-9 mild; 10-14 moderate; 15-21 severe): 0 Source: Developed by Drs. Taurus Banks, Pam Spencer, Eddie Briseno and colleagues, with an educational william from [employer]. Review of Systems Const Denies chills, Denies fatigue, Denies fever(s), Denies headache(s) and Denies malaise Eyes Denies blurry vision, Denies change in vision, Denies irritation and Denies itchy eyes ENT Denies dysphagia, Denies dizziness, Denies otalgia, Denies headache(s), Denies nasal congestion, Denies neck pain, Denies odynophagia, Denies sinus pain and Denies sore throat Card Denies chest pain, Denies rapid heart rate, Denies irregular heart rhythm, Denies palpitations and Denies dyspnea Resp Denies chest congestion, Denies cough, Denies dyspnea and Denies wheezing GI Denies abdominal pain, Denies bloating, Denies constipation, Denies dysphagia, Denies heartburn, Denies diarrhea, Denies nausea, Denies odynophagia and Denies vomiting Denies hematuria, Denies urinary frequency, Denies dysuria, Denies urinary incontinence and Denies urinary urgency Musc Denies back pain, Denies arthralgias, Denies joint swelling, Denies muscle weakness and Denies neck pain Skin/Breast Denies breast pain, Denies breast mass, Denies change in pigmentation, Denies lesions, Denies rash and Denies unusual bruising Neuro Denies dizziness, Denies headache(s) and Denies paresthesias Psych Denies anxiety and Denies depression Endo Denies fatigue and Denies palpitations Krishna/Lymph Denies easy bruising Aller/Immun Denies itchy eyes and Denies wheezing Physical exam (Primary Care) Vital Signs: Last Vital Signs Pulse 83 03/01/25 08:58 BP 130/84 03/01/25 08:58 Pulse Ox 95 03/01/25 08:58 Oxygen Delivery Method Room Air 03/01/25 08:58 BMI result Body Mass Index 32.7 Tobacco/Smoking Status: Tobacco use Status Tobacco use date assessed 03/01/25 03/01/25 09:03 Patient Tobacco Use Status Never used Tobacco 03/01/25 09:03 e-Cigarette/Vaping Use Never Used 03/01/25 09:03 PHQ-9: PHQ-9 Score PHQ-9: Total score 0 03/01/25 09:03 Depression Screening Interpretation: Negative Thrive Assessment: Date of Thrive Assessment Date Thrive assessed 03/01/25 03/01/25 09:03 Currently or been in a relationship where the following occur: No concerns reported Const General: no acute distress, alert and awake Orientation/consciousness: patient oriented x3 HENMT Head: Yes normocephalic and Yes atraumatic Ears: external ears normal, TM's normal bilaterally and EAC's normal General nose exam: No nasal discharge present Face and sinus: Yes normal facial exam and Yes sinuses nontender Teeth and gingiva: dentition normal Throat: Yes posterior oropharynx normal and Yes tonsils normal (no TP congestion) Eyes Eyelids: Yes eyelids normal Conjunctivae: conjunctivae normal Pupils: Equal, round and reactive pupils present EOM: EOMs intact bilaterally Neck Neck: Yes no lymphadenopathy and Yes supple Thyroid: Thyroid normal Resp Auscultation: clear to auscultation bilaterally, no rales and no wheezes Cardio Rate: regular rate Rhythm: regular rhythm Heart sounds: no murmurs GI Palpation (GI): Soft to palpation, nontender and No hepatosplenomegaly present Auscultation: normal bowel sounds General: Yes no CVA tenderness Back/Spine/Pelvis Back: no CVA tenderness Thoracic/Lumbar Spine: thoracic and lumbar spine normal to inspection Skin Lesions: no lesions Rashes: no rashes Neuro General: patient oriented x3, moves all extremities, no focal motor deficits and CN's II-XI intact bilaterally Cranial nerves: Yes Equal, round and reactive pupils present Cognition (Neuro): normal cognition Gait exam (Neuro): Normal gait present Extrem General: Yes no clubbing, cyanosis or edema Results Reviewed Results Reviewed: Laboratory Tests 09/16/24 09/16/24 10:01 10:06 WBC 9.1 Hgb 13.1 Hct 37.6 Plt Count 374 Sodium 139 Potassium 3.4 Creatinine 0.60 Estimated GFR > 60 Fasting Glucose 104 H Calcium 8.9 AST 25 ALT 35 H Triglycerides 216 H Cholesterol 178 LDL Cholesterol, Calc 100 H HDL Cholesterol 35 L TSH 1.16 Ur Specific [place] <= 1.005 Urine Protein Negative Urine Glucose (UA) Negative Urine Blood Trace H Urine Nitrite Negative Ur Leukocyte Esterase Negative Coding Level of Care Code Est Pt Prev Care 40-64y(52942) Diagnoses Annual physical exam Z00.00 Pure hypercholesterolemia E78.00 Impaired fasting glucose R73.01 Vitamin D deficiency E55.9 Seasonal allergic rhinitis, unspecified trigger J30.2 Allergic rhinitis trigger: unspecified Allergic rhinitis seasonality: seasonal Tinea corporis B35.4 Uterine leiomyoma, unspecified location D25.9 Uterine leiomyoma location: unspecified location Obesity (BMI 30-39.9) E66.9 Additional Codes PHQ-9 - 69515 - PHQ-9 Billing: Yes ([id number]) Assessment & Plan Assessment & Plan (1) Annual physical exam: Code(s): Z00.00 - Encounter for general adult medical examination without abnormal findings Category: Medical Plan: Patient was not able to get her previously ordered labs done yet - states that she will try to go and get them done MASSIEL She is up-to-date with her cancer screenings - had her mammogram in May 2024 and gynecology exam in June 2024 She is currently seeing Dr. Gomez for uterine fibroids/myoma and had endometrial Bx done earlier this year that came out benign Pap smear last done on 05/22/23 came out negative She had her screening colonoscopy done in 2021 that came out normal - is recommended for repeat colonoscopy in 10 years (2031) (2) Pure hypercholesterolemia: Code(s): E78.00 - Pure hypercholesterolemia, unspecified Category: Medical Plan: Have reminded patient that her cholesterol levels were still high when last checked a few months ago in August 2024 Patient admits that she is still not completely compliant with her diet Have advised her that if her cholesterol levels on her follow up labs come back higher than they were a few months ago, we might consider starting her on cholesterol-lowering medications to help get her numbers down Will have her recheck her labs and fasting lipids again in 6 months for follow up (3) Impaired fasting glucose: Code(s): R73.01 - Impaired fasting glucose Category: Medical Plan: Reinforced low calorie/low carb diet; exercise as tolerated Will recheck her FBS and HgbA1c for follow up (4) Vitamin D deficiency: Code(s): E55.9 - Vitamin D deficiency, unspecified Category: Medical Plan: Will recheck her Vitamin D level for follow up (5) Allergic rhinitis: Code(s): J30.9 - Allergic rhinitis, unspecified Category: Medical Qualifiers: Allergic rhinitis trigger: unspecified Allergic rhinitis seasonality: seasonal Qualified Code(s): J30.2 - Other seasonal allergic rhinitis Plan: Continue Cetirizine 10 mg QD PRN and Fluticasone 50 mcg nasal spray QD PRN (6) Tinea corporis: Code(s): B35.4 - Tinea corporis Category: Medical Plan: States that she is prescribed topical antifungal Rxs from [facility] when needed Follow up with dermatology as scheduled or as needed (7) Uterine myoma: Code(s): D25.9 - Leiomyoma of uterus, unspecified Category: Medical Qualifiers: Uterine leiomyoma location: unspecified location Qualified Code(s): D25.9 - Leiomyoma of uterus, unspecified Plan: Pelvic US done in January 2024 revealed (+) multiple uterine fibroids with the largest measuring 6.1 cm. There is also a benign 4.9 cm right ovarian cyst that does not require follow-up Her most recent ultrasound done in November 2024 revealed (+) leiomyomatous uterus and (+) cyst on the left ovary that is probably functional and can be followed up in 6 or 12 weeks; normal right ovary with no adnexal masses or fluid collections. Uterus containing an IUD within the endometrial cavity She was recommended options of treatment, including expectant management versus hysterectomy - patient decided to proceed with expectant management for now and is scheduled for repeat pelvic US in 1 year for follow up Follow up with gynecology (Dr. Gomez) as scheduled (8) Obesity (BMI 30-39.9): Code(s): E66.9 - Obesity, unspecified Category: Medical Plan: Reinforced diet/exercise as tolerated/lose weight Plan Follow up in 6 months Orders: Orders Complete Blood Count Auto Diff Today E55.9 - Vitamin D deficiency, unspecified, E66.9 - Obesity, unspecified, E78.00 - Pure hypercholesterolemia, unspecified, R31.9 - Hematuria, unspecified, R73.01 - Impaired fasting glucose Comprehensive Foster. Panel Fast Today E55.9 - Vitamin D deficiency, unspecified, E66.9 - Obesity, unspecified, E78.00 - Pure hypercholesterolemia, unspecified, R31.9 - Hematuria, unspecified, R73.01 - Impaired fasting glucose Lipid Panel Today E55.9 - Vitamin D deficiency, unspecified, E66.9 - Obesity, unspecified, E78.00 - Pure hypercholesterolemia, unspecified, R31.9 - Hematuria, unspecified, R73.01 - Impaired fasting glucose TSH reflex Free T4 Today E55.9 - Vitamin D deficiency, unspecified, E66.9 - Obesity, unspecified, E78.00 - Pure hypercholesterolemia, unspecified, R31.9 - Hematuria, unspecified, R73.01 - Impaired fasting glucose UA CC w/rflx Micro + Cult Today E55.9 - Vitamin D deficiency, unspecified, E66.9 - Obesity, unspecified, E78.00 - Pure hypercholesterolemia, unspecified, R31.9 - Hematuria, unspecified, R73.01 - Impaired fasting glucose Comprehensive Foster. Panel Fast 6 Months E78.00 - Pure hypercholesterolemia, unspecified Hemoglobin A1c Today E55.9 - Vitamin D deficiency, unspecified, E66.9 - Obesity, unspecified, E78.00 - Pure hypercholesterolemia, unspecified, R31.9 - Hematuria, unspecified, R73.01 - Impaired fasting glucose Vitamin D 25-OH Total Today E55.9 - Vitamin D deficiency, unspecified, E66.9 - Obesity, unspecified, E78.00 - Pure hypercholesterolemia, unspecified, R31.9 - Hematuria, unspecified, R73.01 - Impaired fasting glucose Urine Cytology Today E55.9 - Vitamin D deficiency, unspecified, E66.9 - Obesity, unspecified, E78.00 - Pure hypercholesterolemia, unspecified, R31.9 - Hematuria, unspecified, R73.01 - Impaired fasting glucose Lipid Panel 6 Months E78.00 - Pure hypercholesterolemia, unspecified Hemoglobin A1c 6 Months R73.01 - Impaired fasting glucose
== END 2025-03-01 09:44 | disposition home or self-care (01) ==
PROVIDERS: PCP Internal Medicine; Visit Provider Internal Medicine
DX: Z00.00 Encounter for general adult medical examination without abnormal findings (principal); E78.00 Pure hypercholesterolemia, unspecified; R73.01 Impaired fasting glucose; E55.9 Vitamin D deficiency, unspecified; J30.2 Other seasonal allergic rhinitis; B35.4 Tinea corporis; D25.9 Leiomyoma of uterus, unspecified; E66.9 Obesity, unspecified

== ENCOUNTER → 2025-03-01 08:57 | Outpatient (BNVA) | payer OTHER, SELFPAY | PROVIDERS: PCP Internal Medicine; Visit Provider Internal Medicine | DX: Z00.00 Encounter for general adult medical examination without abnormal findings (principal); E78.00 Pure hypercholesterolemia, unspecified; R73.01 Impaired fasting glucose; E55.9 Vitamin D deficiency, unspecified; J30.2 Other seasonal allergic rhinitis; B35.4 Tinea corporis; E66.9 Obesity, unspecified; D25.9 Leiomyoma of uterus, unspecified; N83.202 Unspecified ovarian cyst, left side; R31.9 Hematuria, unspecified; Z97.5 Presence of (intrauterine) contraceptive device; Z13.31 Encounter for screening for depression | CPT/HCPCS: 96127; 99396 ==